=== PATIENT | female | born 1945 | race Caucasian/White ===

== ENCOUNTER 2017-02-27 08:08 | Inpatient (IN) | payer MEDICARE ==
--- NOTE | 2017-02-22 04:05 | HP ---
PREOPERATIVE HISTORY AND PHYSICAL: DATE OF ADMISSION: 02/27/17 PROVIDER: Dr. Shavon Choe. CHIEF COMPLAINT: Right hip pain. HISTORY OF PRESENT ILLNESS: Ms. Daigle is a 71-year-old female who has been followed by Dr. Choe for ongoing pain in her right hip. She states that the pain has been affecting her daily living and is having difficulty walking for any substantial distance. She has failed conservative treatment of pain medications, physical therapy, and activity modification. She would like to proceed with a right total hip arthroplasty. PAST MEDICAL HISTORY: COPD, obstructive sleep apnea, rheumatoid arthritis, spinal stenosis, history of CVA, GERD, hypertension, history of DVT, and hypothyroidism. PAST SURGICAL HISTORY: Hysterectomy, 1974; bilateral oophorectomy, 1990; incisional hernia repair in 1999; small bowel obstruction, 1992; back surgery, 1988; cervical spine fusion, 1988; bunionectomy and hammertoe correction, 2009; right knee surgery in the mid ; right shoulder rotator cuff repair in 2012 ; implanted event monitor in 2012. She reports no complications of anesthesia with those procedures. CURRENT MEDICATIONS: 1. Furosemide 20 mg p.o. every other day as needed. 2. Oxygen 2 L during the day. 3. Zyrtec 10 mg p.o. q. day. 4. Percocet 5/325 mg once daily. 5. Pramipexole 0.125 mg p.o. q.h.s. 6. Estradiol 0.05 mg per 24-hour patch weekly. 7. Aspirin 81 mg p.o. q. day. 8. Voltaren gel 1% applied to the hip twice daily as needed. 9. ProAir HFA 108 mcg/act 1 to 2 inhalations every 4 hours as needed. 10. Lisinopril 5 mg p.o. q. day. 11. Fluticasone 50 mcg/act 2 intranasal puffs once daily. 12. Levothyroxine 100 mcg daily. 13. Omeprazole 20 mg p.o. b.i.d. 14. Gabapentin 600 mg p.o. b.i.d. 15. Colace 100 mg p.o. b.i.d. 16. Calcium 600+D 600/200 mg/units 1 p.o. b.i.d. 17. Tramadol 50 mg 1 to 2 tabs every 6 hours as needed. 18. Celebrex 200 mg by mouth b.i.d. 19. Methotrexate 2.5 mg 6 tabs by mouth every week. ALLERGIES: AUGMENTIN, AMINOPHYLLINE, EPINEPHRINE, ERYTHROMYCIN, MYCOLOG-II, ___ __ JUDITH, LIPITOR, PRAVASTATIN, TAPE, and LATEX. FAMILY HISTORY: Positive for heart disease, kidney disease, and COPD in her father. Stroke in her mother. Cancer in her sibling. SOCIAL HISTORY: The patient is . She lives alone. She is retired. She quit smoking in 2004. She smoked 1 pack per day for 30 years prior to that. She denies alcohol use. She denies illicit drug use. She does not exercise regularly. REVIEW OF SYSTEMS: Constitutional: Negative for recent hospitalizations, fevers, chills, night sweats, or weight loss. Head: Negative for headaches, lightheadedness, or balance problems. Cardiovascular: Negative for chest or arm pain with exertion, history of heart attack, heart murmur, heart palpitations. Positive for high blood pressure. Positive for DVT, but negative for embolism. Respiratory: Positive for chronic cough and shortness of breath with exertion. Positive for COPD. Gastrointestinal: Positive for heartburn. Negative for nausea, vomiting, diarrhea. Positive for constipation. Positive for GERD. Genitourinary: Negative for nighttime urination, frequency of urination, urinary tract infections, or kidney problems. Musculoskeletal: Positive for chronic back and neck pain. Negative for recent fracture. Skin: Negative for rashes, lesions, lumps, or sores. Neurologic: Negative for seizure, stroke, epilepsy, depression, or anxiety. Endocrine: Positive for hypothyroidism. Negative for diabetes. Hematology: Negative for easy bleeding , bruising, or anemia. PHYSICAL EXAMINATION GENERAL: She is a well-developed, well-nourished, pleasant female, in no acute distress at rest. She is alert and oriented x3 with appropriate mood and affect. VITAL SIGNS: The patient is 5 feet tall, 170 pounds, blood pressure 173/80, pulse 73, temperature 96.8. HEENT: Normocephalic, atraumatic. Her hearing and vision are grossly intact. NECK: Her trachea is midline. LUNGS: Decreased breath sounds in all lung vilchis bilaterally. Positive expiratory wheezes. No rales or rhonchi. CARDIOVASCULAR: Regular rate and rhythm. No murmurs, rubs, or gallops. Normal S1, S2. ABDOMEN: Soft, nondistended, nontender with normal bowel sounds. EXTREMITIES: Exam of the right lower extremity, her skin is intact without abrasions or open wounds. She does have some areas of erythema that appeared to be petechiae, but no open lesions. There is no edema, ecchymosis, or gross deformity. She is tender to palpation in the right hip region over the greater trochanter as well as deep in the groin. She only has hip flexion to about 90 degrees. Any rotation causes severe pain. She is distally neurovascularly intact. IMPRESSION: Right hip osteoarthritis. PLAN: The patient is to undergo right total hip arthroplasty by Dr. Choe on . The risks, benefits, and postoperative course were discussed with the patient at length and she would like to proceed. She has obtained medical clearance from her primary care doctor, Dr. Reinoso, as well as Dr. Santamaria, her equipment inspector. She has a prescription from primary care for Lovenox to use for postoperative DVT prophylaxis given her history of prior DVT. She understands to discontinue the aspirin 1 week prior to surgery. She has stopped the methotrexate 2 weeks prior to surgery as well. We will follow up with the patient in the postoperative phase. All of her questions were answered to her full satisfaction. She is understanding to call if she develops any problems or concerns. UZAIR PARSONS [id number]/[facility] #: [id number] DONALD
[~2017-02-27 08:08] MED LIST: Buffered Lidocaine 0.9% SYRIN* 5 ML/SYR SYRINGE INTRADERM ONE; Dexamethasone IV* 4 MG/ML 1 ML (4 MG) IV SLOW PU ONE; Levalbuterol 0.63MG/3ML NEB INH ONE
[2017-02-27] MEDS ORDERED: Clindamycin 900 MG IVPREMIX(* 900 MG/50 ML SDV IV ONE (08:30)
[2017-02-27] MEDS ORDERED: Buffered Lidocaine 0.9% SYRIN* 5 ML/SYR SYRINGE ONE (08:30)
[2017-02-27] MEDS ORDERED: Dexamethasone IV* 4 MG/ML 1 ML (4 MG) ONE (08:30)
[2017-02-27] MEDS ORDERED: Levalbuterol 1.25MG/0.5ML NEB ONE (08:30)
[2017-02-27] MEDS ORDERED: KETAMINE HCL* 50 MG/ML 10 ML VIAL ONE (09:46)
[2017-02-27] MEDS ORDERED: Midazolam* 1 MG/ML 5 ML VIAL (5 MG) ONE ×2 (09:46→11:40)
[2017-02-27] MEDS ORDERED: Morphine PF AMP (0.5MG/ML)* 5 MG/10 ML AMP ONE (09:46)
[2017-02-27] MEDS ORDERED: Propofol* 10 MG/ML 20 ML BTL IV PUSH ONE (09:47)
[2017-02-27] MEDS ORDERED: Ondansetron INJ* 2 MG/ML VIAL ONE (09:47)
[2017-02-27] MEDS ORDERED: Bupivacaine 0.5% SDV PF* 30 ML VIAL ONE (10:35)
[2017-02-27] MEDS ORDERED: Lidocaine 2% PF * 5 ML VIAL ONE (10:52)
[2017-02-27] MEDS ORDERED: Scopolomine PATCH Remove* 1 NOTE MISC PATCH OFF PRN (11:17)
[2017-02-27] MEDS ORDERED: DiMENhydriNATE IV* 50 MG/ML VIAL IV PUSH PRN (11:17)
[2017-02-27] MEDS ORDERED: Naloxone* 0.4 MG/ML 1 ML VIAL IV PRN (11:17)
[2017-02-27] MEDS ORDERED: Ondansetron INJ* 2 MG/ML VIAL IV PRN ×2 (11:17→13:27)
[2017-02-27] MEDS ORDERED: oxyCODONE/Acetamin 5/325 MG* TAB PO PRN ×2 (11:17→13:27)
[2017-02-27] MEDS ORDERED: Nalbuphine* 20 MG/ML 1 ML VIAL IV PRN ×2 (11:17)
[2017-02-27] MEDS ORDERED: Scopolamine 1.5 mg* PATCH TRANSDERM PRN (11:17)
[2017-02-27] MEDS ORDERED: fentaNYL* 50 MCG/ML 2 ML VIAL (100 MCG VIAL) IV PRN (11:17)
[2017-02-27] MEDS ORDERED: oxyCODONE TAB* 5 MG TAB PO PRN (13:27)
[2017-02-27] MEDS ORDERED: Ondansetron TAB* 4 MG PO PRN (13:27)
[2017-02-27] MEDS ORDERED: diPHENhydraMINE IV* 50 MG/ML 1 ml VIAL (BENADRYL) IV PRN (13:27)
[2017-02-27] MEDS ORDERED: Magnesium Hydroxide LIQ* 30 ML UDC PO PRN (13:27)
[2017-02-27] MEDS ORDERED: Polyethylene Glycol 3350* 17 GM PACKET PO PRN (13:27)
[2017-02-27] MEDS ORDERED: Morphine INJ* 2 MG/ML 1 ML SYRINGE IV PRN (13:27)
--- NOTE | 2017-02-27 13:30 | RAD ---
Indication: RIGHT total hip replacement. Comparison: No relevant prior exams available on the [facility] for comparison. Technique: LEFT lateral decubitus crosstable AP pelvis and RIGHT hip 1108 hours Report: RIGHT prosthetic acetabular component in place. Femoral test fit component/reamer in place. No fracture evident. Lateral soft tissue edema and subcutaneous emphysema. IMPRESSION: Intraoperative control film.
[2017-02-27] MEDS ORDERED: Furosemide TAB* 20 MG PO PRN (13:32)
[2017-02-27] MEDS ORDERED: Albuterol HFA INHALER* 8 gm MDI INH PRN (13:32)
[2017-02-27] MEDS ORDERED: ceFAZolin VIAL(*) 1 GM in NS 0.9% 50 ML* 50 ML IVPB SCH (14:00)
--- NOTE | 2017-02-27 14:01 | RAD ---
HISTORY: Status post right hip arthroplasty COMPARISONS: February 15, 2017 VIEWS: 3, Frontal view of the pelvis with frontal and frog-leg views of the right hip FINDINGS: BONE DENSITY: Normal. BONES: The patient is status post right hip arthroplasty. There is no hardware failure or osteolysis. JOINTS: The patient is status post right hip arthroplasty ALIGNMENT: There is no dislocation. SOFT TISSUES: Unremarkable. OTHER FINDINGS: None. IMPRESSION: STATUS POST RIGHT HIP ARTHROPLASTY
[2017-02-27] MEDS: oxyCODONE/Acetamin 5/325 MG* TAB PO PRN ×2 (16:48→20:51)
[2017-02-27] MEDS: Gabapentin CAP(*) 300 MG PO SCH ×2 (16:48→20:49)
[2017-02-27] MEDS ORDERED: Warfarin TAB(*) 6 MG PO ONE (17:00)
[2017-02-27] MEDS: Clindamycin 600 MG IVPREMIX(* 600 MG/50 ML SDV IV SCH (18:46)
[2017-02-27] MEDS ORDERED: Pramipexole TAB* 0.125 MG PO SCH (20:00)
[2017-02-27] MEDS: Mometasone/Formoter 200/5 MDI INH SCH (20:38)
[2017-02-27] MEDS: Docusate CAP* 100 MG PO SCH (20:48)
[2017-02-27] MEDS: Hydroxychloroquine TAB* 200 MG PO SCH (20:49)
[2017-02-27] MEDS: Omeprazole CAP* 20 MG PO SCH (20:50)
[2017-02-28] MEDS: Clindamycin 600 MG IVPREMIX(* 600 MG/50 ML SDV IV SCH ×2 (02:30→11:00)
--- NOTE | 2017-02-28 04:26 | OP ---
DATE OF OPERATION: 02/27/17 - ROOM #348 DATE OF : 43 ATTENDING SURGEON: Shavon Choe MD LOSS CLAIM CLERK: UZAIR Hinojosa. Ms. Alexandra did help throughout the procedure with preparation of the leg, wound retraction, manipulation of the hip, and wound closure. ANESTHESIOLOGIST: Dr. Viramontes ANESTHESIA: Spinal. PRE-OP DIAGNOSIS: Severe end-stage degenerative osteoarthritis of the right hip joint. POST-OP DIAGNOSES: Severe end-stage degenerative osteoarthritis of the right hip joint, osteopenia, complete abductor medius and minimus tear. OPERATIVE PROCEDURE: Right total hip arthroplasty with acetabular bone autografting from the femoral head. Primary abductor tendon repair. COMPLICATION: None. EBL: 300 cc. SPECIMEN: Femoral head and acetabular reaming sent to Pathology. BRIEF HISTORY/INDICATION: Ms. Daigle is a 71-year-old female with years of increasingly severe right hip pain. She failed conservative treatment with antiinflammatories, pain medication, intraarticular injections, and physical therapy. She had difficulty walking with ambulatory assistive device. Radiograph shows [id number] arthritis. The patient elected to undergo a right total hip arthroplasty due to continued pain and decreased quality of life. Informed consent was obtained from the patient. She understood the risks of surgery included but were not limited to bleeding, infection, damage to nearby structures, continued pain, need for further surgery, intraoperative fracture, nerve palsy, hardware failure or loosening, dislocation, leg length discrepancy, stroke, heart attack, blood clot, and . She wished to proceed. HARDWARE USED: Uncemented manish total hip hardware was used. For the acetabulum, a 50 mm cluster hole tritanium cup. 20 mm screw and trident x3 poly liner 36. For the stem an accolade tmzf size 2 with a 127 degree femoral neck. 36 +0 biolox delta femoral head was used. INTRAOPERATIVE FINDINGS: Intraoperatively, the patient was noted to have severe osteopenia throughout the procedure. She had a complete abductor tendon tear of the greater trochanter with proximal and anterior retraction. This involved the entire gluteus medius and minimus. She had total loss of cartilage along the femoral head and acetabulum. She had significant subchondral cyst formation in the weightbearing dome of the acetabulum, which was bone grafted with femoral head autograft. DESCRIPTION OF PROCEDURE: Ms. Daigle was identified in the preanesthesia unit. Her right lower extremity was marked as the correct operative side. Informed consent was signed and placed in the chart. The patient was taken to the operating room and placed under spinal anesthesia. Jacobs catheter was placed. She was placed in the left lateral decubitus position on the pegboard. All bony prominences were well padded. Right lower extremity was prepped and draped in the usual sterile fashion. Preop time-out was made to correctly identify the patient's side and site. Appropriate perioperative antibiotics were given within 1 hour of incision. A 15- cm posterior hip incision was made with a 10-blade. Electrocautery was used to dissect down to at least 7-cm of subcutaneous fat. The lateral fascial layer was incised in line with the skin incision. Charnley retractor was placed and the posterior aspect of the hip joint was visualized. The abductor tendons along the greater trochanter was completely retracted and torn. These were retracted anteriorly and superiorly. They were mobile only a minimal amount when grasped with a polly clamp. Electrocautery was used to create a single capsular and tendon flap along the posterolateral femur. This was tagged with four #5 Ethibonds. Posterior aspect of the hip joint was visualized. The hip was carefully dislocated. Lesser trochanter to center of the femoral head measured 50 mm. Oscillating saw was used to make the appropriate femoral neck cut. The femur was carefully retracted anteriorly. After appropriate placement of retractors, the acetabulum was re-visualized. Long-handle knife was used to remove any remaining labrum from the acetabular rim. The acetabulum was sequentially reamed up to a size 49. A size 49 had a subchondral bleeding bone bed. She was noted to have extreme osteopenia. There was significant cyst formation along the weightbearing dome of the acetabulum. Bone graft was collected from the femoral head and packed into this area. A 49 trial had good fit. Final implant chosen was a Tritanium hemispherical cluster hole shell, size 50. This was impacted into the acetabulum without difficulty. There was appropriate anteversion and abduction angle. There was good stability. One 20- mm screw was placed and secured in the superoposterior quadrant for extra stability. Attention was turned next to preparation of the proximal femur. Canal finder was used to enter the proximal femur. The femur was sequentially broached up to a size 2. A size 2 had good fit. A 127-degree neck trial was chosen as well as a 36 +0 femoral head. Lesser troch to center of the femoral head measured 52 mm. The hip was reduced and taken through a range of motion. The hip was stable in all positions. There was appropriate leg length. Soft tissue tension seemed appropriate, although as mentioned above there was significant abductor tendon tear. The hip was carefully dislocated. All trials were removed. Final implant chosen was an Accolade TMZF, size 2 with a 127-degree neck. This was impacted into the femoral canal and had good stability with appropriate anteversion. A 36 +0 Biolox delta ceramic V40 femoral head was chosen. This was impacted onto the femoral neck. The hip was taken through a range of motion and noted to be stable in all positions. The previously tagged capsule and tendons were reapproximated to the posterolateral femur through 2 trochanteric drill holes. #5 Ethibonds were used to pull the retracted abductor tendon proximally towards the greater trochanter. Repair was performed primarily, although this was difficult due to the chronicity of the tear. The hip was copiously irrigated with sterile saline. Lateral fascial layer was closed using interrupted #1 Vicryls. The rest of the incision was closed in a layered fashion using 0 and 2-0 Vicryls. The skin was closed using running 3-0 Monocryl and Dermabond. Sterile Adaptic, 4x4s, and paper tape were used to cover the incision. The patient's anesthesia was reversed without difficulty. She was taken to the PACU in stable condition. Intended weightbearing will be weightbearing as tolerated. Intended DVT prophylaxis will be Coumadin with a Lovenox bridge. [id number]/[facility] #: [id number] DONALD
[2017-02-28] MEDS: oxyCODONE/Acetamin 5/325 MG* TAB PO PRN ×3 (05:22→17:37)
[2017-02-28 07:18] LABS: Hematocrit 26 % (35-47); Hemoglobin 8.3 g/dl (12.0-16.0); Mean Corpuscular HGB Conc 32 g/dl (31-36); Mean Corpuscular Hemoglobin 33 pg (27-31); Mean Corpuscular Volume 101 fL (80-97); Mean Platelet Volume 8 um3 (7.4-10.4); Red Blood Count 2.53 10^6/ul (4.0-5.4); Red Cell Distribution Width 15 % (10.5-15); White Blood Count 5.9 10^3/ul (3.5-10.8)
[2017-02-28 07:28] LABS: BUN/Creatinine Ratio 21.5 (8-20); Calcium 8.3 mg/dL (8.6-10.3); EGFR Non-African American 71.5 (>60); Potassium 4.2 mmol/L (3.5-5.0)
[2017-02-28] MEDS: Levothyroxine TAB* 100 MCG TAB PO SCH (08:12)
[2017-02-28] MEDS: Mometasone/Formoter 200/5 MDI INH SCH ×2 (08:18→20:06)
--- NOTE | 2017-02-28 08:30 | PN ---
Subjective Date of Service: 02/28/17 Interval History: Ms. Daigle states that she is feeling ok this afternoon. However, she slept very poorly overnight and has had a terrible headache earlier today. She denies chest pain, SOB, nausea, or abdominal pain. Objective Active Medications: Acetaminophen (Tylenol Tab*) 650 mg PO Q4H PRN Albuterol (Ventolin Hfa Inhaler*) 1 - 2 puff INH Q4H PRN Diphenhydramine HCl (Benadryl Iv*) 12.5 mg IV Q6H PRN Docusate Sodium (Colace Cap*) 100 mg PO BID MATIAS Enoxaparin Sodium (Lovenox(*)) 30 mg SUBCUT Q24H MATIAS Estradiol (Climara Patch 0.05 Mg/Day*) 1 patch .SEE ORDER WeSa@0900 MATIAS Gabapentin (Neurontin Cap(*)) 600 mg PO QID MATIAS Hydroxychloroquine Sulfate (Plaquenil Tab*) 400 mg PO BID MATIAS Lactated Ringer's (Lactated Ringers 1000 Ml Bag*) 1,000 mls @ 100 mls/hr IV PER RATE MATIAS Clindamycin HCl/Dextrose (Cleocin 600 Mg Ivpremix(*) Sdv) 600 mg in 50 mls @ 100 mls/hr IV Q8H MATIAS Lactulose (Lactulose*) 30 ml PO Q6H PRN Levothyroxine Sodium (Synthroid Tab*) 100 mcg PO 0800 MATIAS Magnesium Hydroxide (Milk Of Magnesia Liq*) 30 ml PO Q6H PRN Methotrexate (Methotrexate Tab*) 20 mg PO Sa@0900 MATIAS Mometasone Furoate/Formoterol Fumar (Dulera 200/5 Mdi*) 2 puff INH BID MATIAS Morphine Sulfate (Morphine Inj (Syringe)*) 2 mg IV Q2H PRN Omeprazole (Prilosec Cap*) 20 mg PO BID MATIAS Ondansetron HCl (Zofran Inj*) 4 mg IV Q6H PRN Ondansetron HCl (Zofran Tab*) 4 mg PO Q6H PRN Oxycodone HCl (Roxycodone Tab*) 10 mg PO Q4H PRN Oxycodone/Acetaminophen (Percocet 5/325 Tab*) 1 tab PO Q3H PRN Oxycodone/Acetaminophen (Percocet 5/325 Tab*) 2 tab PO Q3H PRN Pharmacy Profile Note (Scopolomine Patch Remove*) 1 note PATCH OFF .AFTER 72 HOURS PRN Polyethylene Glycol/Electrolytes (Miralax*) 17 gm PO DAILY PRN Pramipexole Dihydrochloride (Mirapex Tab*) 0.125 mg PO 1800 MATIAS Scopolamine (Transderm-Scop 1.5 Mg Patch*) 1 patch TRANSDERM Q72H PRN Vital Signs 02/27/17 02/27/17 02/27/17 08:34 13:31 13:35 Temperature 97.2 F 97.3 F Pulse Rate 72 70 68 Respiratory 16 18 18 Rate Blood Pressure 146/61 120/63 118/59 (mmHg) O2 Sat by Pulse 98 98 98 Oximetry 02/27/17 02/27/17 02/27/17 13:40 13:45 14:00 Temperature Pulse Rate 73 70 70 Respiratory 18 18 18 Rate Blood Pressure 117/58 115/55 124/58 (mmHg) O2 Sat by Pulse 98 98 99 Oximetry 02/27/17 02/27/17 02/27/17 14:15 14:30 14:45 Temperature Pulse Rate 72 74 64 Respiratory 16 16 16 Rate Blood Pressure 113/65 122/59 111/61 (mmHg) O2 Sat by Pulse 97 97 97 Oximetry 02/27/17 02/27/17 02/27/17 15:00 15:15 15:30 Temperature 96.8 F Pulse Rate 73 68 67 Respiratory 16 18 16 Rate Blood Pressure 117/57 120/68 117/59 (mmHg) O2 Sat by Pulse 99 98 98 Oximetry 02/27/17 02/27/17 02/27/17 15:50 16:00 16:48 Temperature 96.1 F Pulse Rate 74 74 Respiratory 17 17 16 Rate Blood Pressure 103/36 103/36 (mmHg) O2 Sat by Pulse 96 96 Oximetry 02/27/17 02/27/17 02/27/17 17:04 17:58 18:11 Temperature 96.3 F 97.7 F Pulse Rate 74 87 Respiratory 16 16 Rate Blood Pressure 118/56 114/60 (mmHg) O2 Sat by Pulse 95 95 96 Oximetry 02/27/17 02/27/17 02/27/17 18:17 18:47 19:53 Temperature 97.4 F Pulse Rate 74 Respiratory 16 18 16 Rate Blood Pressure 94/67 (mmHg) O2 Sat by Pulse 98 Oximetry 02/27/17 02/27/17 02/27/17 20:00 20:41 20:49 Temperature Pulse Rate Respiratory 17 17 Rate Blood Pressure (mmHg) O2 Sat by Pulse 96 Oximetry 02/27/17 02/27/17 02/27/17 20:51 21:46 22:49 Temperature 97.6 F Pulse Rate 80 Respiratory 17 16 16 Rate Blood Pressure 109/56 (mmHg) O2 Sat by Pulse 95 Oximetry 02/27/17 02/28/17 02/28/17 22:51 00:50 02:34 Temperature Pulse Rate Respiratory 16 17 17 Rate Blood Pressure (mmHg) O2 Sat by Pulse Oximetry 02/28/17 02/28/17 02/28/17 02:50 03:34 03:50 Temperature 98.1 F Pulse Rate 84 Respiratory 16 16 16 Rate Blood Pressure 103/50 (mmHg) O2 Sat by Pulse 98 Oximetry 02/28/17 02/28/17 02/28/17 05:22 08:13 08:22 Temperature Pulse Rate Respiratory 16 18 Rate Blood Pressure (mmHg) O2 Sat by Pulse 87 Oximetry Oxygen Devices in Use Now: None Appearance: Female lying in bed in NAD Eyes: No Scleral Icterus Ears/Nose/Mouth/Throat: Mucous Membranes Moist Neck: Trachea Midline Respiratory: Symmetrical Chest Expansion and Respiratory Effort, Clear to Auscultation Cardiovascular: NL Sounds; No Murmurs; No JVD, No Edema Abdominal: NL Sounds; No Tenderness; No Distention Lymphatic: No Cervical Adenopathy Extremities: No Edema Skin: No Rash or Ulcers Neurological: Alert and Oriented x 3, NL Muscle Strength and Tone Nutrition: Taking PO's Result Diagrams: 02/28/17 05:34 02/28/17 05:34 Assess/Plan/Problems-Billing Assessment: Ms. Daigle is a 71 yo female with a PMH of COPD, YOLA on home CPAP, and RA on methotrexate who was admitted on 02/27/17 for an elective right hip replacement. - Patient Problems (1) Status post right hip replacement Comment: - Management per ortho. - Pain meds prn with bowel regimen. - PT/OT. - Monitor H/H. (2) YOLA (obstructive sleep apnea) Comment: - Continue home cpap. (3) COPD (chronic obstructive pulmonary disease) Comment: - Asymptomatic. - Continue home 2L NC. (4) Rheumatoid arthritis Comment: - Continue methotrexate and plaquenil. (5) Hypertension Comment: - SBP 100's. - Hold lisinopril and hctz for now. (6) DVT prophylaxis Comment: - Warfarin with lovenox per ortho. (7) Full code status
[2017-02-28] MEDS ORDERED: Lisinopril TAB* 5 MG PO SCH (09:00)
--- NOTE | 2017-02-28 09:32 | PN ---
Progress Note - Progress Note Date of Service: 02/28/17 SOAP: Subjective: POD #1 Right SONYA, doing ok. States that she had significant pain last night, seems to be better today. Denies CP/SOB, calf pain. Reports numbness to lateral left knee which has resolved at this point. Objective: Vitals: Temp Pulse Resp BP Pulse Ox 98.0 F 83 18 95/47 87 02/28/17 07:25 02/28/17 07:25 02/28/17 08:13 02/28/17 07:25 02/28/17 08:22 Gen: A&Ox3, NAD at rest sitting in chair Right hip: Dressing C/D/I, thigh soft with moderate ttp. +f/e at ankle and MTPs , N/V intact Labs: Laboratory Results - last 24 hr 02/28/17 02/28/17 02/28/17 05:34 05:34 05:34 WBC 5.9 RBC 2.53 L Hgb 8.3 L Hct 26 L MCV 101 H MCH 33 H MCHC 32 RDW 15 Plt Count 177 MPV 8 Neut % (Auto) 55.5 Lymph % (Auto) 27.3 [place] % (Auto) 15.7 H Eos % (Auto) 0.9 Baso % (Auto) 0.6 Absolute Neuts (auto) 3.3 Absolute Lymphs (auto) 1.6 Absolute Monos (auto) 0.9 H Absolute Eos (auto) 0.1 Absolute Basos (auto) 0 Absolute Nucleated RBC 0.02 Nucleated RBC % 0.3 INR (Anticoag Therapy) 0.99 Sodium 137 Potassium 4.2 Chloride 104 Carbon Dioxide 28 Anion Gap 5 BUN 17 Creatinine 0.79 Est GFR ( Amer) 92.0 Est GFR (Non-Af Amer) 71.5 BUN/Creatinine Ratio 21.5 H Glucose 99 Calcium 8.3 L Assessment: POD #1 Right SONYA Plan: INR 0.99, Coumadin 8mg tonight with lovenox bridge Cont PT/OT, PMRU consult as pt is fairly deconditioned with co-morbidities Cont current pain medications
[2017-02-28] MEDS: Omeprazole CAP* 20 MG PO SCH ×2 (09:56→19:46)
[2017-02-28] MEDS: Gabapentin CAP(*) 300 MG PO SCH ×4 (09:56→20:11)
[2017-02-28] MEDS: Docusate CAP* 100 MG PO SCH ×2 (09:58→19:46)
[2017-02-28] MEDS: Hydroxychloroquine TAB* 200 MG PO SCH ×2 (10:01→21:38)
[2017-02-28] MEDS: Enoxaparin(*) 30 MG/0.3 ML SYR SUBCUT SCH (14:31)
[2017-02-28] MEDS: traMADol TAB* 50 MG PO PRN ×2 (14:50→21:38)
--- NOTE | 2017-02-28 15:30 | CONS ---
HOSPITAL MEDICINE CONSULTATION REPORT: DATE OF CONSULT: 02/27/17 ATTENDING PHYSICIAN: Dr. Shavon Choe. CONSULTING PHYSICIAN: Dr. Forrest Spring (dictation provided by Kylah Dobbs NP). REASON FOR CONSULT: Medical comanagement in a patient admitted for right hip arthroplasty. HISTORY OF PRESENT ILLNESS: Ms. Daigle is a 71-year-old female with a past medical history of COPD on 2 L nasal cannula at home as well as obstructive sleep apnea on CPAP, rheumatoid arthritis, history of CVA, hypertension, and history of DVT not on chronic anticoagulation, who presented to the hospital on 02/27/17 for a planned right total hip arthroplasty. Please see the dictated H and P from Dr. Choe for complete details. In brief, the patient had failed management with conservative measures and therefore opted for surgical intervention. Ms. Daigle states that prior coming into surgery, she has had acute pain. She does continue on her 2 L nasal cannula as needed during the day. She takes furosemide every other day. She does have a history of a DVT associated with an injury to her leg. She has a history of CVA with symptoms of difficulty speaking and confusion. She reports her only deficit that remains from that is difficulty with confusing numbers at times. She states that prior coming to surgery, she was having no acute complaints. She has had no chest pain. No cough. No fever. No shortness of breath. No nausea. No abdominal pain. No diarrhea. PAST MEDICAL HISTORY: 1. COPD on 2 L nasal cannula. 2. Obstructive sleep apnea on home CPAP. 3. Rheumatoid arthritis on chronic methotrexate therapy. 4. Spinal stenosis. 5. History of CVA. 6. GERD. 7. Hypertension. 8. History of DVT associated with leg a injury. 9. Hypothyroidism. PAST SURGICAL HISTORY: 1. Hysterectomy with bilateral oophorectomy. 2. Incisional hernia repair. 3. Small bowel obstruction. 4. Back surgery. 5. Cervical spine fusion. 6. Bunionectomy and hammertoe correction. 7. Right knee surgery. 8. Right shoulder rotator cuff repair. 9. Implanted event monitor in 2012. MEDICATIONS OUTPATIENT: 1. Furosemide 20 mg p.o. every other day. 2. Zyrtec 10 mg p.o. daily. 3. Percocet 5/325 mg p.o. as needed. 4. Pramipexole 0.125 mg p.o. q.h.s. 5. Estradiol 0.05 mg q. 24 hours weekly. 6. Aspirin 81 mg p.o. daily. 7. Voltaren gel 1% as needed. 8. ProAir as needed. 9. Lisinopril 5 mg daily. 10. Fluticasone 50 mcg two puffs inhaled daily. 11. Levothyroxine 100 mcg daily. 12. Omeprazole 20 mg p.o. b.i.d. 13. Gabapentin 600 mg p.o. b.i.d. 14. Colace 100 mg p.o. b.i.d. 15. Calcium with vitamin D p.o. b.i.d. 16. Tramadol 50 mg 1 to 2 tabs q. 6 hours as needed. 17. Celebrex 200 mg twice daily. 18. Methotrexate 2.5 mg 6 tabs by mouth every week. ALLERGIES: 1. AUGMENTIN. 2. AMINOPHYLLINE. 3. EPINEPHRINE. 4. ERYTHROMYCIN. 5. LIPITOR. 6. PRAVASTATIN. 7. TAPE. 8. LATEX. 9. CLAVULANIC ACID. 10. MYCOLOG CREAM. FAMILY HISTORY: Reviewed and noncontributory. SOCIAL HISTORY: No report of alcohol, tobacco, or drug use. Her is her healthcare proxy. REVIEW OF SYSTEMS: A 14-point review of systems was completed with Ms. Daigle and all those not mentioned above were negative. PHYSICAL EXAM: Vital Signs: Temperature 97.7, pulse rate 87, respiratory rate 16, O2 saturation 95% on 2 L nasal cannula, blood pressure 114/60. General: Ms. Daigle is sitting up on the bed. She is in no acute distress. Now, she is alert. She is oriented x3. She moves all extremities equally. There is no facial asymmetry or focal weakness. Extra-ocular movements are intact. Heart: S1 and S2. No murmur, rub, or gallop and regular. Lungs: Clear to auscultation bilaterally with no accessory muscle use and good aeration. Abdomen: Soft and nontender with bowel sounds positive x4. Extremities: No cyanosis or edema. Skin: Intact. DIAGNOSTIC STUDIES/LAB DATA: Preoperatively, WBC 8.5, hemoglobin 12.6, hematocrit 39, and platelet count 185. Sodium 140, potassium 4.0, BUN 29, creatinine 1.01, and glucose 80. ASSESSMENT: Ms. Daigle is a 71-year-old female with past medical history of chronic obstructive pulmonary disease on 2 L nasal cannula, obstructive sleep apnea on CPAP and DVT after a leg injury not on chronic anticoagulation, history of cerebrovascular accident, and history of rheumatoid arthritis on chronic methotrexate therapy who presents to the hospital for a right total hip arthroplasty. Our plans and recommendations are as follows: 1. Right total hip arthroplasty: Management will continue to be per orthopedic services. The patient will have pain medications p.r.n. with bowel regimen. She will have Physical and Occupational Therapy consulting and treating and finally we will monitor H and H closely. 2. Obstructive sleep apnea. The patient is to continue her home CPAP. 3. Chronic obstructive pulmonary disease. No evidence of exacerbation. The patient is to continue her home 2 L nasal cannula and she will be strongly encouraged to perform cough and deep breathing exercises with the incentive spirometer. 4. Rheumatoid arthritis. The patient will continue her home methotrexate. 5. Hypertension. The patient will be holding lisinopril and furosemide in the acute postoperative period. 6. Gastroesophageal reflux disease. Continue omeprazole. 7. DVT prophylaxis with Lovenox and warfarin per ortho. 8. Code status is full code. TIME SPENT: Approximately 60 minutes were spent on the consultation of this patient, more than half time spent with the patient at the bedside reviewing the events leading up to this hospitalization, performing the physical examination, and reviewing my plan of care. KYLAH DOBBS NP [id number]/[facility] #: [id number] DONALD
[2017-02-28] MEDS: Pramipexole TAB* 0.125 MG PO SCH (17:36)
[2017-02-28] MEDS: Acetaminophen TAB* 325 MG PO PRN (19:46)
[2017-02-28] MEDS: MELATONIN 5 MG PO SCH (22:03)
[2017-03-01] MEDS ORDERED: Furosemide IV* 10 MG/ML 2 ML VIAL (20 MG) IV ONE (00:48)
[2017-03-01] MEDS: traMADol TAB* 50 MG PO PRN ×4 (04:23→22:31)
[2017-03-01 06:45] LABS: Hematocrit 25 % (35-47); Hemoglobin 8.3 g/dl (12.0-16.0); Mean Corpuscular HGB Conc 33 g/dl (31-36); Mean Corpuscular Hemoglobin 33 pg (27-31); Mean Corpuscular Volume 100 fL (80-97); Mean Platelet Volume 8 um3 (7.4-10.4); Red Blood Count 2.49 10^6/ul (4.0-5.4); Red Cell Distribution Width 15 % (10.5-15); White Blood Count 7.9 10^3/ul (3.5-10.8)
--- NOTE | 2017-03-01 07:59 | RAD ---
INDICATION: Short of breath COMPARISON: February 15, 2017 TECHNIQUE: An AP portable view obtained at 0000 hours is submitted. FINDINGS: Bones/Soft Tissues: There are no acute bony findings. Cardiomediastinal: The cardiomediastinal silhouette is normal. The central pulmonary vessels are mildly prominent and there is presumed mild interstitial edema Lungs: Underlying mild chronic interstitial changes.. Pleura: There are no pleural effusions. Other: None IMPRESSION: SUSPECT MILD INTERSTITIAL EDEMA SUPERIMPOSED UPON CHRONIC INTERSTITIAL CHANGE. SUGGEST FOLLOW-UP.
[2017-03-01] MEDS: Levothyroxine TAB* 100 MCG TAB PO SCH (08:04)
[2017-03-01] MEDS: Mometasone/Formoter 200/5 MDI INH SCH ×2 (08:05→19:24)
[2017-03-01] MEDS: Gabapentin CAP(*) 300 MG PO SCH ×4 (09:04→21:45)
[2017-03-01] MEDS: Hydroxychloroquine TAB* 200 MG PO SCH ×2 (09:04→21:46)
[2017-03-01] MEDS: Omeprazole CAP* 20 MG PO SCH ×2 (09:07→21:45)
[2017-03-01] MEDS: Docusate CAP* 100 MG PO SCH ×2 (09:07→21:46)
[2017-03-01] MEDS: Acetaminophen TAB* 325 MG PO PRN (09:08)
--- NOTE | 2017-03-01 09:22 | PN ---
Progress Note - Progress Note Date of Service: 03/01/17 SOAP: Subjective: 71 y/o female s/p R SONYA 02/[address] Choe. patient reports feeling better today after d/c of percocet- less nausea. patient adequately controlled with Ultram, Tylenol at rest. patient does not want to try another narcotic at this time. mild fever 101 overnight, CXR negative. Objective: General- Well appearing, NAD MSK- Vital Signs Temp 99.0 F 03/01/17 04:07 Pulse 84 03/01/17 04:07 Resp 17 03/01/17 09:04 BP 129/48 03/01/17 04:07 Pulse Ox 93 03/01/17 04:07 Intake & Output 02/28/17 03/01/17 03/01/17 18:59 06:59 18:59 Intake Total 725 745 Output Total 1600 1750 Balance -875 -1005 Intake: IV Fluids 500 ABX - CLINDAMYCIN 50 LR 450 Oral 225 745 Output: Urine 0 Jacobs 1600 1750 Other: # Bowel Movements 0 Laboratory Results - last 24 hr 03/01/17 03/01/17 05:57 05:57 WBC 7.9 RBC 2.49 L Hgb 8.3 L Hct 25 L MCV 100 H MCH 33 H MCHC 33 RDW 15 Plt Count 167 MPV 8 Neut % (Auto) 65.8 Lymph % (Auto) 17.2 L [place] % (Auto) 16.0 H Eos % (Auto) 0.5 Baso % (Auto) 0.5 Absolute Neuts (auto) 5.2 Absolute Lymphs (auto) 1.4 Absolute Monos (auto) 1.3 H Absolute Eos (auto) 0 Absolute Basos (auto) 0 Absolute Nucleated RBC 0 Nucleated RBC % 0 INR (Anticoag Therapy) 1.30 H Assessment: 71 y/o female s/p R SONYA 02/[address] Choe. Plan: - DVT prophylaxis- lovenox, coumadin 8mg tonight - PMRU consult placed - Tylenol changed to every 6 hours scheduled, can be increased as necessary - Continue PT OT - UA ordered Active Medications Generic Name Dose Route Start Last Admin Trade Name Freq PRN Reason Stop Dose Admin Acetaminophen 650 mg 03/01/17 10:00 Tylenol Tab* PO Q6H MATIAS Albuterol 1 - 2 puff 02/27/17 13:32 02/28/17 19:46 Ventolin Hfa Inhaler* INH 1 puff Q4H PRN Administration WHEEZING Diphenhydramine HCl 12.5 mg 02/27/17 13:27 Benadryl Iv* IV Q6H PRN PRURITIS Docusate Sodium 100 mg 02/27/17 21:00 03/01/17 09:07 Colace Cap* PO 100 mg BID MATIAS Administration Enoxaparin Sodium 30 mg 02/28/17 14:00 02/28/17 14:31 Lovenox(*) SUBCUT 30 mg Q24H MATIAS Administration Estradiol 1 patch 03/02/17 09:00 [place]ara Patch 0.05 Mg/Day* .SEE ORDER WeSa@0900 [facility] Gabapentin 600 mg 02/27/17 17:00 03/01/17 09:04 Neurontin Cap(*) PO 600 mg QID MATIAS Administration Hydroxychloroquine Sulfate 400 mg 02/27/17 21:00 03/01/17 09:04 Plaquenil Tab* PO 400 mg BID MATIAS Administration Lactulose 30 ml 02/27/17 13:27 Lactulose* PO Q6H PRN constipation Levothyroxine Sodium 100 mcg 02/28/17 08:00 03/01/17 08:04 Synthroid Tab* PO 100 mcg 0800 MATIAS Administration Magnesium Hydroxide 30 ml 02/27/17 13:27 02/28/17 21:38 Milk Of Magnesia Liq* PO 30 ml Q6H PRN Administration constipation Melatonin 2 tab 02/28/17 21:00 02/28/17 22:03 Melatonin (Nf) PO Not Given BEDTIME MATIAS Methotrexate 20 mg 03/02/17 09:00 Methotrexate Tab* PO Sa@0900 [facility] Mometasone Furoate/Formoterol Fumar 2 puff 02/27/17 21:00 03/01/17 08:05 Dulera 200/5 Mdi* INH 2 puff BID MATIAS Administration Morphine Sulfate 2 mg 02/27/17 13:27 02/28/17 02:34 Morphine Inj (Syringe)* IV 2 mg Q2H PRN Administration PAIN Omeprazole 20 mg 02/27/17 21:00 03/01/17 09:07 Prilosec Cap* PO 20 mg BID MATIAS Administration Ondansetron HCl 4 mg 02/27/17 13:27 07/13/17 13:28 Zofran Inj* IV 4 mg Q6H PRN Administration nausea Ondansetron HCl 4 mg 02/27/17 13:27 02/28/17 19:46 Zofran Tab* PO 4 mg Q6H PRN Administration NAUSEA Oxycodone HCl 10 mg 02/27/17 13:27 Roxycodone Tab* PO Q4H PRN SEVERE PAIN Oxycodone/Acetaminophen 1 tab 02/27/17 13:27 Percocet 5/325 Tab* PO Q3H PRN PAIN - MODERATE Oxycodone/Acetaminophen 2 tab 02/27/17 13:27 02/28/17 17:37 Percocet 5/325 Tab* PO 2 tab Q3H PRN Administration PAIN - MODERATE Pharmacy Profile Note 1 note 02/27/17 11:17 Scopolomine Patch Remove* PATCH OFF 03/02/17 11:19 .AFTER 72 HOURS PRN nausea Polyethylene Glycol/Electrolytes 17 gm 02/27/17 13:27 Miralax* PO DAILY PRN Constipation Pramipexole Dihydrochloride 0.125 mg 02/28/17 18:00 02/28/17 17:36 Mirapex Tab* PO 0.125 mg 1800 MATIAS Administration Scopolamine 1 patch 02/27/17 11:17 Transderm-Scop 1.5 Mg Patch* TRANSDERM Q72H PRN nausea Tramadol HCl 100 mg 02/28/17 12:14 03/01/17 04:23 Ultram* PO 100 mg Q6H PRN Administration PAIN Warfarin Sodium 8 mg 03/01/17 17:00 Coumadin Tab(*) PO 03/01/17 17:01 ONCE@1700 ONE Protocol
[2017-03-01] MEDS: Acetaminophen TAB* 325 MG PO SCH ×3 (09:41→21:46)
--- NOTE | 2017-03-01 11:44 | PN ---
Subjective Date of Service: 03/01/17 Interval History: This is a 71 yo female with COPD, RA, YOLA on 2L of supp O2 at baseline is POD # 2 s/p R SONYA. Hospitalist group is consulting medical co-management. Patient was struggling with severe nausea yesterday associated with pain medication. She has been trying to manage her pain with Tramadol and Tylenol only. Her nausea has resolved today. She developed SOB overnight, CXR demonstrated some mild PVC and she was given 20mg IV Lasix. Patient reports good diuresis of this and her dyspnea has returned to baseline. No additional cough or CP. No abd pain, n/v. Objective Active Medications: Acetaminophen (Tylenol Tab*) 650 mg PO Q6H [facility] Last Admin: 03/01/17 09:41 Dose: Not Given Albuterol (Ventolin Hfa Inhaler*) 1 - 2 puff INH Q4H PRN PRN Reason: WHEEZING Last Admin: 02/28/17 19:46 Dose: 1 puff Diphenhydramine HCl (Benadryl Iv*) 12.5 mg IV Q6H PRN PRN Reason: PRURITIS Docusate Sodium (Colace Cap*) 100 mg PO BID [facility] Last Admin: 03/01/17 09:07 Dose: 100 mg Enoxaparin Sodium (Lovenox(*)) 30 mg SUBCUT Q24H [facility] Last Admin: 02/28/17 14:31 Dose: 30 mg Estradiol (Climara Patch 0.05 Mg/Day*) 1 patch .SEE ORDER WeSa@0900 [facility] Gabapentin (Neurontin Cap(*)) 600 mg PO QID [facility] Last Admin: 03/01/17 09:04 Dose: 600 mg Hydroxychloroquine Sulfate (Plaquenil Tab*) 400 mg PO BID [facility] Last Admin: 03/01/17 09:04 Dose: 400 mg Lactulose (Lactulose*) 30 ml PO Q6H PRN PRN Reason: constipation Levothyroxine Sodium (Synthroid Tab*) 100 mcg PO 0800 [facility] Last Admin: 03/01/17 08:04 Dose: 100 mcg Magnesium Hydroxide (Milk Of Magnesia Liq*) 30 ml PO Q6H PRN PRN Reason: constipation Last Admin: 02/28/17 21:38 Dose: 30 ml Melatonin (Melatonin (Nf)) 2 tab PO BEDTIME [facility] Last Admin: 02/28/17 22:03 Dose: Not Given Methotrexate (Methotrexate Tab*) 20 mg PO Sa@0900 [facility] Mometasone Furoate/Formoterol Fumar (Dulera 200/5 Mdi*) 2 puff INH BID [facility] Last Admin: 03/01/17 08:05 Dose: 2 puff Morphine Sulfate (Morphine Inj (Syringe)*) 2 mg IV Q2H PRN PRN Reason: PAIN Last Admin: 02/28/17 02:34 Dose: 2 mg Omeprazole (Prilosec Cap*) 20 mg PO BID [facility] Last Admin: 03/01/17 09:07 Dose: 20 mg Ondansetron HCl (Zofran Inj*) 4 mg IV Q6H PRN PRN Reason: nausea Last Admin: 02/28/17 13:28 Dose: 4 mg Ondansetron HCl (Zofran Tab*) 4 mg PO Q6H PRN PRN Reason: NAUSEA Last Admin: 02/28/17 19:46 Dose: 4 mg Oxycodone HCl (Roxycodone Tab*) 10 mg PO Q4H PRN PRN Reason: SEVERE PAIN Oxycodone/Acetaminophen (Percocet 5/325 Tab*) 1 tab PO Q3H PRN PRN Reason: PAIN - MODERATE Oxycodone/Acetaminophen (Percocet 5/325 Tab*) 2 tab PO Q3H PRN PRN Reason: PAIN - MODERATE Last Admin: 02/28/17 17:37 Dose: 2 tab Pharmacy Profile Note (Scopolomine Patch Remove*) 1 note PATCH OFF .AFTER 72 HOURS PRN PRN Reason: nausea Stop: 03/02/17 11:19 Pharmacy Profile Note (Coumadin Daily Reminder*) 0 note FOLLOW UP 1700 [facility] Polyethylene Glycol/Electrolytes (Miralax*) 17 gm PO DAILY PRN PRN Reason: Constipation Pramipexole Dihydrochloride (Mirapex Tab*) 0.125 mg PO 1800 [facility] Last Admin: 02/28/17 17:36 Dose: 0.125 mg Scopolamine (Transderm-Scop 1.5 Mg Patch*) 1 patch TRANSDERM Q72H PRN PRN Reason: nausea Tramadol HCl (Ultram*) 100 mg PO Q6H PRN PRN Reason: PAIN Last Admin: 03/01/17 10:25 Dose: 100 mg Warfarin Sodium (Coumadin Tab(*)) 8 mg PO ONCE@1700 ONE PRN Reason: Protocol Stop: 03/01/17 17:01 Vital Signs: Temp Pulse Resp BP Pulse Ox 99.2 F 90 16 98/38 100 03/01/17 07:34 03/01/17 07:34 03/01/17 10:25 03/01/17 07:34 03/01/17 08:00 Oxygen Devices in Use Now: Nasal Cannula - 2L Appearance: Well appearing elderly female in NAD Respiratory: Symmetrical Chest Expansion and Respiratory Effort, Clear to Auscultation Cardiovascular: NL Sounds; No Murmurs; No JVD, RRR Extremities: No Edema Neurological: Alert and Oriented x 3 Result Diagrams: 03/01/17 05:57 02/28/17 05:34 Diagnostic Imaging: CXR 02/28 - mild PVC Assess/Plan/Problems-Billing Assessment: Ms. Daigle is a 71 yo female with a PMH of COPD, YOLA on home CPAP, and RA on methotrexate who was admitted on 02/27/17 for an elective right hip replacement. - Patient Problems (1) Status post right hip replacement Comment: - POD #2 - Management per ortho. (2) SOB (shortness of breath) Comment: Mild PVC on CXR last night Improved with 20mg IV Lasix No additional treatment necessary (3) COPD (chronic obstructive pulmonary disease) Comment: - Asymptomatic, no acute exacerbation - Continue home 2L NC. (4) Hypertension Comment: - Still mild hypotension, cont to hold lisinopril and hctz but can likely resume tomorrow (5) YOLA (obstructive sleep apnea) Comment: - Continue home cpap. (6) Rheumatoid arthritis Comment: - Continue methotrexate and plaquenil. (7) DVT prophylaxis Comment: - Warfarin with lovenox per ortho. (8) Full code status Status and Disposition: Inpatient. Dispo per ortho, but plan to dc today. No acute medical concerns or reason to delay discharge from a medical perspective
--- NOTE | 2017-03-01 12:37 | DS ---
Discharge Summary Date of Admission: 02/27/2017 Date of Discharge: 03/01/2017 Provider: Dr Babak Choe Principle Diagnosis: Right total hip replacement due to severe right hip osteoarthritis Secondary Diagnoses: See H&P Principle procedure: Right total hip arthroplasty Consultations: Physical therapy, occupational therapy, medicine HPI: Refer to H&P Hospital Course: The patient was admitted on 02/27/2017 and underwent a right total hip arthroplasty by Dr. Choe. The arthroplasty required acetabular bone autografting from the femoral head.. She tolerated the procedure well. The patient had spinal anesthesia and was quite comfortable in the immediate postoperative period. On POD#1 the patients H&H was XXX. Dressing was CDI, she was neurovascularly intact with good sensation distal to the right hip. She had difficulty with post-operative pain management, becoming very nauseated with narcotic medication and was placed on tylenol every 6 hours and Ultram 100mg every 6 hours PRN. She could demonstrate dorsi and plantar flexion with good strength. Participation in physical and occupational therapy was begun. . On POD#2 the urinary catheter was discontinued and the patient was able to void spontaneously. The dressing was changed and the wound was found to be benign with minimal drainage and erythema. Vital signs were stable and the patient was afebrile. POD#2 the patient was cleared by physical therapy for safe discharge to [facility]. She will continue with the exercises learned with physical therapy. At discharge the H&H was 8.3/25, vital signs were stable and the INR value was 1.3. The patient was discharged with a prescription for Coumadin 2 mg. The INR will be monitored on Mondays and and the Coumadin dose adjusted accordingly. The patient will resume the home medications as indicated in the discharge instructions. Melody and/or sutures will be removed in 10-[address] Lake office visit Medications at discharge: Acetaminophen (Tylenol Tab*) 650 mg PO Q6H MATIAS Albuterol (Ventolin Hfa Inhaler*) 1 - 2 puff INH Q4H PRN Docusate Sodium (Colace Cap*) 100 mg PO BID [facility] Gabapentin (Neurontin Cap(*)) 600 mg PO QID [facility]IAS Hydroxychloroquine Sulfate (Plaquenil Tab*) 400 mg PO BID [facility]IAS Levothyroxine Sodium (Synthroid Tab*) 100 mcg PO 0800 [facility] Melatonin (Melatonin (Nf)) 2 tab PO BEDTIME [facility]IAS Methotrexate (Methotrexate Tab*) 20 mg PO Sa@0900 [facility] Mometasone Furoate/Formoterol Fumar (Dulera 200/5 Mdi*) 2 puff INH BID MATIAS Omeprazole (Prilosec Cap*) 20 mg PO BID MATIAS Tramadol HCl (Ultram*) 50-100 mg PO Q6H PRN Warfarin Sodium (Coumadin Tab(*)) As directed daily at 5PM 03/01- 6mg 03/02- 4mg 03/03- 2mg INR 03/04 Condition: Stable Disposition: Home to discharge to [facility], INR draws on Saturday and Follow up: Patient will follow up with Dr. Choe in 10-14 days at [facility] Orthopedics Vital Signs Temp 99.2 F 03/01/17 07:34 Pulse 90 03/01/17 07:34 Resp 16 03/01/17 10:25 BP 98/38 03/01/17 07:34 Pulse Ox 100 03/01/17 08:00 Intake & Output 02/28/17 03/01/17 03/01/17 18:59 06:59 18:59 Intake Total 725 745 Output Total 1600 1750 Balance -875 -1005 Intake: IV Fluids 500 ABX - CLINDAMYCIN 50 LR 450 Oral 225 745 Output: Urine 0 Jacobs 1600 1750 Other: # Bowel Movements 0 Laboratory Results - last 24 hr 03/01/17 03/01/17 05:57 05:57 WBC 7.9 RBC 2.49 L Hgb 8.3 L Hct 25 L MCV 100 H MCH 33 H MCHC 33 RDW 15 Plt Count 167 MPV 8 Neut % (Auto) 65.8 Lymph % (Auto) 17.2 L [place] % (Auto) 16.0 H Eos % (Auto) 0.5 Baso % (Auto) 0.5 Absolute Neuts (auto) 5.2 Absolute Lymphs (auto) 1.4 Absolute Monos (auto) 1.3 H Absolute Eos (auto) 0 Absolute Basos (auto) 0 Absolute Nucleated RBC 0 Nucleated RBC % 0 INR (Anticoag Therapy) 1.30 H
[2017-03-01] MEDS: Enoxaparin(*) 30 MG/0.3 ML SYR SUBCUT SCH (13:39)
[2017-03-01] MEDS: NS 0.9% 250 ML* 250 ML IVPB ONE ×2 (14:30→15:34)
[2017-03-01] MEDS ORDERED: Warfarin TAB(*) 4 MG PO ONE (17:00)
[2017-03-01] MEDS: Pramipexole TAB* 0.125 MG PO SCH (17:56)
[2017-03-01] MEDS: MELATONIN 5 MG PO SCH (22:16)
[2017-03-01] MEDS ORDERED: CMCS: Melatonin (NF) 3 MG TAB PO SCH (22:30)
[2017-03-01 22:44] LABS: Urine Bilirubin Negative (Negative); Urine Glucose Negative (Negative); Urine Nitrite Negative (Negative)
[2017-03-02] MEDS: traMADol TAB* 50 MG PO PRN ×2 (03:34→09:35)
[2017-03-02] MEDS: Acetaminophen TAB* 325 MG PO SCH ×2 (03:34→09:35)
[2017-03-02 07:42] LABS: Hematocrit 24 % (35-47); Hemoglobin 7.9 g/dl (12.0-16.0); Mean Corpuscular HGB Conc 33 g/dl (31-36); Mean Corpuscular Hemoglobin 33 pg (27-31); Mean Corpuscular Volume 101 fL (80-97); Mean Platelet Volume 8 um3 (7.4-10.4); Red Cell Distribution Width 15 % (10.5-15); White Blood Count 7.4 10^3/ul (3.5-10.8)
[2017-03-02] MEDS: Levothyroxine TAB* 100 MCG TAB PO SCH (07:54)
[2017-03-02] MEDS: Omeprazole CAP* 20 MG PO SCH (08:58)
[2017-03-02] MEDS: Docusate CAP* 100 MG PO SCH (08:58)
[2017-03-02] MEDS: Hydroxychloroquine TAB* 200 MG PO SCH (08:58)
[2017-03-02] MEDS: Gabapentin CAP(*) 300 MG PO SCH (08:59)
[2017-03-02] MEDS ORDERED: Methotrexate TAB* 2.5 MG PO SCH (09:00)
[2017-03-02] MEDS ORDERED: Estradiol PATCH 0.05MG/DAY* 1 PATCH SCH (09:00)
[2017-03-02] MEDS: Mometasone/Formoter 200/5 MDI INH SCH (09:02)
[2017-03-02 09:46] VITALS: BP 109/49
--- NOTE | 2017-03-02 09:47 | PN ---
Progress Note - Progress Note Date of Service: 03/02/17 SOAP: Subjective: Pt is doing well. DC today to [facility]. Pain controlled no CP, F/C or calf pain. Objective: WDWN, A&O x3 RLE- inc c/d/i, dressing changed, +DF/PF ankle, NVI Vital Signs Temp Pulse Resp BP Pulse Ox 98.8 F 92 16 124/45 98 03/02/17 02:53 03/02/17 02:53 03/02/17 09:35 03/02/17 02:53 03/02/17 02:53 Laboratory Results - last 24 hr 03/01/17 03/02/17 03/02/17 20:45 07:19 07:19 WBC 7.4 RBC 2.40 L Hgb 7.9 L Hct 24 L MCV 101 H MCH 33 H MCHC 33 RDW 15 Plt Count 172 MPV 8 Neut % (Auto) 71.0 Lymph % (Auto) 16.4 L [place] % (Auto) 11.1 H Eos % (Auto) 1.2 Baso % (Auto) 0.3 Absolute Neuts (auto) 5.3 Absolute Lymphs (auto) 1.2 Absolute Monos (auto) 0.8 Absolute Eos (auto) 0.1 Absolute Basos (auto) 0 Absolute Nucleated RBC 0 Nucleated RBC % 0 INR (Anticoag Therapy) 1.93 H Urine Color Yellow Urine Appearance Clear Urine pH 6.0 Ur Specific [place] 1.014 Urine Protein Negative Urine Ketones Negative Urine Blood Negative Urine Nitrate Negative Urine Bilirubin Negative Urine Urobilinogen Negative Ur Leukocyte Esterase Negative Urine Glucose Negative Assessment: POD 3 R SONYA with autografting of fem head Plan: DC to [facility] today WBAT RLE-PT/OT dressing changed F/U 10-[address] Choe
== END 2017-03-02 10:05 | DRG 470 ==
LOC: AA 08:08 → SSU 13:28
PROVIDERS: ADMIT Orthopaedic Surgery Adult Reconstructive Orthopaedic Surgery; ATTEND Orthopaedic Surgery Adult Reconstructive Orthopaedic Surgery
PROC: 0QU407Z Supplement Right Acetabulum with Autologous Tissue Substitute, Open Approach (ICD-10-PCS; 2017-02-27)
PROC: 0LQJ0ZZ Repair Right Hip Tendon, Open Approach (ICD-10-PCS; 2017-02-27)
PROC: 0SR904A Replacement of Right Hip Joint with Ceramic on Polyethylene Synthetic Substitute, Uncemented, Open Approach (ICD-10-PCS; principal; 2017-02-27 10:00)
DX: M16.11 Unilateral primary osteoarthritis, right hip (principal); I95.9 Hypotension, unspecified; J44.9 Chronic obstructive pulmonary disease, unspecified; M06.9 Rheumatoid arthritis, unspecified; Z99.81 Dependence on supplemental oxygen; K21.9 Gastro-esophageal reflux disease without esophagitis; G47.33 Obstructive sleep apnea (adult) (pediatric); M48.00 Spinal stenosis, site unspecified; I10 Essential (primary) hypertension; E03.9 Hypothyroidism, unspecified; G89.29 Other chronic pain; M54.9 Dorsalgia, unspecified; M54.2 Cervicalgia; R51 Headache; R50.9 Fever, unspecified; R11.0 Nausea; I49.3 Ventricular premature depolarization; T40.2X5A Adverse effect of other opioids, initial encounter; T39.1X5A Adverse effect of 4-Aminophenol derivatives, initial encounter; E66.9 Obesity, unspecified; G25.81 Restless legs syndrome; M85.88 Other specified disorders of bone density and structure, other site; S76.211A Strain of adductor muscle, fascia and tendon of right thigh, initial encounter; M85.651 Other cyst of bone, right thigh; Z86.73 Personal history of transient ischemic attack (TIA), and cerebral infarction without residual deficits; Z86.718 Personal history of other venous thrombosis and embolism; Z91.040 Latex allergy status; Z88.1 Allergy status to other antibiotic agents; Z88.8 Allergy status to other drugs, medicaments and biological substances; Z91.048 Other nonmedicinal substance allergy status; Z90.710 Acquired absence of both cervix and uterus; Z90.722 Acquired absence of ovaries, bilateral; Z98.1 Arthrodesis status; Z80.9 Family history of malignant neoplasm, unspecified; Z82.49 Family history of ischemic heart disease and other diseases of the circulatory system; Z82.3 Family history of stroke; Z82.5 Family history of asthma and other chronic lower respiratory diseases; Z84.2 Family history of other diseases of the genitourinary system; Z87.891 Personal history of nicotine dependence; Z68.32 Body mass index [BMI] 32.0-32.9, adult
CPT/HCPCS: 36415; 62323; 71010; 72170; 80048; 81003; 85025; 85610; 94640; 94760; A9270-GY; C1713; C1776; J1100; J1650; J1940; J2250; J2270; J2405; J2704; J8610

== ENCOUNTER 2017-03-08 11:54 | Emergency (ER) | payer MEDICARE ==
--- NOTE | 2017-03-08 12:32 | ED ---
Lower Extremity - HPI Summary HPI Summary: 71 female presents stating she was sent by ortho to have a ultrasound and bloodwork to rule out blood clot. Was confused if she was supposed to take the orders and do this in ER or outpatient. States she had a right hip replacement 1 week ago 02/26 and is having pain in her right knee and leg increasing over the past couple of days. Patient is currently on Lovenox to prevent blood clots. Is taking percocet for pain management which gives her relief when taken regularly. No other complaints at this time. Denies any obvious signs of trauma , numbness tingling and swelling. Last percocet was around 7 am this morning. Describes pain to be an ache. - History of Current Complaint Chief Complaint: EDExtremityLower Stated Complaint: RT LEG PAIN Time Seen by Provider: 03/08/17 12:04 Hx Obtained From: Patient Mechanism Of Injury: Unknown - recent surgery same leg Onset of Pain: Days Onset/Duration: Still Present Severity Initially: Moderate Severity Currently: Severe Pain Intensity: 10 Pain Scale Used: 0-10 Numeric Timing: Constant Location: Is Discrete @ - right LE knee and lower Character Of Pain: Aching, Throbbing, Stiffness Associated Signs And Symptoms: Positive: Negative Aggravating Factor(s): Standing, Movement, Weight Bearing Alleviating Factor(s): Rest, Elevation Able to Bear Weight: Yes - Allergies/Home Medications Allergies/Adverse Reactions: Allergies Allergy/AdvReac Type Severity Reaction Status Date / Time Amoxicillin [From Augmentin] Allergy Severe Difficulty Verified 02/15/17 14:38 Breathing Clavulanic Acid Allergy Severe Difficulty Verified 02/15/17 14:38 [From Augmentin] Breathing Erythromycin Allergy Intermediate Rash Verified 02/15/17 14:38 Latex Allergy Intermediate Rash Verified 02/15/17 14:38 Aminophylline Allergy Mild Rash Verified 02/26/17 12:08 Atorvastatin [From Lipitor] Allergy Stomach Verified 02/15/17 14:38 Cramps Pravastatin Allergy Stomach Verified 02/15/17 14:38 Cramps ADHESIVE TAPE Allergy Intermediate Blisters Uncoded 02/15/17 14:38 EPINEPHERINE Allergy Intermediate Rash Uncoded 02/15/17 14:38 MYCOLOG CREAM Allergy Intermediate Swelling Uncoded 02/15/17 14:38 ANTINFLAMMATORY Allergy Mild GI Upset Uncoded 02/15/17 14:38 PMH/Surg Hx/FS Hx/Imm Hx Endocrine/Hematology History: Reports: Hx Thyroid Disease - HYPO Denies: Hx Diabetes Cardiovascular History: Reports: Hx Hypertension, Hx Valvular Heart Disease - MVP, Other Cardiovascular Problems/Disorders - Hx of DVT following a muscle tear with hematoma 1993 Denies: Hx Pacemaker/ICD Respiratory History: Reports: Hx Asthma - CONTROLLED WITH INHALER, Hx Chronic Obstructive Pulmonary Disease (COPD), Hx Sleep Apnea - SLEEP STUDY 03/03/15 GI History: Reports: Hx Gastroesophageal Reflux Disease Denies: Hx Ulcer History: Reports: Hx Kidney Infection - HX OF Denies: Hx Dialysis Musculoskeletal History: Reports: Hx Arthritis - OSTEOARTHRITIS AND RA, Hx Rheumatoid Arthritis, Hx Bursitis - HISTORY IN SHOULDER, Hx Osteoporosis, Hx Tendonitis - IN ELBOW, Other Musculoskeletal History - degenrative disc disease Denies: Hx Back Problems Sensory History: Reports: Hx Cataracts - HAD SURGERY ON BOTH EYES Denies: Hx Contacts or Glasses, Hx Hearing Aid Opthamlomology History: Reports: Hx Cataracts - HAD SURGERY ON BOTH EYES Denies: Hx Contacts or Glasses Neurological History: Reports: Hx Headaches - lately, Hx Migraine, Other Neuro Impairments/Disorders - RHEUMATOID ARTHRITIS Denies: Hx Dementia, Hx Seizures Psychiatric History: Denies: Hx Panic Disorder - Cancer History Hx Chemotherapy: No Hx Radiation Therapy: No - Surgical History Surgery Procedure, Year, and Place: HYSTERECTOMY 1974. ABDOMINAL BOWEL OBSTRUCTION 1982. NEUROMA BILAT FEET. LUMBAR FUSION 1989. CERVICAL FUSION 1990. BILAT CTR- 3-4 YEARS AGO [facility]. HERNIA REPAIR [facility]. BILAT CATARACT [facility]. RT KNEE ACL REPAIR [facility]. R ROTATOR CUFF REPAIR 01/29 [facility]. IMPLANTED EVENT MONITOR 04/2013 Hx Anesthesia Reactions: No - Immunization History Immunizations Up to Date: Yes Infectious Disease History: No Infectious Disease History: Denies: Hx Clostridium Difficile, Hx Hepatitis, Hx Human Immunodeficiency Virus (HIV), Hx of Known/Suspected MRSA, Hx Shingles, Hx Tuberculosis, Traveled Outside the [place] in Last 30 Days - Family History Known Family History: Positive: Unknown - Social History Alcohol Use: Rare Substance Use Type: Reports: None Substance Use Comment - Amount & Last Used: Tramadol Smoking Status (MU): Former Smoker Type: Cigarettes Amount Used/How Often: 30 yrs Have You Smoked in the Last Year: No Review of Systems Constitutional: Negative Cardiovascular: Negative Respiratory: Negative Positive: Arthralgia, Myalgia - right lower extremity Skin: Negative Neurological: Negative All Other Systems Reviewed And Are Negative: Yes Physical Exam Triage Information Reviewed: Yes Vital Signs On Initial Exam: Initial Vitals Temp Pulse Resp BP Pulse Ox 97.3 F 77 20 127/63 96 03/08/17 11:57 03/08/17 11:57 03/08/17 11:57 03/08/17 11:57 03/08/17 11:57 Vital Signs Reviewed: Yes Appearance: Positive: Well-Appearing, Well-Nourished, Pain Distress - mild, especially with movement of right LE Skin: Positive: Warm, Skin Color Reflects Adequate Perfusion, Dry. Negative: Cold, Numb, Cyanosis @, Diaphoretic, Pale Head/Face: Positive: Normal Head/Face Inspection Eyes: Positive: Conjunctiva Clear ENT: Positive: Hearing grossly normal Neck: Positive: Supple, Nontender Respiratory/Lung Sounds: Positive: Clear to Auscultation, Breath Sounds Present. Negative: Rales, Rhonchi, Wheezes Cardiovascular: Positive: Normal, RRR, Pulses are Symmetrical in both Upper and Lower Extremities - 2+ pedal b/l. Negative: Murmur, Rub, Leg Edema Left, Leg Edema Right Bowel Sounds: Positive: Present Musculoskeletal: Positive: Normal, Strength/ROM Intact, Pain @ - with movement of right LE however is able. Negative: Joann Sign Left, Joann Sign Right, Edema Left, Edema Right Neurological: Positive: Normal, Sensory/Motor Intact - sensation grossly intact , Alert, Oriented to Person Place, Time, CN Intact II-III, NV Bundle Intact Distally, Abnormal Gait - due to pain and recent hip replacement Psychiatric: Positive: Affect/Mood Appropriate Diagnostics - Vital Signs Vital Signs Temp Pulse Resp BP Pulse Ox 03/08/17 12:10 97.3 F 77 20 127/63 96 03/08/17 11:57 97.3 F 77 20 127/63 96 - Laboratory Result Diagrams: 03/08/17 14:03 03/08/17 14:03 Lab Statement: Any lab studies that have been ordered have been reviewed, and results considered in the medical decision making process. - Ultrasound No standard instances Ultrasound Interpretation: No Acute Changes - no sign of DVT. negative examination Ultrasound Interpretation Completed By: Radiologist Lower Extremity Course/Dx - Course Course Of Treatment: given pain management while in ED as she was in severe pain and was due for her medications. ultrasound and blood work obtained. will be sent to ortho. no sign of DVT. normal labs. will be sent home to continue pain management and follow up with ortho. aware of worsening signs and symptoms to watch out for. RICE and remain ambulatory as much as possible - Diagnoses Differential Diagnosis/HQI/PQRI: Positive: DVT, Other - post surgical complicaton Provider Diagnoses: Leg pain, right, Status post right hip replacement Discharge - Discharge Plan Condition: Stable Disposition: HOME Patient Education Materials: Pain Management After Surgery (GEN) Referrals: Wanda Reinoso MD [Primary Care Provider] - Additional Instructions: Please follow up as directed with primary care doctor and orthopedics. Continue taking medications as directed for pain control. Recommend heat/ice as desired. Rest and elevation. Be sure to stay ambulatory as told before. If new symptoms develop or anything worsens please seek medical attention promptly.
--- NOTE | 2017-03-08 13:33 | RAD ---
INDICATION: Pain and swelling. Postoperative. COMPARISON: September 03, 2012 TECHNIQUE: Duplex interrogation of the Lowerextremity was performed. FINDINGS: Deep veins: The common femoral, great saphenous, profunda femoris, proximal, mid, and distal deep femoral, popliteal, posterior tibial, and peroneal veins are patent. There is normal compressibility, augmentation, and phasic flow. Superficial veins: There are no findings of superficial thrombophlebitis. Popliteal fossa:There is no evidence of a popliteal cyst. Soft tissues: There is dependent edema. IMPRESSION: NO EVIDENCE OF DEEP VENOUS THROMBOSIS
[2017-03-08] MEDS ORDERED: oxyCODONE/Acetamin 5/325 MG* TAB PO ONE (13:47)
[2017-03-08 14:18] LABS: Hematocrit 29 % (35-47); Hemoglobin 9.5 g/dl (12.0-16.0); Mean Corpuscular HGB Conc 33 g/dl (31-36); Mean Corpuscular Hemoglobin 34 pg (27-31); Mean Corpuscular Volume 102 fL (80-97); Mean Platelet Volume 8 um3 (7.4-10.4); Red Blood Count 2.84 10^6/ul (4.0-5.4); Red Cell Distribution Width 15 % (10.5-15); White Blood Count 8.4 10^3/ul (3.5-10.8)
[2017-03-08 14:29] LABS: Albumin 3.6 g/dL (3.2-5.2); BUN/Creatinine Ratio 23.1 (8-20); Calcium 9.4 mg/dL (8.6-10.3); EGFR African American 93.4 (>60); EGFR Non-African American 72.6 (>60); Globulin 3.5 g/dL (2-4); Potassium 4.1 mmol/L (3.5-5.0); Total Bilirubin 0.5 mg/dL (0.2-1.0); Total Protein 7.1 g/dL (6.4-8.9)
[2017-03-08 14:57] VITALS: BP 127/48
== END 2017-03-08 14:56 | disposition home or self-care (01) ==
LOC: ED 11:54
DX: M79.604 Pain in right leg (principal)
CPT/HCPCS: 36415; 80053; 85025; 85610; 85730; 99282; A9270-GY

== ENCOUNTER 2017-05-16 09:26 | Inpatient (IN) | payer MEDICARE ==
[2017-05-16] MEDS ORDERED: Albuterol/Ipratropium NEB.SOL* Albuterol 2.5 MG/Ipratropium 0.5 MG 3 ML INH ONE (09:41)
[2017-05-16] MEDS: NS 0.9% 1000 ML* 1,000 ML IV SCH ×2 (09:54→17:34)
--- NOTE | 2017-05-16 09:57 | RAD ---
INDICATION: COPD. Short of breath. COMPARISON: April 25, 2017 TECHNIQUE: An AP portable view obtained at 0955 hours is submitted. FINDINGS: Bones/Soft Tissues: There are no acute bony findings. Cardiomediastinal: The cardiomediastinal silhouette is normal. Lungs: The interstitium is mildly prominent. There is likely a component of mild interstitial congestion superimposed upon chronic lung findings. There is new mild linear change right upper lobe most consistent with atelectasis or conceivably a early infiltrate. The remaining lung vilchis are clear Pleura: There are no pleural effusions. Other: None IMPRESSION: SUSPECT MINOR INTERSTITIAL CONGESTION. MINIMAL AIRSPACE DISEASE RIGHT UPPER LOBE MAY REFLECT ATELECTASIS OR DEVELOPING INFILTRATE. Suggest follow-up.
[2017-05-16 10:49] LABS: Hematocrit 34 % (35-47); Hemoglobin 11.2 g/dl (12.0-16.0); Mean Corpuscular HGB Conc 33 g/dl (31-36); Mean Corpuscular Hemoglobin 33 pg (27-31); Mean Corpuscular Volume 102 fL (80-97); Mean Platelet Volume 8 um3 (7.4-10.4); Red Blood Count 3.35 10^6/ul (4.0-5.4); Red Cell Distribution Width 15 % (10.5-15); White Blood Count 10.5 10^3/ul (3.5-10.8)
[2017-05-16] MEDS ORDERED: oxyCODONE/Acetamin 5/325 MG* TAB PO ONE (11:20)
[2017-05-16 11:22] LABS: Urine Bilirubin Negative (Negative); Urine Glucose Negative (Negative); Urine Nitrite Negative (Negative)
[2017-05-16 11:23] LABS: ALT 13 U/L (7-52); AST 22 U/L (13-39); Albumin 3.9 g/dL (3.2-5.2); Alkaline Phosphatase 84 U/L (34-104); Anion Gap 8 mmol/L (2-11); BUN/Creatinine Ratio 20.5 (8-20); Blood Urea Nitrogen 26 mg/dL (6-24); C Reactive Protein 105.27 mg/L (< 5.00); CO2 Carbon Dioxide 24 mmol/L (22-32); Calcium 9.3 mg/dL (8.6-10.3); Chloride 103 mmol/L (101-111); EGFR African American 53.2 (>60); EGFR Non-African American 41.4 (>60); Globulin 3.5 g/dL (2-4); Glucose 102 mg/dL (70-100); Lipase < 10 U/L (11.0-82.0); Magnesium 2.1 mg/dL (1.9-2.7); Sodium 135 mmol/L (133-145); Total Protein 7.4 g/dL (6.4-8.9)
[2017-05-16 11:34] LABS: TSH (Thyroid Stimulating Horm) 14.35 mcIU/mL (0.34-5.60)
[2017-05-16] MEDS ORDERED: Iodixanol* (CONTRAST) 320 MG/ML 100 ML SDV IV ONE (12:35)
--- NOTE | 2017-05-16 13:25 | RAD ---
INDICATION: Chest pain. Short of breath. Evaluate for pulmonary embolus. COMPARISON: Chest x-ray May 08, 2017; CT chest November 15, 2016 TECHNIQUE: Axial source images were obtained from the thoracic inlet to the hemidiaphragms following administration of [address] angiographic technique was utilized. Coronal and sagittal reconstructed images were acquired. CHEST FINDINGS: Neck/thyroid: The visualized neck to include the thyroid appear normal. Chest wall: There are no acute abnormalities of the bony thorax or chest wall. There is no supraclavicular, infraclavicular, or axillary lymphadenopathy. Lungs : There are extensive emphysematous changes with patchy airspace disease with groundglass change.. There are both acute and chronic findings. Interstitial edema is suspected. There is a small, linear, right upper lobe opacity as also identified on the chest x-ray There are no endobronchial lesions. Cardiomediastinal structures: There is no CT evidence of acute pulmonary embolic disease. The heart is normal in size. There is no pericardial effusion. There is no evidence of aortic aneurysm or dissection. There is no mediastinal or hilar adenopathy. There are atherosclerotic changes. The esophagus appears normal. Pleura : There are no pleural-based masses or effusions. Other: None. IMPRESSION: CHRONIC LUNG FINDINGS WITH ADVANCED EMPHYSEMATOUS CHANGE. SUSPECT SUPERIMPOSED INTERSTITIAL EDEMA. GIVEN THESE DIFFUSE ABNORMALITIES AND GIVEN THE PRESENCE OF THE GROUNDGLASS CHANGES. DEVELOPING INFILTRATES ARE NOT EXCLUDED. THERE IS NO CT EVIDENCE OF ACUTE PULMONARY EMBOLIC DISEASE. SUGGEST A FOLLOW-UP CHEST X-RAY.
[2017-05-16] MEDS ORDERED: Levofloxacin 750 MG IVPREMIX(* 750 MG/150 ML BAG IVPB ONE (13:35)
[2017-05-16] MEDS ORDERED: methylPREDNISolone 125 MG* 2 ML VIAL IV ONE (13:37)
--- NOTE | 2017-05-16 13:38 | ED ---
Lukas Romero Angela, scribed for Maldonado Batista MD on 05/16/17 at 0951 . Shortness of Breath - HPI Summary HPI Summary: This pt is a 71 y/o female presenting to [facility] c/o shortness of breath since yesterday. Pt additionally c/o right lower back pain since her total right hip replacement in February 2017. Her pain radiates to her right abd. Pt denies calf pain, calf swelling, chest pain, cough. She had a nebulizer at home [employer]LYST with minimal relief. Pt endorses a headache located in the back. Pt has been on antibiotics for a sinus infection. Pt takes Percocet at night for her left shoulder pain and back pain. Pt is supposed to have an MRI for her left shoulder. Pt takes tramadol during the day with mild relief. At home, pt is on 2 L of NC of O2. PMHx: COPD, emphysema. - History of Current Complaint Chief Complaint: EDShortnessOfBreath Time Seen by Provider: 05/16/17 09:48 Hx Obtained From: Patient Onset/Duration: Lasting Days - 1 Timing: Constant Aggrevating Factors: Movement, Other - exertion - Allergy/Home Medications Allergies/Adverse Reactions: Allergies Allergy/AdvReac Type Severity Reaction Status Date / Time Amoxicillin [From Augmentin] Allergy Severe Difficulty Verified 02/15/17 14:38 Breathing Clavulanic Acid Allergy Severe Difficulty Verified 02/15/17 14:38 [From Augmentin] Breathing Erythromycin Allergy Intermediate Rash Verified 02/15/17 14:38 Latex Allergy Intermediate Rash Verified 02/15/17 14:38 Aminophylline Allergy Mild Rash Verified 02/26/17 12:08 Atorvastatin [From Lipitor] Allergy Stomach Verified 02/15/17 14:38 Cramps Pravastatin Allergy Stomach Verified 02/15/17 14:38 Cramps ADHESIVE TAPE Allergy Intermediate Blisters Uncoded 02/15/17 14:38 EPINEPHERINE Allergy Intermediate Rash Uncoded 02/15/17 14:38 MYCOLOG CREAM Allergy Intermediate Swelling Uncoded 02/15/17 14:38 ANTINFLAMMATORY Allergy Mild GI Upset Uncoded 02/15/17 14:38 PMH/Surg Hx/FS Hx/Imm Hx Endocrine/Hematology History: Reports: Hx Thyroid Disease - HYPO Denies: Hx Diabetes Cardiovascular History: Reports: Hx Hypertension, Hx Valvular Heart Disease - MVP, Other Cardiovascular Problems/Disorders - Hx of DVT following a muscle tear with hematoma 1993 Denies: Hx Pacemaker/ICD Respiratory History: Reports: Hx Asthma - CONTROLLED WITH INHALER, Hx Chronic Obstructive Pulmonary Disease (COPD), Hx Sleep Apnea - SLEEP STUDY 03/03/15 GI History: Reports: Hx Gastroesophageal Reflux Disease Denies: Hx Ulcer History: Reports: Hx Kidney Infection - HX OF Denies: Hx Dialysis Musculoskeletal History: Reports: Hx Arthritis - OSTEOARTHRITIS AND RA, Hx Rheumatoid Arthritis, Hx Bursitis - HISTORY IN SHOULDER, Hx Osteoporosis, Hx Tendonitis - IN ELBOW, Other Musculoskeletal History - degenrative disc disease Denies: Hx Back Problems Sensory History: Reports: Hx Cataracts - HAD SURGERY ON BOTH EYES Denies: Hx Contacts or Glasses, Hx Hearing Aid Opthamlomology History: Reports: Hx Cataracts - HAD SURGERY ON BOTH EYES Denies: Hx Contacts or Glasses Neurological History: Reports: Hx Headaches - lately, Hx Migraine, Other Neuro Impairments/Disorders - RHEUMATOID ARTHRITIS Denies: Hx Dementia, Hx Seizures Psychiatric History: Denies: Hx Panic Disorder - Cancer History Hx Chemotherapy: No Hx Radiation Therapy: No - Surgical History Surgery Procedure, Year, and Place: HYSTERECTOMY 1974. ABDOMINAL BOWEL OBSTRUCTION 1982. NEUROMA BILAT FEET. LUMBAR FUSION 1989. CERVICAL FUSION 1990. BILAT CTR- 3-4 YEARS AGO [facility]. HERNIA REPAIR [facility]. BILAT CATARACT [facility]. RT KNEE ACL REPAIR [facility]. R ROTATOR CUFF REPAIR 01/29 [facility]. IMPLANTED EVENT MONITOR 04/2013 Hx Anesthesia Reactions: No Infectious Disease History: No Infectious Disease History: Denies: Hx Clostridium Difficile, Hx Hepatitis, Hx Human Immunodeficiency Virus (HIV), Hx of Known/Suspected MRSA, Hx Shingles, Hx Tuberculosis, Traveled Outside the [place] in Last 30 Days - Family History Known Family History: Positive: Cardiac Disease - father, Renal Disease - father , Respiratory Disease - Father: COPD. , Other - Mother: stroke - Social History Alcohol Use: Rare Substance Use Type: Reports: None Substance Use Comment - Amount & Last Used: Tramadol Smoking Status (MU): Former Smoker Type: Cigarettes Amount Used/How Often: 30 yrs Have You Smoked in the Last Year: No Review of Systems Negative: Fever, Chills Eyes: Negative Negative: Chest Pain Positive: Shortness Of Breath Positive: Abdominal Pain Genitourinary: Negative Positive: Other - back pain. Negative: Edema Skin: Negative Negative: Weakness, Numbness All Other Systems Reviewed And Are Negative: Yes Physical Exam - Summary Physical Exam Summary: General: well-appearing, mild to moderate respiratory distress Skin: warm, color reflects adequate perfusion, dry Head: normal Eyes: EOMI, MARIZA ENT: normal Neck: supple, nontender Respiratory: There are crackles at the bases. Breath sounds present Cardiovascular: RRR Abdomen: soft, nontender Bowel: present Musculoskeletal: strength/ROM intact. There is tenderness in the right low back. There is no LE edema. Neurological: normal, sensory/motor intact, A&O x3 Psychological: affect/mood appropriate Triage Information Reviewed: Yes Vital Signs On Initial Exam: Initial Vitals Temp Pulse Resp BP Pulse Ox 97.0 F 100 24 150/68 97 05/16/17 09:31 05/16/17 09:31 05/16/17 09:31 05/16/17 09:31 05/16/17 09:31 Vital Signs Reviewed: Yes Diagnostics - Vital Signs Vital Signs Temp Pulse Resp BP Pulse Ox 05/16/17 09:31 97.0 F 100 24 150/68 97 - Laboratory Lab Results: Lab Results 05/16/17 05/16/17 05/16/17 Range/Units 09:50 09:50 09:50 WBC (3.5-10.8) 10^3/ul RBC (4.0-5.4) 10^6/ul Hgb (12.0-16.0) g/dl Hct (35-47) % MCV (80-97) fL MCH (27-31) pg MCHC (31-36) g/dl RDW (10.5-15) % Plt Count (150-450) 10^3/ul MPV (7.4-10.4) um3 Neut % (Auto) (38-83) % Lymph % (Auto) (25-47) % [place] % (Auto) (1-9) % Eos % (Auto) (0-6) % Baso % (Auto) (0-2) % Absolute Neuts (auto) (1.5-7.7) 10^3/ul Absolute Lymphs (auto) (1.0-4.8) 10^3/ul Absolute Monos (auto) (0-0.8) 10^3/ul Absolute Eos (auto) (0-0.6) 10^3/ul Absolute Basos (auto) (0-0.2) 10^3/ul Absolute Nucleated RBC 10^3/ul Nucleated RBC % INR (Anticoag Therapy) 0.90 (0.89-1.11) APTT 25.2 L (26.0-36.3) seconds D-Dimer, Quantitative > 1050 H (Less Than 230) ng/mL Sodium 135 (133-145) mmol/L Potassium 4.0 (3.5-5.0) mmol/L Chloride 103 (101-111) mmol/L Carbon Dioxide 24 (22-32) mmol/L Anion Gap 8 (2-11) mmol/L BUN 26 H (6-24) mg/dL Creatinine 1.27 H (0.51-0.95) mg/dL Est GFR ( Amer) 53.2 (>60) Est GFR (Non-Af Amer) 41.4 (>60) BUN/Creatinine Ratio 20.5 H (8-20) Glucose 102 H (70-100) mg/dL Lactic Acid (0.5-2.0) mmol/L Calcium 9.3 (8.6-10.3) mg/dL Magnesium 2.1 (1.9-2.7) mg/dL Total Bilirubin 0.40 (0.2-1.0) mg/dL AST 22 (13-39) U/L ALT 13 (7-52) U/L Alkaline Phosphatase 84 (34-104) U/L Troponin I 0.00 (<0.04) ng/mL C-Reactive Protein 105.27 H (< 5.00) mg/L B-Natriuretic Peptide 36 ( - 100) pg/mL Total Protein 7.4 (6.4-8.9) g/dL Albumin 3.9 (3.2-5.2) g/dL Globulin 3.5 (2-4) g/dL Albumin/Globulin Ratio 1.1 (1-3) Lipase < 10 L (11.0-82.0) U/L TSH 14.35 H (0.34-5.60) mcIU/mL Urine Color Urine Appearance Urine pH (5-9) Ur Specific Robinson (1.010-1.030) Urine Protein (Negative) Urine Ketones (Negative) Urine Blood (Negative) Urine Nitrate (Negative) Urine Bilirubin (Negative) Urine Urobilinogen (Negative) Ur Leukocyte Esterase (Negative) Urine Glucose (Negative) 05/16/17 05/16/17 05/16/17 Range/Units 09:50 09:50 11:05 WBC 10.5 (3.5-10.8) 10^3/ul RBC 3.35 L (4.0-5.4) 10^6/ul Hgb 11.2 L (12.0-16.0) g/dl Hct 34 L (35-47) % MCV 102 H (80-97) fL MCH 33 H (27-31) pg MCHC 33 (31-36) g/dl RDW 15 (10.5-15) % Plt Count 206 (150-450) 10^3/ul MPV 8 (7.4-10.4) um3 Neut % (Auto) 74.0 (38-83) % Lymph % (Auto) 11.6 L (25-47) % [place] % (Auto) 8.5 (1-9) % Eos % (Auto) 5.3 (0-6) % Baso % (Auto) 0.6 (0-2) % Absolute Neuts (auto) 7.8 H (1.5-7.7) 10^3/ul Absolute Lymphs (auto) 1.2 (1.0-4.8) 10^3/ul Absolute Monos (auto) 0.9 H (0-0.8) 10^3/ul Absolute Eos (auto) 0.6 (0-0.6) 10^3/ul Absolute Basos (auto) 0.1 (0-0.2) 10^3/ul Absolute Nucleated RBC 0.01 10^3/ul Nucleated RBC % 0.1 INR (Anticoag Therapy) (0.89-1.11) APTT (26.0-36.3) seconds D-Dimer, Quantitative (Less Than 230) ng/mL Sodium (133-145) mmol/L Potassium (3.5-5.0) mmol/L Chloride (101-111) mmol/L Carbon Dioxide (22-32) mmol/L Anion Gap (2-11) mmol/L BUN (6-24) mg/dL Creatinine (0.51-0.95) mg/dL Est GFR ( Amer) (>60) Est GFR (Non-Af Amer) (>60) BUN/Creatinine Ratio (8-20) Glucose (70-100) mg/dL Lactic Acid 1.7 (0.5-2.0) mmol/L Calcium (8.6-10.3) mg/dL Magnesium (1.9-2.7) mg/dL Total Bilirubin (0.2-1.0) mg/dL AST (13-39) U/L ALT (7-52) U/L Alkaline Phosphatase (34-104) U/L Troponin I (<0.04) ng/mL C-Reactive Protein (< 5.00) mg/L B-Natriuretic Peptide ( - 100) pg/mL Total Protein (6.4-8.9) g/dL Albumin (3.2-5.2) g/dL Globulin (2-4) g/dL Albumin/Globulin Ratio (1-3) Lipase (11.0-82.0) U/L TSH (0.34-5.60) mcIU/mL Urine Color Yellow Urine Appearance Cloudy Urine pH 6.0 (5-9) Ur Specific Robinson 1.008 L (1.010-1.030) Urine Protein Negative (Negative) Urine Ketones Negative (Negative) Urine Blood Negative (Negative) Urine Nitrate Negative (Negative) Urine Bilirubin Negative (Negative) Urine Urobilinogen Negative (Negative) Ur Leukocyte Esterase Negative (Negative) Urine Glucose Negative (Negative) Result Diagrams: 05/16/17 09:50 05/16/17 09:50 Lab Statement: Any lab studies that have been ordered have been reviewed, and results considered in the medical decision making process. - Radiology Chest XR Xray Interpretation: Positive (See Comments) - IMPRESSION: Suspect minor interstitial congestion. Minimal airspace disease right upper lobe may reflect atelectasis or developing infiltrate. Suggest follow-up. ED physician has reviewed this radiology report and agrees. Radiology Interpretation Completed By: Radiologist - CT CTA Chest CT Interpretation: Positive (See Comments) - IMPRESSION: CHRONIC LUNG FINDINGS WITH ADVANCED EMPHYSEMATOUS CHANGE. SUSPECT SUPERIMPOSED INTERSTITIAL EDEMA. GIVEN THESE DIFFUSE ABNORMALITIES AND GIVEN THE PRESENCE OF THE GROUNDGLASS CHANGES. DEVELOPING INFILTRATES ARE NOT EXCLUDED. THERE IS NO CT EVIDENCE OF ACUTE PULMONARY EMBOLIC DISEASE. SUGGEST A FOLLOW-UP CHEST X-RAY. ED physician has reviewed this radiology report and agrees. CT Interpretation Completed By: Radiologist - EKG 0983 Cardiac Rate: NL - 89 bpm EKG Rhythm: Sinus Rhythm ST Segment: Normal Ectopy: None Course/Dx - Course Course Of Treatment: Medications reviewed. BP noted and advised to follow up with PCP. ADMIT HOSPITALIST. NO CRITICAL CARE TIME. - Diagnoses Provider Diagnoses: COPD (chronic obstructive pulmonary disease), Pneumonia, Dyspnea Discharge - Discharge Plan Condition: Stable Disposition: ADMITTED TO [facility] Referrals: Wanda Reinoso MD [Primary Care Provider] - The documentation as recorded by the Lukas morgan Angela accurately reflects the service I personally performed and the decisions made by , Maldonado Batista MD.
[2017-05-16] MEDS ORDERED: Albuterol/Ipratropium NEB.SOL* Albuterol 2.5 MG/Ipratropium 0.5 MG 3 ML INH PRN (14:33)
[2017-05-16] MEDS ORDERED: Cyclobenzaprine TAB* 10 MG PO PRN (14:37)
[2017-05-16] MEDS: Tiotropium CAP.INH* CAP.INH/18 MCG (USE ORDER SET !) INH SCH (14:40)
[2017-05-16] MEDS ORDERED: Enoxaparin(*) 40 MG/0.4 ML SYR SUBCUT SCH ×2 (15:00→15:12)
[2017-05-16] MEDS ORDERED: Spiriva Inhaler DEVICE* 1 EACH DEVICE SCH (15:00)
[2017-05-16] MEDS ORDERED: Azithromycin IV(*) 250 MG in NS 0.9% 250 ML* 250 ML IVPB SCH (16:00)
[2017-05-16] MEDS: oxyCODONE/Acetamin 5/325 MG* TAB PO PRN (16:21)
--- NOTE | 2017-05-16 16:36 | HP ---
CC: Dr. Wanda Reinoso* ADMISSION HISTORY AND PHYSICAL: DATE OF ADMISSION: 05/16/17 PRIMARY CARE PROVIDER: Dr. Wanda Reinoso. ADMITTING PROVIDER: UZAIR Poe. SUPERVISING PHYSICIAN: Dr. Blayne Marsh* (dictated by UZAIR Poe). CHIEF COMPLAINT: Shortness of breath. HISTORY OF PRESENT ILLNESS: This is a 71-year-old female with a history of COPD and associated hypoxic respiratory failure requiring 2 L of O2 at baseline as well as obstructive sleep apnea, compliant with CPAP, rheumatoid arthritis, prior CVA without significant residual deficit, GERD, hypertension, prior provoked DVT, and hypothyroidism, who presented to the emergency department with complaints of shortness of breath. The patient has noted increased oxygen needs over the last 3 days or so. She states though that she has been having some upper respiratory symptoms for at least the last month since she has been on 2 different antibiotics as well as a steroid taper, the most recent antibiotic was doxycycline and her last dose is scheduled for tomorrow. She does recall some mild improvement when she was on the prednisone, but otherwise does not recall significant improvement while on antibiotics. She has been using her nebulizer machine at home, for which she has albuterol prescribed, but noted little improvement in her shortness of breath with that. She has had an occasional cough, but nothing of significance and reports that she has frequent chills. Of note, the patient was hospitalized in February of this year for a total joint replacement. She stopped her methotrexate surrounding the surgery and has not resumed it because of her recent respiratory infections. PAST MEDICAL HISTORY: 1. COPD with chronic respiratory failure requiring 2 L continuously. 2. Obstructive sleep apnea, compliant with CPAP. 3. Rheumatoid arthritis. 4. History of CVA without significant residual deficit. 5. GERD. 6. Hypertension. 7. History of DVT, which was provoked. 8. Hypothyroidism. PAST SURGICAL HISTORY: 1. Hysterectomy. 2. Bilateral oophorectomy. 3. Incisional hernia repair. 4. Small bowel obstruction. 5. Back surgery. 6. Cervical spine fusion. 7. Bunionectomy and hammertoe correction. 8. Right knee surgery. 9. Right rotator cuff repair. 10. Implanted event monitor. 11. Right total hip arthroplasty. HOME MEDICATIONS: 1. Nebulized albuterol inhaled 4 times daily as needed for shortness of breath. 2. Aspirin 81 mg p.o. daily. 3. Zyrtec 10 mg p.o. daily. 4. Flexeril 5 mg p.o. q.8 hours as needed for pain or spasm. 5. Docusate 100 mg p.o. twice daily. 6. Voltaren gel applied topically daily as needed. 7. Estradiol patch 0.05 mg applied topically twice weekly. 8. Fluticasone nasal spray, 2 sprays in both nostrils daily. 9. Advair 500/50 one puff inhaled twice daily. 10. Gabapentin 600 mg p.o. 4 times daily. 11. Plaquenil 400 mg p.o. twice daily. 12. Iron with vitamin C 1 tablet p.o. twice daily. 13. Levothyroxine 100 mcg p.o. daily. 14. Lisinopril 5 mg p.o. daily. 15. Methotrexate 15 mg p.o. weekly. This has been held for at least a couple of months. 16. Omeprazole 20 mg p.o. twice daily. 17. Mirapex 0.125 mg p.o. at bedtime. 18. Celebrex 200 mg p.o. twice daily. 19. Oxycodone/acetaminophen 5/325 one tablet p.o. twice daily as needed. 20. Tramadol 50 to 100 mg p.o. q.6 hours as needed for pain. SOCIAL HISTORY: The patient lives at home with her sister. She quit smoking in 2004. She has a long smoking history prior to that, unsure of the exact pack year history. She does not consume alcohol on a regular basis. REVIEW OF SYSTEMS: As noted above in HPI. PHYSICAL EXAMINATION GENERAL: This is a pleasant elderly female, in no acute distress, accompanied by her 2 daughters. VITAL SIGNS: Initial vitals, temperature 97 degrees Fahrenheit, pulse 100 beats per minute, respiratory rate 24 per minute, oxygen saturation 97% on 2 L, blood pressure 150/68 mmHg. HEENT: Head is normocephalic, atraumatic. Mucous membranes are pink and moist. RESPIRATORY: The patient has a few crackles appreciated in posterior lobes. No significant rhonchi or wheezing. CARDIOVASCULAR: Heart has a regular rate and rhythm without murmurs, rubs, or gallops. ABDOMEN: Abdomen is soft and nontender to palpation. EXTREMITIES: No edema appreciated. LABORATORY EVALUATION: CBC shows white blood cell count of 10,500, hemoglobin of 11.2 g/dL, a platelet count of 206,000. D-dimer is greater than 1050. Comprehensive metabolic panel shows a sodium of 135 mmol/L, potassium 4.0, serum bicarb of 24, BUN of 26, creatinine 1.27. Random glucose of 102, lactic acid 1.7. Current transaminases and total bilirubin within normal limits. Troponin is negative. CRP elevated at 105. BNP is 36. TSH of 14.35. Urinalysis is unremarkable. IMAGING: Chest x-ray shows minor interstitial congestion, perhaps minimal airspace disease in the right upper lobe which may reflect atelectasis or developing infiltrate. CTA of the chest shows no PE. There are diffuse emphysematous changes and some ground glass opacities, which may represent involving infiltrate versus mild pulmonary edema. ASSESSMENT AND PLAN: This is a 71-year-old female with a history of chronic respiratory failure secondary to chronic obstructive pulmonary disease as well as obstructive sleep apnea, rheumatoid arthritis, prior cerebrovascular accident , gastroesophageal reflux disease, hypertension, prior provoked deep venous thrombosis, and hypothyroidism, who presents with complaints of shortness of breath and increased oxygen needs. The patient is being admitted for chronic obstructive pulmonary disease exacerbation and pneumonia. 1. Chronic obstructive pulmonary disease exacerbation with pneumonia - the patient does not have a significant wheeze or rhonchorous lung sounds on exam, but she did recently receive DuoNeb, which she did receive some relief from. Chest x-ray suggests a possible infiltrate. Her CRP is significantly elevated and her history would be consistent with an infectious etiology. Although her imaging could be consistent with pulmonary edema picture, her BNP is normal and clinically she appears, if anything, a bit dry. We will plan to initiate corticosteroids and antibiotics for community-acquired pathogens. She will continue her usual inhaled medications and add DuoNeb. 2. Acute kidney injury - the patient has slightly elevated BUN and creatinine from her baseline. This is due to some mild hypovolemia. 3. Hypothyroidism with significantly elevated TSH. Her TSH is 14 at the time of admission. She has been recently ill, but her last TSH measured in February was 6.69. She denies any recent changes to her dose and states that she has been compliant with taking her levothyroxine. We will increase her levothyroxine and this should be followed up in 4 to 6 weeks. 4. Rheumatoid arthritis - the patient has stopped her methotrexate a couple of months ago. 5. Obstructive sleep apnea - we plan to continue her CPAP during her hospital stay. 6. History of cerebrovascular accident without significant residual deficit. 7. Gastroesophageal reflux disease. 8. Hypertension - the patient is normotensive in the emergency department and will be continued on her home antihypertensive medications. 9. Code status - the patient is full code. 10. Healthcare proxy are her daughters with the primary being Cary Harper and secondary being Anai Pichardo. 11. DVT prophylaxis - the patient will be started on subcu Lovenox. DISPOSITION: The patient is being admitted to inpatient status for COPD exacerbation and pneumonia with expected length of stay to be greater than 2 midnights. UZAIR POE [id number]/CPS #: [id number] DONALD
[2017-05-16] MEDS: cefTRIAXone VIAL(*) 1,000 MG in NS 0.9% 50 ML* 50 ML IVPB SCH (17:35)
[2017-05-16] MEDS: Gabapentin CAP(*) 300 MG PO SCH ×2 (17:43→20:55)
[2017-05-16] MEDS: traMADol TAB* 50 MG PO PRN (17:43)
[2017-05-16] MEDS: Cetirizine* 10 MG TAB PO SCH (17:45)
[2017-05-16] MEDS: methylPREDNISolone SOD 40 MG* 1 ML VIAL IV SCH (17:46)
[2017-05-16] MEDS: DOXYcycline IV* 100 MG in NS 0.9% 250 ML* 250 ML IVPB SCH (20:25)
[2017-05-16] MEDS: PTO: Fluticasone-Salmeterol 500-50* DISKUS INH SCH (20:44)
[2017-05-16] MEDS: Docusate CAP* 100 MG PO SCH (20:55)
[2017-05-16] MEDS: Hydroxychloroquine TAB* 200 MG PO SCH (20:55)
[2017-05-16] MEDS: Omeprazole CAP* 20 MG PO SCH (20:55)
[2017-05-16] MEDS ORDERED: Pramipexole TAB* 0.125 MG PO SCH (21:00)
[2017-05-16] MEDS ORDERED: Mometasone/Formoter 200/5 MDI INH SCH (21:00)
[2017-05-17] MEDS: oxyCODONE/Acetamin 5/325 MG* TAB PO PRN (00:32)
[2017-05-17] MEDS ORDERED: CMCS:Melatonin (NF) 3 MG TAB PO PRN (01:23)
[2017-05-17] MEDS: methylPREDNISolone SOD 40 MG* 1 ML VIAL IV SCH ×2 (02:18→14:23)
[2017-05-17] MEDS: traMADol TAB* 50 MG PO PRN ×2 (02:19→08:30)
[2017-05-17] MEDS: NS 0.9% 1000 ML* 1,000 ML IV SCH (04:06)
[2017-05-17] MEDS: Levothyroxine TAB* 125 MCG TAB PO SCH (05:16)
[2017-05-17 06:09] LABS: Hematocrit 30 % (35-47); Hemoglobin 9.8 g/dl (12.0-16.0); Mean Corpuscular HGB Conc 33 g/dl (31-36); Mean Corpuscular Hemoglobin 33 pg (27-31); Mean Corpuscular Volume 101 fL (80-97); Mean Platelet Volume 8 um3 (7.4-10.4); Red Blood Count 2.94 10^6/ul (4.0-5.4); Red Cell Distribution Width 15 % (10.5-15)
[2017-05-17 06:32] LABS: Calcium 8.4 mg/dL (8.6-10.3); EGFR African American 84.5 (>60); EGFR Non-African American 65.7 (>60); Potassium 4.2 mmol/L (3.5-5.0)
[2017-05-17] MEDS: Tiotropium CAP.INH* CAP.INH/18 MCG (USE ORDER SET !) INH SCH (08:13)
[2017-05-17] MEDS: PTO: Fluticasone-Salmeterol 500-50* DISKUS INH SCH ×2 (08:13→20:14)
[2017-05-17] MEDS: DOXYcycline IV* 100 MG in NS 0.9% 250 ML* 250 ML IVPB SCH ×2 (08:25→20:14)
[2017-05-17] MEDS: Omeprazole CAP* 20 MG PO SCH ×2 (08:28→20:15)
[2017-05-17] MEDS: Aspirin EC Low Dose* 81 MG TAB.EC PO SCH (08:28)
[2017-05-17] MEDS: Gabapentin CAP(*) 300 MG PO SCH ×4 (08:29→20:11)
[2017-05-17] MEDS: Hydroxychloroquine TAB* 200 MG PO SCH ×2 (08:29→20:13)
[2017-05-17] MEDS: Lisinopril TAB* 5 MG PO SCH (08:29)
[2017-05-17] MEDS: Docusate CAP* 100 MG PO SCH ×2 (08:30→20:13)
[2017-05-17] MEDS: Acetaminophen TAB* 325 MG PO PRN ×3 (08:31→23:12)
[2017-05-17] MEDS ORDERED: Influenza VAC *QUAD* 2017-18* 0.5 ML SYRINGE IM ONE (09:00)
--- NOTE | 2017-05-17 14:07 | PN ---
Subjective Date of Service: 05/17/17 Interval History: Patient seen and examined at bedside. Denies fever, chills, chest discomfort, N/ V/D. Pt states that her shortness of breath is improving, but she continues to have shortness of breath. Pt uses O2 @ 2L at home and is requiring 3L via NC at this time. Pt states that her left shoulder is painful and she has been following with Dr. Nicole with orthopedics for it, she will need to have an MRI as an outpatient. Family History: Unchanged from Admission Social History: Unchanged from Admission Past Medical History: Unchanged from Admission Objective Active Medications: Acetaminophen (Tylenol Tab*) 650 mg PO Q4H PRN Reason: FEVER/PAIN Albuterol/Ipratropium (Duoneb (Albuterol 2.5 Mg/Ipratropium 0.5 Mg)) 1 neb INH [id number] AWAKE PRN Reason: sob/wheexing Aspirin (Aspirin Ec Low Dose*) 81 mg PO DAILY [facility] Cetirizine HCl (Zyrtec*) 10 mg PO QPM [facility] Cyclobenzaprine HCl (Flexeril Tab*) 5 mg PO Q8HR PRN Reason: SPASMS - MUSCLE Device (Tiotropium Inhaler Device*) 1 each .SEE ORDER .USE w/ SPIRIVA CAPS [facility] Docusate Sodium (Colace Cap*) 100 mg PO BID [facility] Enoxaparin Sodium (Lovenox(*)) 30 mg SUBCUT Q24H [facility] Gabapentin (Neurontin Cap(*)) 600 mg PO QID [facility] Hydroxychloroquine Sulfate (Plaquenil Tab*) 400 mg PO BID [facility] Sodium Chloride (Ns 0.9% 1000 Ml*) 1,000 mls @ 150 mls/hr IV PER RATE [facility] Ceftriaxone Sodium 1,000 mg/ (Sodium Chloride) 50 mls @ 200 mls/hr IVPB Q24H [facility] Doxycycline Hyclate 100 mg/ (Sodium Chloride) 250 mls @ 250 mls/hr IVPB Q12H [facility] Levothyroxine Sodium (Synthroid Tab*) 125 mcg PO 0600 [facility] Lisinopril (Prinivil Tab*) 5 mg PO QAM [facility] Melatonin (Melatonin (Nf)) 3 mg PO BEDTIME PRN Reason: SLEEP Methylprednisolone Sodium Succinate (Solu-Medrol 40 Mg) 60 mg IV Q12H [facility] Omeprazole (Prilosec Cap*) 20 mg PO BID [facility] Oxycodone/Acetaminophen (Percocet 5/325 Tab*) 1 tab PO TID PRN Reason: PAIN Pramipexole Dihydrochloride (Mirapex Tab*) 0.125 mg PO BEDTIME [facility] Fluticasone/Salmeterol (Advair Diskus 500-50*) 1 puff INH BID [facility] Tiotropium [place] (Spiriva Cap.Inh*) 1 cap INH DAILY [facility] Tramadol HCl (Ultram*) 50 mg PO Q6HR PRN Reason: PAIN - ARTHRITIS Vital Signs 05/16/17 05/16/17 05/16/17 14:36 15:55 16:05 Temperature 98.1 F 98.1 F Pulse Rate 87 87 Respiratory 20 18 18 Rate Blood Pressure 143/65 143/65 (mmHg) O2 Sat by Pulse 96 96 Oximetry 05/16/17 05/16/17 05/16/17 19:39 19:43 19:53 Temperature 97.9 F Pulse Rate 84 Respiratory 20 18 20 Rate Blood Pressure 125/66 (mmHg) O2 Sat by Pulse 98 Oximetry 05/16/17 05/16/17 05/16/17 20:55 22:55 23:43 Temperature 98.5 F Pulse Rate 81 Respiratory 18 19 20 Rate Blood Pressure 145/54 (mmHg) O2 Sat by Pulse 95 Oximetry 05/17/17 05/17/17 05/17/17 02:53 04:07 07:55 Temperature 97.9 F 97.7 F Pulse Rate 89 88 Respiratory 20 18 17 Rate Blood Pressure 132/62 159/74 (mmHg) O2 Sat by Pulse 96 94 Oximetry 05/17/17 05/17/17 10:29 11:10 Temperature 97.6 F Pulse Rate 86 Respiratory 18 16 Rate Blood Pressure 138/56 (mmHg) O2 Sat by Pulse 96 Oximetry Oxygen Devices in Use Now: None Appearance: NAD, sitting up in bed Ears/Nose/Mouth/Throat: Mucous Membranes Moist Respiratory: Symmetrical Chest Expansion and Respiratory Effort, Clear to Auscultation - , diminished Cardiovascular: NL Sounds; No Murmurs; No JVD, RRR Extremities: No Edema Skin: No Rash or Ulcers Neurological: Alert and Oriented x 3, NL Muscle Strength and Tone Lines/Tubes/Other Access: Clean, Dry and Intact Peripheral IV - site benign Nutrition: Taking PO's Result Diagrams: 05/17/17 05:16 05/17/17 05:16 Additional Lab and Data: Assess/Plan/Problems-Billing Assessment: Ms. Daigle is a 71 yo female with PMH significant of chronic respiratory failure secondary to COPD, YOLA, RA, CVA, GERD, HTN, hx DVT, and hypothyroidism who presented to the emergency room with shortness of breath and increased oxygen needs. - Patient Problems (1) COPD exacerbation Code(s): J44.1 - CHRONIC OBSTRUCTIVE PULMONARY DISEASE W (ACUTE) EXACERBATION SNOMED Code(s): 906222605 Comment: - with chronic hypoxic respiratory failure - Increased o2 needs, improving, but not yet to baseline - Continue Inhalers - Continue ABX and steroids (2) PNA (pneumonia) Code(s): J18.9 - PNEUMONIA, UNSPECIFIED ORGANISM SNOMED Code(s): 167443032 Comment: - Chest xray suggests possible infiltrate - Afebrile and no leukocytosis - CRP elevated - Continue doxycycline and ceftriaxone (3) MYESHA (acute kidney injury) Code(s): N17.9 - ACUTE KIDNEY FAILURE, UNSPECIFIED SNOMED Code(s): 62182469 Comment: - Suspect secondary to mild hypovalemia - Resolved with IVFs (4) Hypothyroidism Code(s): E03.9 - HYPOTHYROIDISM, UNSPECIFIED SNOMED Code(s): 71519631 Comment: - TSH 14 - Continue levothyroxine (increased dose) - Recheck TSH in 4-6 weeks (5) History of CVA (cerebrovascular accident) Code(s): Z86.73 - PRSNL HX OF TIA (TIA), AND CEREB INFRC W/O RESID DEFICITS SNOMED Code(s): 224688475 Comment: - Continue ASA (6) GERD (gastroesophageal reflux disease) Code(s): K21.9 - GASTRO-ESOPHAGEAL REFLUX DISEASE WITHOUT ESOPHAGITIS SNOMED Code(s): 573628483 Comment: - Continue omeprazole (7) Hypertension Code(s): I10 - ESSENTIAL (PRIMARY) HYPERTENSION SNOMED Code(s): 68506217 Comment: - Mild hypertension, SBP 130-150's - Continue lisinopril (8) YOLA (obstructive sleep apnea) Code(s): G47.33 - OBSTRUCTIVE SLEEP APNEA (ADULT) (PEDIATRIC) SNOMED Code(s): 00863830 Comment: - Continue home cpap. (9) Rheumatoid arthritis Code(s): M06.9 - RHEUMATOID ARTHRITIS, UNSPECIFIED SNOMED Code(s): 65620843 Comment: - Continue plaquenil. (10) DVT prophylaxis Code(s): BBW6811 - SNOMED Code(s): 060343498 Comment: - Lovenox (11) Full code status Code(s): Z78.9 - OTHER SPECIFIED HEALTH STATUS SNOMED Code(s): 248513307 Status and Disposition: Inpatient. Discharge to home when medically stable.
[2017-05-17] MEDS: Enoxaparin(*) 30 MG/0.3 ML SYR SUBCUT SCH (14:23)
[2017-05-17] MEDS: cefTRIAXone VIAL(*) 1,000 MG in NS 0.9% 50 ML* 50 ML IVPB SCH (16:23)
[2017-05-17] MEDS: Cetirizine* 10 MG TAB PO SCH (17:27)
[2017-05-17] MEDS: Pramipexole TAB* 0.125 MG PO SCH (17:28)
[2017-05-17] MEDS ORDERED: oxyCODONE/Acetamin 5/325 MG* TAB PO PRN (19:23)
[2017-05-18] MEDS: methylPREDNISolone SOD 40 MG* 1 ML VIAL IV SCH (03:22)
[2017-05-18] MEDS: Levothyroxine TAB* 125 MCG TAB PO SCH (04:59)
[2017-05-18] MEDS: traMADol TAB* 50 MG PO PRN (04:59)
[2017-05-18] MEDS: PTO: Fluticasone-Salmeterol 500-50* DISKUS INH SCH (08:26)
[2017-05-18] MEDS: Tiotropium CAP.INH* CAP.INH/18 MCG (USE ORDER SET !) INH SCH (08:28)
[2017-05-18] MEDS: DOXYcycline IV* 100 MG in NS 0.9% 250 ML* 250 ML IVPB SCH (08:39)
[2017-05-18] MEDS: Gabapentin CAP(*) 300 MG PO SCH ×2 (08:42→13:23)
[2017-05-18] MEDS: Aspirin EC Low Dose* 81 MG TAB.EC PO SCH (08:43)
[2017-05-18] MEDS: Hydroxychloroquine TAB* 200 MG PO SCH (08:43)
[2017-05-18] MEDS: Docusate CAP* 100 MG PO SCH (08:43)
[2017-05-18] MEDS: Omeprazole CAP* 20 MG PO SCH (08:43)
[2017-05-18] MEDS: Lisinopril TAB* 5 MG PO SCH (08:43)
--- NOTE | 2017-05-18 09:13 | PN ---
Subjective Date of Service: 05/18/17 Interval History: Pt is feeling slightly better now than yesterday. She states however that this AM she got up using her home O2 pulse delivery system and felt more SOB than she was before. She is not coughing much. She denies any CP. She denies abdominal pain and diarrhea. Family History: Unchanged from Admission Social History: Unchanged from Admission Past Medical History: Unchanged from Admission Objective Active Medications: Acetaminophen (Tylenol Tab*) 650 mg PO Q4H PRN PRN Reason: FEVER/PAIN Last Admin: 05/17/17 23:12 Dose: 650 mg Albuterol/Ipratropium (Duoneb (Albuterol 2.5 Mg/Ipratropium 0.5 Mg)) 1 neb INH [id number] AWAKE PRN PRN Reason: sob/wheexing Aspirin (Aspirin Ec Low Dose*) 81 mg PO DAILY [facility] Last Admin: 05/18/17 08:43 Dose: 81 mg Cetirizine HCl (Zyrtec*) 10 mg PO QPM [facility] PRN Reason: Protocol Last Admin: 05/17/17 17:27 Dose: 10 mg Cyclobenzaprine HCl (Flexeril Tab*) 5 mg PO Q8HR PRN PRN Reason: SPASMS - MUSCLE Device (Tiotropium Inhaler Device*) 1 each .SEE ORDER .USE w/ SPIRIVA CAPS [facility] Docusate Sodium (Colace Cap*) 100 mg PO BID [facility] Last Admin: 05/18/17 08:43 Dose: 100 mg Enoxaparin Sodium (Lovenox(*)) 30 mg SUBCUT 1400 [facility] Last Admin: 05/17/17 14:23 Dose: 30 mg Gabapentin (Neurontin Cap(*)) 600 mg PO QID [facility] Last Admin: 05/18/17 08:42 Dose: 600 mg Hydroxychloroquine Sulfate (Plaquenil Tab*) 400 mg PO BID [facility] Last Admin: 05/18/17 08:43 Dose: 400 mg Ceftriaxone Sodium 1,000 mg/ (Sodium Chloride) 50 mls @ 200 mls/hr IVPB Q24H [facility] Last Admin: 05/17/17 16:23 Dose: 200 mls/hr Doxycycline Hyclate 100 mg/ (Sodium Chloride) 250 mls @ 250 mls/hr IVPB Q12H [facility] Last Admin: 05/18/17 08:39 Dose: 250 mls/hr Levothyroxine Sodium (Synthroid Tab*) 125 mcg PO 0600 [facility] Last Admin: 05/18/17 04:59 Dose: 125 mcg Lisinopril (Prinivil Tab*) 5 mg PO QAM [facility] Last Admin: 05/18/17 08:43 Dose: 5 mg Melatonin (Melatonin (Nf)) 3 mg PO BEDTIME PRN PRN Reason: SLEEP Last Admin: 05/17/17 01:28 Dose: 3 mg Methylprednisolone Sodium Succinate (Solu-Medrol 40 Mg) 60 mg IV Q12H [facility] Last Admin: 05/18/17 03:22 Dose: 60 mg Omeprazole (Prilosec Cap*) 20 mg PO BID [facility] Last Admin: 05/18/17 08:43 Dose: 20 mg Oxycodone/Acetaminophen (Percocet 5/325 Tab*) 2 tab PO BEDTIME PRN PRN Reason: PAIN - MODERATE Last Admin: 05/17/17 20:11 Dose: 2 tab Pramipexole Dihydrochloride (Mirapex Tab*) 0.125 mg PO 1600 [facility] Last Admin: 05/17/17 17:28 Dose: 0.125 mg Fluticasone/Salmeterol (Advair Diskus 500-50*) 1 puff INH BID [facility] Last Admin: 05/18/17 08:26 Dose: 1 puff Tiotropium [place] (Spiriva Cap.Inh*) 1 cap INH DAILY [facility] Last Admin: 05/18/17 08:28 Dose: Not Given Tramadol HCl (Ultram*) 50 mg PO Q6HR PRN PRN Reason: PAIN - ARTHRITIS Last Admin: 05/18/17 04:59 Dose: 50 mg Vital Signs 05/17/17 05/17/17 05/17/17 10:29 11:10 11:19 Temperature 97.6 F 97.6 F Pulse Rate 86 86 Respiratory 18 16 16 Rate Blood Pressure 138/56 138/56 (mmHg) O2 Sat by Pulse 96 96 Oximetry 05/17/17 05/17/17 05/17/17 14:19 15:37 16:19 Temperature 97.8 F Pulse Rate 87 Respiratory 16 20 18 Rate Blood Pressure 132/58 (mmHg) O2 Sat by Pulse 100 Oximetry 09/29/17 09/29/17 09/29/17 17:28 19:08 19:24 Temperature 97.8 F Pulse Rate 90 Respiratory 20 20 20 Rate Blood Pressure 145/72 (mmHg) O2 Sat by Pulse 94 Oximetry 05/17/17 05/17/17 05/17/17 19:28 20:11 22:11 Temperature Pulse Rate Respiratory 18 17 18 Rate Blood Pressure (mmHg) O2 Sat by Pulse Oximetry 05/17/17 05/18/17 05/18/17 23:15 03:19 04:59 Temperature 97.4 F 97.9 F Pulse Rate 93 78 Respiratory 22 20 20 Rate Blood Pressure 136/60 151/70 (mmHg) O2 Sat by Pulse 91 98 Oximetry 05/18/17 08:42 Temperature Pulse Rate Respiratory 19 Rate Blood Pressure (mmHg) O2 Sat by Pulse Oximetry Oxygen Devices in Use Now: Nasal Cannula - 3L Appearance: Elderly female sitting up in a chair eating breakfast, NAD Eyes: No Scleral Icterus Ears/Nose/Mouth/Throat: Mucous Membranes Moist Respiratory: Symmetrical Chest Expansion and Respiratory Effort, Clear to Auscultation Cardiovascular: NL Sounds; No Murmurs; No JVD, RRR, No Edema Abdominal: NL Sounds; No Tenderness; No Distention Extremities: No Clubbing, Cyanosis, - - + RA related joint deformites of the hands noted Skin: No Rash or Ulcers, No Nodules or Sclerosis Neurological: Alert and Oriented x 3 Result Diagrams: 05/17/17 05:16 05/17/17 05:16 Additional Lab and Data: Microbiology and Other Data: Microbiology 05/16/17 15:03 Aerobic Blood Culture - Preliminary Blood Venous No Growth Day 1 Anaerobic Blood Culture - Preliminary No Growth Day 1 05/16/17 14:55 Aerobic Blood Culture - Preliminary Blood Venous No Growth Day 1 Anaerobic Blood Culture - Preliminary No Growth Day 1 Assess/Plan/Problems-Billing Ms. Daigle is a 71 yo female with PMHx significant for chronic hypoxic respiratory failure secondary to COPD requiring 2L O2 continuously, YOLA, RA, CVA , GERD, HTN, hx DVT, and hypothyroidism who presented to the emergency room with shortness of breath and increased oxygen needs. - Patient Problems (1) COPD exacerbation Current Visit: Yes Status: Acute Code(s): J44.1 - CHRONIC OBSTRUCTIVE PULMONARY DISEASE W (ACUTE) EXACERBATION SNOMED Code(s): 636517612 Comment: The patient does not have any wheezing noted on exam. Her breath sounds are surprisingly full and clear to the bases. I question if her worsened SOB may just be related to progression of her underlying COPD. Additionally she has been off her methotrexate treatment for her RA. ? if she may have pulmonary manifestations of her RA that have flared off the methotrexate. She has an appointment with Jama Erazo NP next week. For now continue O2 at 3L and nebs. She has had now several full courses of Abx. Will stop the doxycycline and have her finish a course of cefpodoxime on discharge. Will start to taper the steroids as she has no wheezing. (2) MYESHA (acute kidney injury) Current Visit: Yes Status: Acute Code(s): N17.9 - ACUTE KIDNEY FAILURE, UNSPECIFIED SNOMED Code(s): 03179353 Comment: Resolved with IVF. Follow BMP intermittently as outpatient. (3) PNA (pneumonia) Current Visit: Yes Status: Acute Code(s): J18.9 - PNEUMONIA, UNSPECIFIED ORGANISM SNOMED Code(s): 947890630 Comment: Possible infiltrate on imaging however I do question if some of the change may be RA related lung disease changes. She will finish Abx as above. (4) Hypertension Current Visit: Yes Status: Chronic Code(s): I10 - ESSENTIAL (PRIMARY) HYPERTENSION SNOMED Code(s): 54155147 Comment: BP is mildly elevated. Will increase lisinopril to 10mg daily. (5) YOLA (obstructive sleep apnea) Current Visit: Yes Status: Chronic Code(s): G47.33 - OBSTRUCTIVE SLEEP APNEA (ADULT) (PEDIATRIC) SNOMED Code(s): 37301560 Comment: Continue home cpap. (6) Rheumatoid arthritis Current Visit: Yes Status: Chronic Code(s): M06.9 - RHEUMATOID ARTHRITIS, UNSPECIFIED SNOMED Code(s): 17559807 Comment: Continue plaquenil. Follow up with outpt rheumtologist next week. (7) Hypothyroidism Current Visit: Yes Status: Chronic Code(s): E03.9 - HYPOTHYROIDISM, UNSPECIFIED SNOMED Code(s): 08002018 Comment: Continue increased dose of synthroid and recheck TSH in 4-6 weeks . (8) GERD (gastroesophageal reflux disease) Current Visit: Yes Status: Chronic Code(s): K21.9 - GASTRO-ESOPHAGEAL REFLUX DISEASE WITHOUT ESOPHAGITIS SNOMED Code(s): 151255130 Comment: Continue omeprazole. (9) DVT prophylaxis Current Visit: Yes Status: Acute Code(s): EIN9856 - SNOMED Code(s): 695777752 Comment: Alvertox (10) Full code status Current Visit: Yes Status: Acute Code(s): Z78.9 - OTHER SPECIFIED HEALTH STATUS SNOMED Code(s): 756179979 Status and Disposition: .
[2017-05-18 10:34] VITALS: BP 151/64
[2017-05-18] MEDS: Enoxaparin(*) 30 MG/0.3 ML SYR SUBCUT SCH (13:24)
[2017-05-18] MEDS: cefTRIAXone VIAL(*) 1,000 MG in NS 0.9% 50 ML* 50 ML IVPB SCH (15:16)
[2017-05-18] MEDS: Pramipexole TAB* 0.125 MG PO SCH (17:08)
--- NOTE | 2017-05-19 01:50 | DS ---
CC: Dr. Reinoso; Melania Erazo NP * DISCHARGE SUMMARY: DATE OF ADMISSION: 05/16/17 DATE OF DISCHARGE: 05/18/17 PRIMARY CARE PROVIDER: Dr. Reinoso. VISUAL MERCHANDISING ASSISTANT: Melania Erazo NP PRINCIPAL DIAGNOSIS: Shortness of breath - possible chronic obstructive pulmonary disease exacerbation versus rheumatoid arthritis related lung disease. SECONDARY DIAGNOSES: 1. Hypertension. 2. Obstructive sleep apnea. 3. Rheumatoid arthritis. 4. Hypothyroidism. 5. Gastroesophageal reflux disease. 6. Acute kidney injury - resolved. DISCHARGE MEDICATIONS: 1. Celebrex 200 mg p.o. b.i.d. 2. Calcium plus D 1 tab p.o. b.i.d. 3. Colace 100 mg p.o. b.i.d. 4. Albuterol RespiClick 1 to 2 puffs inhaled q.4 hours p.r.n. shortness of breath. 5. Zyrtec 10 mg p.o. q.h.s. 6. Methotrexate 15 mg p.o. weekly - currently on hold. 7. Plaquenil 400 mg p.o. b.i.d. 8. Flexeril 5 mg p.o. q.8 hours p.r.n. spasm. 9. Omeprazole 20 mg p.o. b.i.d. 10. Gabapentin 600 mg p.o. 4 times a day. 11. Flonase 2 sprays both nostrils daily. 12. Diclofenac gel apply topically b.i.d. p.r.n. pain. 13. Estradiol patch 0.5 mg topically twice weekly. 14. Aspirin 81 mg p.o. daily. 15. Percocet 5/325 one tab p.o. 2 to 3 times daily p.r.n. pain. 16. Pramipexole 0.125 mg p.o. 2 to 3 hours before bedtime. 17. Tramadol 50 to 100 mg p.o. q.6 hours p.r.n. pain. 18. Advair 500/50 one puff inhaled twice daily. 19. Albuterol neb 1 neb inhaled 4 times daily p.r.n. shortness of breath. 20. Iron-vitamin C one tab p.o. b.i.d. 21. Prednisone 40 mg p.o. daily x4 days, 30 mg x4 days, then 20 mg x4 days, then 10 mg x4 days. 22. Lisinopril 10 mg p.o. daily (new dose). 23. Levothyroxine 125 mcg p.o. daily (new dose). 24. Vantin 200 mg p.o. twice daily x8 doses. HOSPITAL COURSE: Ms. Daigle is a 71-year-old female who presented to the emergency room on 05/16/17 with complaints of shortness of breath. The patient had recently been treated and was in fact in process of being treated for an upper respiratory tract infection by her primary care provider; however, noted increased oxygen demands over the last 3 days prior to admission and increasing shortness of breath. The patient was admitted for possible pneumonia with resultant COPD exacerbation. The patient, however, was not found to be febrile or to have a leukocytosis. The patient did, however, have concerning findings on CT imaging of the chest. The patient was continued on doxycycline and ceftriaxone for possible pneumonia. She was also started on IV steroids. The patient's breathing did improve over the course of her hospitalization; however , is still not as good as it was earlier this summer. Of note, the patient has been off her methotrexate since February of this year when she had orthopedic surgery performed on her hip. I questioned if the patient's progressive shortness of breath may be rheumatoid arthritis related lung disease such as an interstitial lung disease (pulmonary fibrosis) and the patient does have a followup appointment with Melania Erazo next week and I would recommend that the patient keep that appointment. She will need to discuss with Ms. Erazo if she should be restarted on her methotrexate. The patient will continue on Vantin for 4 more days as well as slow prednisone taper. Consultation with Dr. Santamaria could be considered as an outpatient. At this point, the patient while not back to her previous baseline, is feeling improved and would like to be discharged home today. FOLLOWUP CONCERNS: The patient is being discharged home today, 05/18/17. She is to follow up with Wanda Reinoso MD in the next 4 to 7 days and with Melania Erazo next week. ACTIVITY LEVEL: As tolerated. DIET: Regular. CONDITION ON DISCHARGE: Stable. TIME SPENT: 35 minutes were spent discharging this patient. [id number]/[facility] #: [id number] DONALD
[2017-05-19] MEDS ORDERED: Lisinopril TAB* 10 MG PO SCH (09:00)
== END 2017-05-18 16:05 | disposition home or self-care (01) | DRG 190 ==
LOC: ED 09:26 → MED 13:34
PROVIDERS: ADMIT Internal Medicine; ATTEND Hospitalist
PROC: 5A09357 Assistance with Respiratory Ventilation, Less than 24 Consecutive Hours, Continuous Positive Airway Pressure (ICD-10-PCS; principal; 2017-05-16)
PROC: 3E0234Z Introduction of Serum, Toxoid and Vaccine into Muscle, Percutaneous Approach (ICD-10-PCS; 2017-05-17)
DX: J44.1 Chronic obstructive pulmonary disease with (acute) exacerbation (principal); J18.9 Pneumonia, unspecified organism; N17.9 Acute kidney failure, unspecified; J96.11 Chronic respiratory failure with hypoxia; J84.10 Pulmonary fibrosis, unspecified; I34.1 Nonrheumatic mitral (valve) prolapse; Z99.81 Dependence on supplemental oxygen; J44.0 Chronic obstructive pulmonary disease with (acute) lower respiratory infection; M06.9 Rheumatoid arthritis, unspecified; E03.9 Hypothyroidism, unspecified; I10 Essential (primary) hypertension; K21.9 Gastro-esophageal reflux disease without esophagitis; M81.0 Age-related osteoporosis without current pathological fracture; M19.90 Unspecified osteoarthritis, unspecified site; G47.33 Obstructive sleep apnea (adult) (pediatric); Z96.641 Presence of right artificial hip joint; E86.1 Hypovolemia; G43.909 Migraine, unspecified, not intractable, without status migrainosus; Z98.42 Cataract extraction status, left eye; Z98.41 Cataract extraction status, right eye; Z90.710 Acquired absence of both cervix and uterus; Z98.1 Arthrodesis status; Z82.49 Family history of ischemic heart disease and other diseases of the circulatory system; Z88.1 Allergy status to other antibiotic agents; Z88.8 Allergy status to other drugs, medicaments and biological substances; Z91.040 Latex allergy status; Z86.718 Personal history of other venous thrombosis and embolism; Z82.3 Family history of stroke; Z82.5 Family history of asthma and other chronic lower respiratory diseases; Z84.1 Family history of disorders of kidney and ureter; Z87.891 Personal history of nicotine dependence; Z90.722 Acquired absence of ovaries, bilateral; Z86.73 Personal history of transient ischemic attack (TIA), and cerebral infarction without residual deficits; Z23 Encounter for immunization; Z79.82 Long term (current) use of aspirin
CPT/HCPCS: 36415; 71010; 71275; 80048; 80053; 81003; 83605; 83690; 83735; 83880; 84443; 84484; 85025; 85379; 85610; 85730; 86140; 87040; 90686; 93005; 94640; 94660; 94760; A9270-GY; J0456; J0696; J1650; J2920; J2930; Q9967

== ENCOUNTER 2017-05-19 15:31 | Inpatient (IN) | payer MEDICARE ==
--- NOTE | 2017-05-19 16:23 | RAD ---
HISTORY: Shortness of breath COMPARISONS: May 08, 2017 VIEWS: 1: frontal portable view of the chest at 4 5:00 PM FINDINGS: LINES AND TUBES: None. CARDIOMEDIASTINAL SILHOUETTE: The cardiomediastinal silhouette is normal for portable technique. PLEURA: The costophrenic angles are sharp. No pleural abnormalities are noted. LUNG PARENCHYMA: There is mild hyperinflation. There is diffuse coarse pattern of reticular opacification. ABDOMEN: The upper abdomen is clear. There is no subphrenic gas. BONES AND SOFT TISSUES: No bone or soft tissue abnormalities are noted. IMPRESSION: AGAIN NOTED IS DIFFUSE INTERSTITIAL OPACIFICATION. THE DIFFERENTIAL INCLUDES PULMONARY INTERSTITIAL EDEMA VERSUS CHRONIC INTERSTITIAL LUNG DISEASE
[2017-05-19 16:37] LABS: Hematocrit 33 % (35-47); Hemoglobin 10.9 g/dl (12.0-16.0); Mean Corpuscular HGB Conc 33 g/dl (31-36); Mean Corpuscular Hemoglobin 34 pg (27-31); Mean Corpuscular Volume 101 fL (80-97); Mean Platelet Volume 8 um3 (7.4-10.4); Red Blood Count 3.24 10^6/ul (4.0-5.4); Red Cell Distribution Width 15 % (10.5-15); White Blood Count 9.9 10^3/ul (3.5-10.8)
[2017-05-19 16:49] LABS: Albumin 3.6 g/dL (3.2-5.2); BUN/Creatinine Ratio 22.5 (8-20); C Reactive Protein 35.75 mg/L (< 5.00); Calcium 8.9 mg/dL (8.6-10.3); EGFR African American 90.7 (>60); EGFR Non-African American 70.5 (>60); Globulin 3.2 g/dL (2-4); Potassium 3.5 mmol/L (3.5-5.0); Total Bilirubin 0.3 mg/dL (0.2-1.0); Total Protein 6.8 g/dL (6.4-8.9)
[2017-05-19 16:50] LABS: Troponin I 0.01 ng/mL (<0.04)
[2017-05-19] MEDS ORDERED: Albuterol HFA INHALER* 8 gm MDI INH PRN (18:36)
[2017-05-19] MEDS ORDERED: Albuterol 2.5 MG/3 ML NEB.SOL* (0.083%) INH PRN (18:36)
[2017-05-19] MEDS ORDERED: Furosemide IV* 10 MG/ML 2 ML VIAL (20 MG) IV ONE (18:40)
[2017-05-19] MEDS: Mometasone/Formoter 200/5 MDI INH SCH (20:20)
[2017-05-19] MEDS: Gabapentin CAP(*) 300 MG PO SCH (22:13)
[2017-05-19] MEDS: CEFPODOXIME 200 MG PO SCH (22:13)
[2017-05-19] MEDS: Cyclobenzaprine TAB* 10 MG PO PRN (22:14)
[2017-05-19] MEDS: Hydroxychloroquine TAB* 200 MG PO SCH (22:15)
[2017-05-19] MEDS: Omeprazole CAP* 20 MG PO SCH (22:16)
[2017-05-19] MEDS: Heparin VIAL(*) 5000 UNITS/ML VIAL (FIVE THOUSAND) SUBCUT SCH (22:17)
[2017-05-19] MEDS: oxyCODONE/Acetamin 5/325 MG* TAB PO SCH (22:17)
[2017-05-19] MEDS: Docusate CAP* 100 MG PO SCH (22:18)
[2017-05-20] MEDS: traMADol TAB* 50 MG PO PRN ×2 (00:10→10:06)
[2017-05-20] MEDS: Acetaminophen TAB* 325 MG PO PRN (01:03)
--- NOTE | 2017-05-20 03:24 | HP ---
CC: Dr. Reinoso; Dr. Santamaria * HISTORY AND PHYSICAL: DATE OF ADMISSION: 05/19/17 PRIMARY CARE PROVIDER: Dr. Reinoso. CHIEF COMPLAINT: Shortness of breath. HISTORY OF PRESENT ILLNESS: Mrs. Daigle is a 71-year-old female who was just discharged from our facility yesterday with worsening hypoxemic respiratory failure on chronic respiratory failure and due to COPD exacerbation who came back to our ER today with worsening dyspnea. The patient stated that ever since her discharge, her oxygen was increased at 3 L continuously and she had been feeling worsening dyspnea on exertion. In fact, she stated that she could not really sleep well after her discharge due to that. On the morning on , she was getting dressed and she stated that she forgot to put her oxygen on back while she put her shirt on. She stated that she started feeling very tired and she wanted to fall asleep. She sat down on her chair, closed her eyes , and the patient stated she just fell asleep and she was found by her sister who lives next door. Her sister apparently saw the patient sitting on a chair cyanotic, hardly breathing and thought that her sister was . She called 911. She was on 8 L via nonbreather when she presented to the emergency department in respiratory distress. By ____, she was somewhat stabilized with the oxygen, right now she is on 6 L of oxygen via nasal cannula, comfortable with oxygen saturation of 98%. Her portable chest x-ray shows vascular congestion and her brain natriuretic peptide was elevated from before today at above 200. She is going to be placed on overnight observation. At this point, from my review of previous medical records and patient's CAT scan reporting severe interstitial bilateral changes, I suspect pulmonary fibrosis or rheumatoid lung. I have asked Dr. Santamaria to see the patient in the morning. PAST MEDICAL HISTORY: 1. COPD, on 2 L continuously on her recent admission on 05/16/17 from which she was discharged on 05/18/17 on oxygen at 3 L. The patient stated that she had been on antibiotics for the past 1 month as well as steroid tapers without any resolution of her dyspnea. 2. History of rheumatoid arthritis. 3. History of obstructive sleep apnea, on CPAP. 4. History of CVA without significant residual deficit. 5. History of gastroesophageal reflux disease. 6. Hypertension. 7. History of provoked DVT in the past. 8. Hypothyroidism. 9. Hysterectomy. 10. Bilateral oophorectomy. 11. Incisional hernia repair. 12. Small bowel obstruction. 13. Back surgery and cervical spine fusion. 14. History of bunionectomy and hammertoe correction. 15. History of surgery on her right knee and right rotator cuff repair. 16. History of status post implantable event monitor. 17. History of right hip arthroplasty. MEDICATIONS AT HOME: Unchanged from her discharge yesterday and those include: 1. Albuterol nebulizer on a p.r.n. basis as well as albuterol inhaler on p.r.n. basis. 2. Aspirin 81 mg daily. 3. Calcium carbonate 1 tablet b.i.d. 4. Cefpodoxime 200 mg twice a day. The patient is supposed to continue it for the next 3 days. 5. Flexeril 5 mg every 8 hours p.r.n. 6. Diclofenac gel on a p.r.n. basis. 7. Estradiol patch 0.05 mg a day. 8. Fluticasone nasal spray 2 sprays both nostrils daily. 9. Advair 500/50 one inhalation b.i.d. 10. Gabapentin 600 mg 4 times a day. 11. Plaquenil 400 mg b.i.d. 12. Iron with vitamin C 1 tab b.i.d. 13. Synthroid 125 mcg daily. 14. Lisinopril 10 mg daily. 15. Methotrexate 2.5 mg tablets, the patient used to take 15 mg weekly and for the time being it is held. 16. Omeprazole 20 mg b.i.d. 17. Pramipexole 0.125 mg on a p.r.n. basis. 18. Celebrex 200 mg p.o. b.i.d. 19. Oxycodone with acetaminophen 5/325 mg one tablet p.o. b.i.d. p.r.n. 20. Prednisone 40 mg daily for the next 3 days. 21. Ultram 50 mg on a p.r.n. basis. FAMILY HISTORY: Positive for mother with history of CVA and father with history of heart disease and COPD. SOCIAL HISTORY: The patient ambulates with a walker. She lives in an apartment adjacent to her sister's apartment, who stated that she is her "brains." She has excessive smoking history and quit in 2004. She denies any alcohol or drug use. Her healthcare proxy is Cary Harper, the patient's daughter. REVIEW OF SYSTEMS: Please see the history of present illness. The patient stated that she has not had any chest pain. She denies any cough or wheezing. Her appetite had been good. Despite that, she lost approximately 10 pounds in the past 1 to 2 months. She denies any leg edema. All the remaining 14 systems were reviewed with the patient and were otherwise negative. PHYSICAL EXAMINATION GENERAL APPEARANCE: This is a very pleasant 71-year-old female who is in no acute distress, alert, awake, and oriented x3. VITAL SIGNS: Blood pressure 140/66, heart rate of 86 and regular, respiratory rate 22, oxygen saturation 97% on 6 L of oxygen nasal cannula, temperature of 97.8. HEENT: Head atraumatic, normocephalic. Eyes, pupils are equal, round, and reactive to light and accommodation. Oropharynx is clear. Mucosa dry. NECK: Supple. No JVD, no bruits bilaterally. RESPIRATORY: Clear to auscultation bilaterally. CARDIOVASCULAR: Regular rate and rhythm. No murmurs. ABDOMEN: Soft, nontender. Bowel sounds are present in all 4 quadrants. EXTREMITIES: There is no edema, pulses are +2 bilaterally. No clubbing or cyanosis. NEURO EVALUATION: Speech is clear. Cranial nerves II through XII are grossly intact. Motor strength is 5/5 bilaterally. SKIN: On evaluation of the skin, no rashes noted. PSYCHIATRIC EVALUATION: Oriented x3 with no evidence of anxiety or depression. DIAGNOSTIC STUDIES/LABORATORY DATA: Include: White blood cell count of 9.9, hemoglobin of 10.9, hematocrit of 33, MCV of 101 , and platelets of 213. Sodium was 141, potassium 3.5, chloride 110, carbon dioxide 23, BUN 18, creatinine 0.8. Liver function tests were unremarkable. Troponin of 0.01. C- reactive protein was 35, down from 105 on 05/16/17. Portable chest x-ray was read by the radiologist as "again noted is diffuse interstitial opacification. The differential includes pulmonary interstitial edema versus chronic interstitial lung disease." Patient's EKG showed normal sinus rhythm with a heart rate of 85 beats per minute with no ST changes. ASSESSMENT AND PLAN: Mrs. Daigle is a 71-year-old female with history of oxygen- dependent chronic obstructive pulmonary disease as well as rheumatoid arthritis, who was just discharged from our facility with a diagnosis of: 1. Chronic obstructive pulmonary disease exacerbation yesterday. The patient forgot to place her oxygen back on after she was dressing herself up and was found hypoxemic and obtunded by her sister. At this point, she appears to have mild vascular congestion on her x-ray and brain natriuretic peptide was elevated. I will treat her with one dose of diuretics, but overall I do not believe that her presentation is due to pulmonary edema. I suspect that she could have developed negative pressure pulmonary edema after she developed respiratory distress or as a reaction to that. I reviewed her CT angiogram of the chest obtained on 05/16/17, which shows diffuse interstitial changes in bilateral lower lungs. That could be related to pulmonary fibrosis or rheumatoid lung disease. At this point, I will continue her on outpatient antibiotics and outpatient prednisone dose and ask Dr. Santamaria to see the patient in consultation. Dr. Santamaria had seen the patient in the past. 2. In regards to the patient's rheumatoid arthritis, the Plaquenil is going to be continued. We will continue holding methotrexate. 3. In regard to the patient's hypothyroidism, her TSH was 14 three days ago and her Synthroid dose was increased. We will continue to increase the dose of Synthroid. 4. For obstructive sleep apnea, the patient is going to be continued on CPAP as previously used. 5. Code status is full. 6. For DVT prophylaxis, the patient is going to be placed on subcutaneous heparin. TIME SPENT: Approximately 62 minutes was spent on admission of this patient, more than half that time was spent [id number] with the patient during the interview and physical exam. [id number]/[facility] #: [id number] DONALD
[2017-05-20] MEDS ORDERED: oxyCODONE/Acetamin 5/325 MG* TAB PO ONE (04:18)
[2017-05-20] MEDS: Heparin VIAL(*) 5000 UNITS/ML VIAL (FIVE THOUSAND) SUBCUT SCH ×3 (06:02→21:39)
[2017-05-20] MEDS: Levothyroxine TAB* 125 MCG TAB PO SCH (06:02)
[2017-05-20] MEDS: Mometasone/Formoter 200/5 MDI INH SCH ×2 (08:21→20:04)
[2017-05-20] MEDS: Fluticasone NASAL SPRAY 50MCG* 16 gm SPRAY BTL BOTH NARES SCH (09:52)
[2017-05-20] MEDS: CEFPODOXIME 200 MG PO SCH ×2 (09:53→20:23)
[2017-05-20] MEDS: predniSONE TAB* 20 MG PO SCH (09:57)
[2017-05-20] MEDS: Docusate CAP* 100 MG PO SCH ×2 (09:58→20:25)
[2017-05-20] MEDS: Lisinopril TAB* 10 MG PO SCH (09:58)
[2017-05-20] MEDS: Gabapentin CAP(*) 300 MG PO SCH ×4 (09:58→20:25)
[2017-05-20] MEDS: Omeprazole CAP* 20 MG PO SCH ×2 (09:58→20:24)
[2017-05-20] MEDS: Aspirin EC Low Dose* 81 MG TAB.EC PO SCH (09:58)
[2017-05-20] MEDS: Hydroxychloroquine TAB* 200 MG PO SCH ×2 (10:00→20:24)
--- NOTE | 2017-05-20 10:52 | ED ---
Lopez Romero SooYoung, scribed for Ankit Ramírez MD on 05/19/17 at 1602 . Shortness of Breath - HPI Summary HPI Summary: A 71 y/o F [place] presents to ED with c/o SOB onset last night, and worsening today. Pt was dispo from [facility] yesterday with possible COPD or exacerbation of her RA. Associated sx: fatigue. - History of Current Complaint Chief Complaint: EDShortnessOfBreath Time Seen by Provider: 05/19/17 15:42 Hx Obtained From: Patient Onset/Duration: Lasting Days - onset last night, Still Present Timing: Constant Aggrevating Factors: Movement - Allergy/Home Medications Allergies/Adverse Reactions: Allergies Allergy/AdvReac Type Severity Reaction Status Date / Time Amoxicillin [From Augmentin] Allergy Severe Difficulty Verified 05/17/17 16:16 Breathing Clavulanic Acid Allergy Severe Difficulty Verified 05/17/17 16:16 [From Augmentin] Breathing Erythromycin Allergy Intermediate Rash Verified 05/17/17 16:16 Latex Allergy Intermediate Rash Verified 05/17/17 16:16 Aminophylline Allergy Mild Rash Verified 05/17/17 16:16 Atorvastatin [From Lipitor] Allergy Stomach Verified 05/17/17 16:16 Cramps Epinephrine Allergy Rash Verified 05/19/17 19:14 Nystatin [From Mycolog-II] Allergy Unknown Verified 05/19/17 19:12 Reaction Details Pravastatin Allergy Stomach Verified 05/17/17 16:16 Cramps Triamcinolone Allergy Unknown Verified 05/19/17 19:11 [From Mycolog-II] Reaction Details ADHESIVE TAPE Allergy Intermediate Blisters Uncoded 05/17/17 16:16 ANTINFLAMMATORY Allergy Mild GI Upset Uncoded 05/17/17 16:16 PMH/Surg Hx/FS Hx/Imm Hx Previously Healthy: No Endocrine/Hematology History: Reports: Hx Thyroid Disease - HYPO Denies: Hx Diabetes Cardiovascular History: Reports: Hx Hypertension, Hx Valvular Heart Disease - MVP, Other Cardiovascular Problems/Disorders - Hx of DVT following a muscle tear with hematoma 1993 Denies: Hx Pacemaker/ICD Respiratory History: Reports: Hx Asthma - CONTROLLED WITH INHALER, Hx Chronic Obstructive Pulmonary Disease (COPD), Hx Sleep Apnea - SLEEP STUDY 03/03/15 GI History: Reports: Hx Gastroesophageal Reflux Disease Denies: Hx Ulcer History: Reports: Hx Kidney Infection - HX OF Denies: Hx Dialysis, Hx Renal Disease Musculoskeletal History: Reports: Hx Arthritis - OSTEOARTHRITIS AND RA, Hx Rheumatoid Arthritis, Hx Bursitis - HISTORY IN SHOULDER, Hx Osteoporosis, Hx Tendonitis - IN ELBOW, Other Musculoskeletal History - degenrative disc disease Denies: Hx Back Problems Sensory History: Reports: Hx Cataracts - HAD SURGERY ON BOTH EYES Denies: Hx Contacts or Glasses, Hx Hearing Aid Opthamlomology History: Reports: Hx Cataracts - HAD SURGERY ON BOTH EYES Denies: Hx Contacts or Glasses Neurological History: Reports: Hx Headaches - lately, Hx Migraine, Other Neuro Impairments/Disorders - RHEUMATOID ARTHRITIS Denies: Hx Dementia, Hx Seizures Psychiatric History: Denies: Hx Panic Disorder - Cancer History Hx Chemotherapy: No Hx Radiation Therapy: No - Surgical History Surgery Procedure, Year, and Place: HYSTERECTOMY 1974. ABDOMINAL BOWEL OBSTRUCTION 1982. NEUROMA BILAT FEET. LUMBAR FUSION 1989. CERVICAL FUSION 1990. BILAT CTR- 3-4 YEARS AGO [facility]. HERNIA REPAIR [facility]. BILAT CATARACT [facility]. RT KNEE ACL REPAIR [facility]. R ROTATOR CUFF REPAIR 01/29 [facility]. IMPLANTED EVENT MONITOR 04/2013 Hx Anesthesia Reactions: No Infectious Disease History: No Infectious Disease History: Denies: Hx Clostridium Difficile, Hx Hepatitis, Hx Human Immunodeficiency Virus (HIV), Hx of Known/Suspected MRSA, Hx Shingles, Hx Tuberculosis, Traveled Outside the [place] in Last 30 Days - Family History Known Family History: Positive: Unknown, Cardiac Disease - father, Renal Disease - father, Respiratory Disease - Father: COPD. , Other - Mother: stroke - Social History Occupation: Retired Lives: Alone Alcohol Use: Rare Hx Substance Use: No Substance Use Type: Reports: None Substance Use Comment - Amount & Last Used: Tramadol Hx Tobacco Use: Yes Smoking Status (MU): Former Smoker Type: Cigarettes Amount Used/How Often: 30 yrs Have You Smoked in the Last Year: No Review of Systems Positive: Fatigue. Negative: Fever Positive: Shortness Of Breath All Other Systems Reviewed And Are Negative: Yes Physical Exam Triage Information Reviewed: Yes Vital Signs On Initial Exam: Initial Vitals Temp Pulse Resp BP Pulse Ox 97.8 F 109 18 168/84 87 05/19/17 15:34 05/19/17 15:34 05/19/17 15:34 05/19/17 15:34 05/19/17 15:34 Vital Signs Reviewed: Yes Appearance: Positive: Well-Appearing, No Pain Distress Skin: Positive: Warm, Skin Color Reflects Adequate Perfusion, Dry Head/Face: Positive: Normal Head/Face Inspection Eyes: Positive: Normal ENT: Positive: Normal ENT inspection Neck: Positive: Supple, Nontender Respiratory/Lung Sounds: Positive: Breath Sounds Present, Other - pos: tachypnic , bilat crackle in upper 1/3 lungs Cardiovascular: Positive: Tachycardia Abdomen Description: Positive: Nontender, Soft Bowel Sounds: Positive: Present Musculoskeletal: Positive: Normal Neurological: Positive: Normal Psychiatric: Positive: Normal, Affect/Mood Appropriate - [place] Coma Scale Coma Scale Total: 15 Diagnostics - Vital Signs Vital Signs Temp Pulse Resp BP Pulse Ox 05/19/17 15:46 105 98 05/19/17 15:45 155/78 05/19/17 15:34 97.8 F 109 18 168/84 87 - Laboratory Lab Results: Lab Results 05/19/17 05/19/17 05/19/17 Range/Units 16:15 16:15 16:15 WBC 9.9 (3.5-10.8) 10^3/ul RBC 3.24 L (4.0-5.4) 10^6/ul Hgb 10.9 L (12.0-16.0) g/dl Hct 33 L (35-47) % MCV 101 H (80-97) fL MCH 34 H (27-31) pg MCHC 33 (31-36) g/dl RDW 15 (10.5-15) % Plt Count 213 (150-450) 10^3/ul MPV 8 (7.4-10.4) um3 Neut % (Auto) 93.1 H (38-83) % Lymph % (Auto) 4.4 L (25-47) % [place] % (Auto) 2.0 (1-9) % Eos % (Auto) 0.1 (0-6) % Baso % (Auto) 0.4 (0-2) % Absolute Neuts (auto) 9.2 H (1.5-7.7) 10^3/ul Absolute Lymphs (auto) 0.4 L (1.0-4.8) 10^3/ul Absolute Monos (auto) 0.2 (0-0.8) 10^3/ul Absolute Eos (auto) 0 (0-0.6) 10^3/ul Absolute Basos (auto) 0 (0-0.2) 10^3/ul Absolute Nucleated RBC 0 10^3/ul Nucleated RBC % 0 INR (Anticoag Therapy) (0.89-1.11) D-Dimer, Quantitative (Less Than 230) ng/mL Sodium 141 (133-145) mmol/L Potassium 3.5 (3.5-5.0) mmol/L Chloride 110 (101-111) mmol/L Carbon Dioxide 23 (22-32) mmol/L Anion Gap 8 (2-11) mmol/L BUN 18 (6-24) mg/dL Creatinine 0.80 (0.51-0.95) mg/dL Est GFR ( Amer) 90.7 (>60) Est GFR (Non-Af Amer) 70.5 (>60) BUN/Creatinine Ratio 22.5 H (8-20) Glucose 176 H (70-100) mg/dL Lactic Acid (0.5-2.0) mmol/L Calcium 8.9 (8.6-10.3) mg/dL Total Bilirubin 0.30 (0.2-1.0) mg/dL AST 21 (13-39) U/L ALT 9 (7-52) U/L Alkaline Phosphatase 67 (34-104) U/L Troponin I 0.01 (<0.04) ng/mL C-Reactive Protein 35.75 H (< 5.00) mg/L B-Natriuretic Peptide 267 H ( - 100) pg/mL Total Protein 6.8 (6.4-8.9) g/dL Albumin 3.6 (3.2-5.2) g/dL Globulin 3.2 (2-4) g/dL Albumin/Globulin Ratio 1.1 (1-3) 05/19/17 05/19/17 Range/Units 16:15 16:15 WBC (3.5-10.8) 10^3/ul RBC (4.0-5.4) 10^6/ul Hgb (12.0-16.0) g/dl Hct (35-47) % MCV (80-97) fL MCH (27-31) pg MCHC (31-36) g/dl RDW (10.5-15) % Plt Count (150-450) 10^3/ul MPV (7.4-10.4) um3 Neut % (Auto) (38-83) % Lymph % (Auto) (25-47) % [place] % (Auto) (1-9) % Eos % (Auto) (0-6) % Baso % (Auto) (0-2) % Absolute Neuts (auto) (1.5-7.7) 10^3/ul Absolute Lymphs (auto) (1.0-4.8) 10^3/ul Absolute Monos (auto) (0-0.8) 10^3/ul Absolute Eos (auto) (0-0.6) 10^3/ul Absolute Basos (auto) (0-0.2) 10^3/ul Absolute Nucleated RBC 10^3/ul Nucleated RBC % INR (Anticoag Therapy) 0.91 (0.89-1.11) D-Dimer, Quantitative 729 H (Less Than 230) ng/mL Sodium (133-145) mmol/L Potassium (3.5-5.0) mmol/L Chloride (101-111) mmol/L Carbon Dioxide (22-32) mmol/L Anion Gap (2-11) mmol/L BUN (6-24) mg/dL Creatinine (0.51-0.95) mg/dL Est GFR ( Amer) (>60) Est GFR (Non-Af Amer) (>60) BUN/Creatinine Ratio (8-20) Glucose (70-100) mg/dL Lactic Acid 1.8 (0.5-2.0) mmol/L Calcium (8.6-10.3) mg/dL Total Bilirubin (0.2-1.0) mg/dL AST (13-39) U/L ALT (7-52) U/L Alkaline Phosphatase (34-104) U/L Troponin I (<0.04) ng/mL C-Reactive Protein (< 5.00) mg/L B-Natriuretic Peptide ( - 100) pg/mL Total Protein (6.4-8.9) g/dL Albumin (3.2-5.2) g/dL Globulin (2-4) g/dL Albumin/Globulin Ratio (1-3) Result Diagrams: 05/19/17 16:15 05/19/17 16:15 Lab Statement: Any lab studies that have been ordered have been reviewed, and results considered in the medical decision making process. - Radiology CXR Xray Interpretation: Positive (See Comments) - IMPRESSION: AGAIN NOTED IS DIFFUSE INTERSTITIAL OPACIFICATION. THE DIFFERENTIAL INCLUDES PULMONARY INTERSTITIAL EDEMA VERSUS CHRONIC INTERSTITIAL LUNG DISEASE. ED physician has reviewed this radiology report and agrees. Radiology Interpretation Completed By: Radiologist - EKG 1650 EKG Rhythm: Sinus Rhythm - 85bpm ST Segment: Normal - no STEMI Course/Dx - Course Course Of Treatment: Ms. Daigle returned with increased SOB. Today she has crackles 1/3 up bilaterally and her BNP is up from two days ago. She will be readmitted for further treatment. - Diagnoses Provider Diagnoses: CHF (congestive heart failure) - Physician Notifications Discussed Care of Patient With: Lilliana Marley - hospitalist Time Discussed With Above Provider: 17:44 Instructed by Provider To: Admit As Inpatient Discharge - Discharge Plan Condition: Stable Disposition: ADMITTED TO [facility] The documentation as recorded by the Lopez morgan SooYoung accurately reflects the service I personally performed and the decisions made by me, Ankit Ramírez MD.
[2017-05-20] MEDS: oxyCODONE/Acetamin 5/325 MG* TAB PO SCH ×3 (11:20→12:08)
--- NOTE | 2017-05-20 15:25 | PN ---
Subjective Date of Service: 05/20/17 Interval History: Pt is anxious re: increased 02 needs, gets very SOB when ambulating even on increased 02 at 5L Objective Active Medications: Acetaminophen (Tylenol Tab*) 650 mg PO Q4H PRN PRN Reason: FEVER/PAIN Last Admin: 05/20/17 01:03 Dose: 650 mg Albuterol (Ventolin 2.5 Mg/3 Ml Neb.[place]*) 1.25 mg INH QID PRN PRN Reason: SHORTNESS OF BREATH Albuterol (Ventolin Hfa Inhaler*) 2 puff INH Q4HR PRN PRN Reason: SHORTNESS OF BREATH Last Admin: 05/20/17 09:51 Dose: 2 puff Aspirin (Aspirin Ec Low Dose*) 81 mg PO DAILY [facility] Last Admin: 05/20/17 09:58 Dose: 81 mg Cefpodoxime Proxetil (Vantin (Nf)) 200 mg PO Q12H [facility] Last Admin: 05/20/17 09:53 Dose: 200 mg Cyclobenzaprine HCl (Flexeril Tab*) 5 mg PO Q8HR PRN PRN Reason: SPASMS - MUSCLE Last Admin: 05/19/17 22:14 Dose: 5 mg Docusate Sodium (Colace Cap*) 100 mg PO BID [facility] Last Admin: 05/20/17 09:58 Dose: 100 mg Fluticasone Propionate (Flonase Nasal [place] 50mcg*) 2 spray BOTH NARES DAILY [facility] Last Admin: 05/20/17 09:52 Dose: 2 spray Gabapentin (Neurontin Cap(*)) 600 mg PO QID [facility] Last Admin: 05/20/17 12:45 Dose: 600 mg Heparin Sodium (Porcine) (Heparin Vial(*)) 5,000 units SUBCUT Q8HR [facility] Last Admin: 05/20/17 06:02 Dose: 5,000 units Hydroxychloroquine Sulfate (Plaquenil Tab*) 400 mg PO BID [facility] Last Admin: 05/20/17 10:00 Dose: 400 mg Levothyroxine Sodium (Synthroid Tab*) 125 mcg PO 0600 [facility] Last Admin: 05/20/17 06:02 Dose: 125 mcg Lisinopril (Prinivil Tab*) 10 mg PO QAM [facility] Last Admin: 05/20/17 09:58 Dose: 10 mg Mometasone Furoate/Formoterol Fumar (Dulera 200/5 Mdi*) 2 puff INH BID [facility] Last Admin: 05/20/17 08:21 Dose: Not Given Omeprazole (Prilosec Cap*) 20 mg PO BID [facility] Last Admin: 05/20/17 09:58 Dose: 20 mg Oxycodone/Acetaminophen (Percocet 5/325 Tab*) 1 tab PO TID [facility] Last Admin: 05/20/17 12:08 Dose: 1 tab Prednisone (Deltasone Tab*) 40 mg PO DAILY [facility] Last Admin: 05/20/17 09:57 Dose: 40 mg Tramadol HCl (Ultram*) 50 mg PO Q6HR PRN PRN Reason: PAIN - ARTHRITIS Last Admin: 05/20/17 10:06 Dose: 50 mg Vital Signs 05/19/17 05/19/17 05/19/17 19:00 19:10 19:45 Temperature 97.7 F Pulse Rate 79 77 Respiratory 16 20 22 Rate Blood Pressure 165/64 152/76 (mmHg) O2 Sat by Pulse 99 98 Oximetry 05/19/17 05/19/17 05/19/17 20:00 22:13 22:14 Temperature Pulse Rate Respiratory 20 20 16 Rate Blood Pressure (mmHg) O2 Sat by Pulse Oximetry 05/19/17 05/19/17 05/20/17 22:17 23:31 00:10 Temperature 98.0 F Pulse Rate 81 Respiratory 20 16 18 Rate Blood Pressure 149/61 (mmHg) O2 Sat by Pulse 96 Oximetry 05/20/17 05/20/17 05/20/17 00:13 00:14 00:17 Temperature Pulse Rate Respiratory 18 18 18 Rate Blood Pressure (mmHg) O2 Sat by Pulse Oximetry 05/20/17 05/20/17 05/20/17 02:10 03:29 04:29 Temperature Pulse Rate 73 Respiratory 18 16 20 Rate Blood Pressure 156/67 (mmHg) O2 Sat by Pulse 99 Oximetry 05/20/17 05/20/17 05/20/17 09:58 10:06 10:09 Temperature Pulse Rate Respiratory 18 18 Rate Blood Pressure (mmHg) O2 Sat by Pulse 93 Oximetry 05/20/17 05/20/17 05/20/17 12:06 12:08 12:45 Temperature Pulse Rate Respiratory 18 14 16 Rate Blood Pressure (mmHg) O2 Sat by Pulse Oximetry Oxygen Devices in Use Now: Nasal Cannula - at 5L Appearance: 71 yo f in nAD, aAOx3 Eyes: No Scleral Icterus, PERRLA Ears/Nose/Mouth/Throat: NL Teeth, Lips, Gums, Mucous Membranes Moist Neck: NL Appearance and Movements; NL JVP, Trachea Midline Respiratory: Symmetrical Chest Expansion and Respiratory Effort, - - crackles at b/l bases Cardiovascular: NL Sounds; No Murmurs; No JVD, RRR Abdominal: NL Sounds; No Tenderness; No Distention Lymphatic: No Cervical Adenopathy Extremities: No Edema, No Clubbing, Cyanosis Skin: No Rash or Ulcers, No Nodules or Sclerosis Neurological: Alert and Oriented x 3, NL Muscle Strength and Tone Result Diagrams: 05/19/17 16:15 05/19/17 16:15 Additional Lab and Data: Lab Results 05/19/17 05/19/17 05/19/17 Range/Units 16:15 16:15 16:15 WBC 9.9 (3.5-10.8) 10^3/ul RBC 3.24 L (4.0-5.4) 10^6/ul Hgb 10.9 L (12.0-16.0) g/dl Hct 33 L (35-47) % MCV 101 H (80-97) fL MCH 34 H (27-31) pg MCHC 33 (31-36) g/dl RDW 15 (10.5-15) % Plt Count 213 (150-450) 10^3/ul MPV 8 (7.4-10.4) um3 Neut % (Auto) 93.1 H (38-83) % Lymph % (Auto) 4.4 L (25-47) % [place] % (Auto) 2.0 (1-9) % Eos % (Auto) 0.1 (0-6) % Baso % (Auto) 0.4 (0-2) % Absolute Neuts (auto) 9.2 H (1.5-7.7) 10^3/ul Absolute Lymphs (auto) 0.4 L (1.0-4.8) 10^3/ul Absolute Monos (auto) 0.2 (0-0.8) 10^3/ul Absolute Eos (auto) 0 (0-0.6) 10^3/ul Absolute Basos (auto) 0 (0-0.2) 10^3/ul Absolute Nucleated RBC 0 10^3/ul Nucleated RBC % 0 INR (Anticoag Therapy) (0.89-1.11) D-Dimer, Quantitative (Less Than 230) ng/mL Sodium 141 (133-145) mmol/L Potassium 3.5 (3.5-5.0) mmol/L Chloride 110 (101-111) mmol/L Carbon Dioxide 23 (22-32) mmol/L Anion Gap 8 (2-11) mmol/L BUN 18 (6-24) mg/dL Creatinine 0.80 (0.51-0.95) mg/dL Est GFR ( Amer) 90.7 (>60) Est GFR (Non-Af Amer) 70.5 (>60) BUN/Creatinine Ratio 22.5 H (8-20) Glucose 176 H (70-100) mg/dL Lactic Acid (0.5-2.0) mmol/L Calcium 8.9 (8.6-10.3) mg/dL Total Bilirubin 0.30 (0.2-1.0) mg/dL AST 21 (13-39) U/L ALT 9 (7-52) U/L Alkaline Phosphatase 67 (34-104) U/L Troponin I 0.01 (<0.04) ng/mL C-Reactive Protein 35.75 H (< 5.00) mg/L B-Natriuretic Peptide 267 H ( - 100) pg/mL Total Protein 6.8 (6.4-8.9) g/dL Albumin 3.6 (3.2-5.2) g/dL Globulin 3.2 (2-4) g/dL Albumin/Globulin Ratio 1.1 (1-3) 05/19/17 05/19/17 Range/Units 16:15 16:15 WBC (3.5-10.8) 10^3/ul RBC (4.0-5.4) 10^6/ul Hgb (12.0-16.0) g/dl Hct (35-47) % MCV (80-97) fL MCH (27-31) pg MCHC (31-36) g/dl RDW (10.5-15) % Plt Count (150-450) 10^3/ul MPV (7.4-10.4) um3 Neut % (Auto) (38-83) % Lymph % (Auto) (25-47) % [place] % (Auto) (1-9) % Eos % (Auto) (0-6) % Baso % (Auto) (0-2) % Absolute Neuts (auto) (1.5-7.7) 10^3/ul Absolute Lymphs (auto) (1.0-4.8) 10^3/ul Absolute Monos (auto) (0-0.8) 10^3/ul Absolute Eos (auto) (0-0.6) 10^3/ul Absolute Basos (auto) (0-0.2) 10^3/ul Absolute Nucleated RBC 10^3/ul Nucleated RBC % INR (Anticoag Therapy) 0.91 (0.89-1.11) D-Dimer, Quantitative 729 H (Less Than 230) ng/mL Sodium (133-145) mmol/L Potassium (3.5-5.0) mmol/L Chloride (101-111) mmol/L Carbon Dioxide (22-32) mmol/L Anion Gap (2-11) mmol/L BUN (6-24) mg/dL Creatinine (0.51-0.95) mg/dL Est GFR ( Amer) (>60) Est GFR (Non-Af Amer) (>60) BUN/Creatinine Ratio (8-20) Glucose (70-100) mg/dL Lactic Acid 1.8 (0.5-2.0) mmol/L Calcium (8.6-10.3) mg/dL Total Bilirubin (0.2-1.0) mg/dL AST (13-39) U/L ALT (7-52) U/L Alkaline Phosphatase (34-104) U/L Troponin I (<0.04) ng/mL C-Reactive Protein (< 5.00) mg/L B-Natriuretic Peptide ( - 100) pg/mL Total Protein (6.4-8.9) g/dL Albumin (3.2-5.2) g/dL Globulin (2-4) g/dL Albumin/Globulin Ratio (1-3) Assess/Plan/Problems-Billing Assessment: Ms. Daigle is a 71 yo female with PMHx significant for chronic hypoxic respiratory failure secondary to COPD requiring 3L O2 continuously, YOLA , RA, CVA, GERD, HTN, hx DVT, and hypothyroidism who presented to the emergency room with shortness of breath and increased oxygen needs one day after discharge and tx for COPD and possible pneumonia. Pt forgot to use her 02 in AM and was found by her sister lethargic and cyanotic - Patient Problems (1) SOB (shortness of breath) Comment: And acute on chronic hypoxemic respiratory failure. appreciate DR. Santamaria's consult. Suspected RA lung involvement CTA on 05/16/17 shows significant interstitial lung disease d/w pt that we will cont prednisone and finish the outpatient course of Vantin, but it is expected that pt's dyspnea will not dramatically improve depite the treatment. She was treated with one dose of IV Lasix with no change in respiratory status at admission will ask Dr. Hughes to see pt in consult (2) COPD (chronic obstructive pulmonary disease) Comment: ? of acute exacerbation. Definetely more 02 requirement this admission-worsened likely by hypoxemia at home before admission. cont Prednisone/Vantin no significant bronchospasm on exam today (3) Hypertension Comment: BP is mildly elevated. possible mild fluid overload. Will tx with another does of IV Lasix 20 mg today (4) Hypothyroidism Comment: Continue increased dose of synthroid and recheck TSH in 4-6 weeks . (5) YOLA (obstructive sleep apnea) Comment: Continue home cpap. (6) Rheumatoid arthritis Comment: Continue plaquenil. Dr. Hughes consulted (7) DVT prophylaxis Comment: HSQ Status and Disposition: due to continuation of significant hypoxemia will place pt on inpatient status
[2017-05-20] MEDS ORDERED: Furosemide IV* 10 MG/ML 2 ML VIAL (20 MG) IV ONE (15:42)
--- NOTE | 2017-05-20 18:15 | CONSULT ---
Consult Consult: Ms. Daigle is a 71 year old woman admitted with complications of worsening interstitial lung disease. She has long standing RA (seronegative?) and has been on Plaquenil and Methotrexate. She may have RA related interstitial lung disease. I would avoid methotrexate as it may cause pulmonary toxicity. Consider switching Methotrexate to Imuran. Would check TMPT levels first. She will need a gradual steroid taper. Would not exceed dose beyond 400mg total daily Plaquenil (hydroxychlorquiine)
[2017-05-20] MEDS: Cyclobenzaprine TAB* 10 MG PO PRN (20:23)
[2017-05-20] MEDS: oxyCODONE/Acetamin 5/325 MG* TAB PO PRN (21:38)
--- NOTE | 2017-05-20 22:20 | CONS ---
CONSULTATION REPORT: DATE OF CONSULT: 05/20/17 CONSULTING PHYSICIAN: Dr. Marley. REASON FOR CONSULT: Evaluate for rheumatoid arthritis related to lung disease. HISTORY OF PRESENT ILLNESS: Ms. Daigle is a 71-year-old with a longstanding history of what appears to be a seronegative rheumatoid arthritis. She has some chronic erosive changes in the metacarpophalangeal joints as well as distal and proximal interphalangeal joints. It appears that the last time that she was in the Rheumatology Clinic with our nurse practitioner was in August. She has also had recent hip surgery and she had been on methotrexate for a long period of time, but has been off of this since her surgery given that there is some concern about possible complications of infections. She has also been on Plaquenil and she had been on intermittent doses of methotrexate. It appears that this has been since 2011. She has a history of cervical and lumbar osteoarthritis with spondylitis and a history of a rotator cuff surgery and it appears that on 12/04/13, she had been off methotrexate but then restarted it as well as low dose prednisone. There was transient improvement also with trying Xeljanz for about about a month, per my discussion with her nurse practioner. Prior to this, however, she had frequent infections after starting on Humira and had been switched to Orencia in March of 2015. She also had surgery for lumbar stenosis in February 2015 with marked improvement and neurogenic claudication, but she has chronic low back pain and leg pain as well. She also has chronic generalized body aches and joint pain at various parts of her body depending on the activity. She has also had elevated C-reactive protein levels. She had been on Orencia which was switched to Actemra. She also had a steroid injection on 07/01/16. She stopped Actemra in September and stopped all of her rheumatoid arthritis medications and restarted Celebrex on 10/19/16. On December 28, she presented with an evaluation of mouth sores with an aphthous ulcer , while Actemra was on hold. She also had significant hip pain and had the hip surgery as noted above. In a more recent history, she had a right hip arthroplasty in February of 2017. She also had chronically increased pain in her hands as well as at the [facility] joints. In terms of her recent history of leading to her hospitalization, she has a history of worsening hypoxemic respiratory failure, on chronic steroids. She also has a history of COPD and she has been on oxygen at home which has been between 3 and 4 mL. It was recently increased to 4 mL. She had been feeling worse with dyspnea on exertion. She cannot really sleep well after recent discharge and she had been feeling very fatigued and tired and wanting to fall asleep. She recently sat down on the chairs, closed her eyes and she fell asleep and then she was found hardly breathing, and 911 was called. She was stabilized with oxygen and placed on 6 L of oxygen and now is doing better, but a portable x-ray showed vascular congestions with BNP that was elevated from a 4 today at above 200. She was placed on overnight observation and she is feeling better. PAST MEDICAL HISTORY: 1. History of rheumatoid arthritis, longstanding. 2. History of COPD, on 2 to 3 L continuously, now on 5 L. 3. Also history of obstructive sleep apnea, on CPAP. 4. History of a stroke with cerebrovascular disease. 5. History of gastroesophageal reflux disease. 6. Hypertension. 7. History of provoked DVT in the past. 8. Hypothyroidism. 9. Hypertension. 10. Oophorectomy. 11. Incisional hernia repair. 12. Small bowel obstruction. 13. Back surgery and cervical spine fusion. 14. She also has a history of bunionectomy and hammertoe correction. PAST SURGICAL HISTORY: Includes a right knee and right rotator cuff repair. A hip surgery, status post implantable event monitor and history of a right hip arthroplasty. MEDICATIONS AT HOME: Include: 1. Albuterol nebulizers as needed. 2. Aspirin 81 mg daily. 3. Calcium carbonate 1 tab b.i.d. 4. Cefuroxime 200 mg b.i.d. 5. Flexeril 5 mg every 8 hours as needed. 6. Diclofenac gel as needed. 7. Estradiol patch 0.05 mg daily. 8. Fluticasone nasal spray 2 sprays both nostrils daily. 9. Advair. 10. Gabapentin 600 mg 4 times a day. 11. Plaquenil 400 mg b.i.d. 12. Iron with vitamin C b.i.d. 13. Synthroid 125 mcg daily. 14. Lisinopril 10 mg daily. 15. Methotrexate weekly, that is being held. 16. Omeprazole. 17. Pramipexole. 18. Celebrex. 19. Oxycodone as needed. 20. She has also been on prednisone 40 mg daily. FAMILY HISTORY: Notable for mother with a history of stroke and father with a history of heart disease and COPD. She has supportive daughters. SOCIAL HISTORY: She ambulates with a walker. She lives in an apartment adjacent to her sister's apartment, who helps provide supportive care. She has been overall declining slightly from a pulmonary perspective. She quit smoking in 2004. She denies any alcohol or drug use. REVIEW OF SYSTEMS: General: Notable for fatigue. Cardiac: Denies chest wall pain. Pulmonary: As noted above, but she currently denies any cough or wheezing. GI: She has had a good appetite. Denies nausea or vomiting. : She has had some sores in her mouth with one prior medication, but this has resolved. Skin: No rash. No history of psoriasis. No Raynaud's. Psychiatric : No depression. Endocrine: No glandular swelling. Hematologic: No bruising or bleeding. Other 14-point review of systems were reviewed and were otherwise negative. PHYSICAL EXAM: She had a temperature of 97.7, blood pressure 165/64 to 152/76, pulse rate of 81, and she was afebrile. In general, she is pleasant sitting up , in no acute distress with [id number] back discomfort. She was assisted back in her bed. She has a nasal cannula at 5 L. She is pleasant, in no distress. Eyes: No scleral icterus. Pupils equal, round, and reactive to light and accommodation. Extraocular movements were intact. No JVP elevation. Trachea was midline. Respiratory: Symmetric chest expansion and respiratory effort, but crackles at bases. Cardiovascular Exam: Revealed a normal S1 and S2. No murmurs, rubs, or gallops. No JVP elevation. Abdomen: Positive bowel sounds. No organomegaly. No distension. Lymph: No cervical adenopathy. Extremities: No cyanosis, clubbing or edema. Skin: No rash or ulcers. No nodules or sclerosis. Neurologic: Alert and oriented x3. Normal muscle tone and strength. Musculoskeletal: She had chronic osteoarthritic deformities in her hands with PIP joints and DIP involvement. DIAGNOSTIC STUDIES/LAB DATA: She had a chest x-ray showing interstitial changes. Hemoglobin 10.9, hematocrit 33. BUN 18, creatinine 0.8. ASSESSMENT: She is a 71-year-old woman with diffuse interstitial opacification with pulmonary interstitial edema versus chronic interstitial lung disease. At this point in time, she may have underlying interstitial lung disease from her rheumatoid arthritis to evaluate for any kind of overlap infectious organism. We will check a hypersensitivity panel as well as CMV titer given that she is immunosuppressed. Would also check an ANCA. I would also not exceed the dose of 400 mg daily of Plaquenil. Consider switching her methotrexate to Imuran which has been noted to be helpful for interstitial lung disease, but as methotrexate potentially is pulmonary toxic, would continue to follow daily. I spoke at length with the patient and her daughters regarding her condition. She has a long standing history of COPD, followed by pulmonology, but recent imaging studies have suggested a honeycombing appearance which can be seen with moderate to severe pulmonary fibrosis. I think that if her condition was entirely due to rheumatoid arthritis related lung disease, she would be strongly seropositive, and on discussion with her nurse practitioner who has been following her, she has been seronegative but with an inflammatory arthropathy. Therefore I am concerned about long standing Methotrexate use, possibly in association with physiologic stressors recently triggering significant lung disease. She is on prednisone and she should maintain this dose until she gets better stabilization of her lung function and oxygenation status. Consider checking vitamin D. In terms of steroid sparing therapy, Imuran may be a potential option for treatment if she has pulmonary fibrosis associated with a connective tissue disorder, but may not be helpful if it is idiopathic pulmonary fibrosis not in association with a connective tissue disorder, so we are also checking a CMV panel as she is immunocompromised and a connective tissue panel. Consider checking vitamin D as she will likely need long standing steroids. There was a questio of atypical pneumonia although her presentation is more consistent with a flare of interstitial lung disease. We will check a hypersensitivity pneumonitis panel. She will need close opthalmologic follow up to monitor her Plaquenil. Time spent with the patient was greater than 60 minutes with greater than 50 percent of the time counseling the patient and family and arranging care [id number]/[facility] #: [id number] DONALD
[2017-05-21] MEDS: oxyCODONE/Acetamin 5/325 MG* TAB PO PRN ×2 (02:10→16:26)
[2017-05-21] MEDS: Levothyroxine TAB* 125 MCG TAB PO SCH (06:15)
[2017-05-21] MEDS: Heparin VIAL(*) 5000 UNITS/ML VIAL (FIVE THOUSAND) SUBCUT SCH ×3 (06:15→22:02)
[2017-05-21 06:26] LABS: Hematocrit 31 % (35-47); Hemoglobin 10.3 g/dl (12.0-16.0); Mean Corpuscular HGB Conc 33 g/dl (31-36); Mean Corpuscular Hemoglobin 33 pg (27-31); Mean Corpuscular Volume 100 fL (80-97); Mean Platelet Volume 7 um3 (7.4-10.4); Red Blood Count 3.09 10^6/ul (4.0-5.4); Red Cell Distribution Width 15 % (10.5-15); White Blood Count 8.2 10^3/ul (3.5-10.8)
[2017-05-21] MEDS: traMADol TAB* 50 MG PO PRN ×3 (06:27→20:39)
[2017-05-21 06:38] LABS: BUN/Creatinine Ratio 24.7 (8-20); Calcium 8.9 mg/dL (8.6-10.3); EGFR African American 76.2 (>60); EGFR Non-African American 59.3 (>60); Potassium 3.7 mmol/L (3.5-5.0)
[2017-05-21] MEDS: CEFPODOXIME 200 MG PO SCH ×3 (06:39→22:01)
[2017-05-21] MEDS: Cyclobenzaprine TAB* 10 MG PO PRN ×2 (08:02→20:40)
[2017-05-21] MEDS: Hydroxychloroquine TAB* 200 MG PO SCH ×2 (08:03→20:39)
[2017-05-21] MEDS: Aspirin EC Low Dose* 81 MG TAB.EC PO SCH (08:04)
[2017-05-21] MEDS: Docusate CAP* 100 MG PO SCH ×2 (08:04→20:39)
[2017-05-21] MEDS: predniSONE TAB* 20 MG PO SCH (08:04)
[2017-05-21] MEDS: Omeprazole CAP* 20 MG PO SCH ×2 (08:04→20:39)
[2017-05-21] MEDS: Gabapentin CAP(*) 300 MG PO SCH ×4 (08:04→20:39)
[2017-05-21] MEDS: Lisinopril TAB* 10 MG PO SCH (08:05)
[2017-05-21] MEDS: Fluticasone NASAL SPRAY 50MCG* 16 gm SPRAY BTL BOTH NARES SCH (08:36)
[2017-05-21] MEDS: Mometasone/Formoter 200/5 MDI INH SCH ×2 (09:23→21:06)
--- NOTE | 2017-05-21 15:36 | PN ---
Subjective Date of Service: 05/21/17 Interval History: Patient seen and examined at bedside. Denies fever, chills, chest discomfort, N/ V/D. Pt states that she continues to have shortness of breath, she feels that this is worse than her baseline shortness of breath but understands that she may be near her new baseline. Alicia states that previous to the last admission she was using o2 @ 2L at rest and 3L with ambulation and she went home on 4L. She is currently requiring 5L via NC. She states that she felt confused after waking up from a nap earlier today that she didn't have her CPAP on. Family History: Unchanged from Admission Social History: Unchanged from Admission Past Medical History: Unchanged from Admission Objective Active Medications: Acetaminophen (Tylenol Tab*) 650 mg PO Q4H PRN Reason: FEVER/PAIN Albuterol (Ventolin 2.5 Mg/3 Ml Neb.Cary*) 1.25 mg INH QID PRN Reason: SHORTNESS OF BREATH Albuterol (Ventolin Hfa Inhaler*) 2 puff INH Q4HR PRN Reason: SHORTNESS OF BREATH Aspirin (Aspirin Ec Low Dose*) 81 mg PO DAILY [facility] Cefpodoxime Proxetil (Vantin (Nf)) 200 mg PO Q12H [facility] Cyclobenzaprine HCl (Flexeril Tab*) 5 mg PO Q8HR PRN Reason: SPASMS - MUSCLE Docusate Sodium (Colace Cap*) 100 mg PO BID [facility] Fluticasone Propionate (Flonase Nasal [place] 50mcg*) 2 spray BOTH NARES DAILY [facility] Gabapentin (Neurontin Cap(*)) 600 mg PO QID [facility] Heparin Sodium (Porcine) (Heparin Vial(*)) 5,000 units SUBCUT Q8HR [facility] Hydroxychloroquine Sulfate (Plaquenil Tab*) 400 mg PO BID [facility] Levothyroxine Sodium (Synthroid Tab*) 125 mcg PO 0600 [facility] Lisinopril (Prinivil Tab*) 10 mg PO QAM [facility] Mometasone Furoate/Formoterol Fumar (Dulera 200/5 Mdi*) 2 puff INH BID [facility] Omeprazole (Prilosec Cap*) 20 mg PO BID [facility] Oxycodone/Acetaminophen (Percocet 5/325 Tab*) 1 tab PO TID PRN Reason: PAIN Prednisone (Deltasone Tab*) 40 mg PO DAILY [facility] Tramadol HCl (Ultram*) 50 mg PO Q6HR PRN Reason: PAIN - ARTHRITIS Vital Signs 05/20/17 05/20/17 05/20/17 15:42 16:39 18:39 Temperature 98.3 F Pulse Rate 87 Respiratory 20 14 14 Rate Blood Pressure 133/66 (mmHg) O2 Sat by Pulse 95 Oximetry 05/20/17 05/20/17 05/20/17 20:00 20:23 20:25 Temperature 98.0 F Pulse Rate 81 Respiratory 18 20 20 Rate Blood Pressure 118/48 (mmHg) O2 Sat by Pulse 94 Oximetry 05/20/17 05/20/17 05/20/17 21:38 22:12 22:23 Temperature Pulse Rate 87 Respiratory 20 20 20 Rate Blood Pressure 120/52 (mmHg) O2 Sat by Pulse 100 Oximetry 05/20/17 05/20/17 05/21/17 23:38 23:44 02:10 Temperature Pulse Rate 77 Respiratory 20 16 20 Rate Blood Pressure 132/57 (mmHg) O2 Sat by Pulse 97 Oximetry 05/21/17 05/21/17 05/21/17 03:20 04:10 06:27 Temperature 98.1 F Pulse Rate 74 Respiratory 16 16 20 Rate Blood Pressure 154/71 (mmHg) O2 Sat by Pulse 100 Oximetry 05/21/17 05/21/17 05/21/17 08:27 08:40 10:02 Temperature Pulse Rate 82 Respiratory 16 15 Rate Blood Pressure (mmHg) O2 Sat by Pulse 96 Oximetry Oxygen Devices in Use Now: Nasal Cannula - at 5L Appearance: NAD, sitting up in a chair Ears/Nose/Mouth/Throat: Mucous Membranes Moist Respiratory: Symmetrical Chest Expansion and Respiratory Effort, Clear to Auscultation - , diminished Cardiovascular: NL Sounds; No Murmurs; No JVD, RRR Abdominal: NL Sounds; No Tenderness; No Distention Extremities: No Edema Skin: No Rash or Ulcers Neurological: Alert and Oriented x 3, NL Muscle Strength and Tone Lines/Tubes/Other Access: Clean, Dry and Intact Peripheral IV - site benign Nutrition: Taking PO's Result Diagrams: 05/21/17 06:16 05/21/17 06:15 Assess/Plan/Problems-Billing Assessment: Ms. Daigle is a 71 yo female with PMHx significant for chronic hypoxic respiratory failure secondary to COPD requiring 3L O2 continuously, YOLA, RA, CVA , GERD, HTN, hx DVT, and hypothyroidism who presented to the emergency room with shortness of breath and increased oxygen needs one day after discharge and tx for COPD and possible pneumonia. Pt forgot to use her 02 in AM and was found by her sister lethargic and cyanotic. - Patient Problems (1) SOB (shortness of breath) Code(s): R06.02 - SHORTNESS OF BREATH SNOMED Code(s): 615157187 Comment: - With acute on chronic hypoxemic respiratory failure. - Appreciate DR. Santamaria's consult. - Suspected RA lung involvement, CTA on 05/16/17 shows significant interstitial lung disease - d/w pt that we will continue prednisone and finish the outpatient course of Vantin, but it is expected that pt's dyspnea will not dramatically improve depite the treatment. - She was treated with one dose of IV Lasix with no change in respiratory status at admission - Dr. Hughes consult, appreciate input (2) COPD (chronic obstructive pulmonary disease) Code(s): J44.9 - CHRONIC OBSTRUCTIVE PULMONARY DISEASE, UNSPECIFIED SNOMED Code(s): 51385143 Comment: - ? of acute exacerbation - Requiring more 02 requirement this admission-worsened likely by hypoxemia at home before admission - No significant bronchospasm on exam today - Continue Prednisone/Vantin (3) Hypertension Code(s): I10 - ESSENTIAL (PRIMARY) HYPERTENSION SNOMED Code(s): 36608014 Comment: - BP is labile, SBP 110-150's - Suspect may be 2/2 mild fluid overload, received a dose of IV Lasix 20 mg yesterday - Continue Lisinopril (4) YOLA (obstructive sleep apnea) Code(s): G47.33 - OBSTRUCTIVE SLEEP APNEA (ADULT) (PEDIATRIC) SNOMED Code(s): 52344351 Comment: - Continue home CPAP. (5) Rheumatoid arthritis Code(s): M06.9 - RHEUMATOID ARTHRITIS, UNSPECIFIED SNOMED Code(s): 29174014 Comment: - Dr. Hughes consulted, input appreciated - Continue plaquenil - Hold methotrexate per Dr. Hughes (6) GERD (gastroesophageal reflux disease) Code(s): K21.9 - GASTRO-ESOPHAGEAL REFLUX DISEASE WITHOUT ESOPHAGITIS SNOMED Code(s): 134527936 Comment: - Continue omeprazole. (7) History of CVA (cerebrovascular accident) Code(s): Z86.73 - PRSNL HX OF TIA (TIA), AND CEREB INFRC W/O RESID DEFICITS SNOMED Code(s): 787053512 Comment: - Continue ASA (8) Hypothyroidism Code(s): E03.9 - HYPOTHYROIDISM, UNSPECIFIED SNOMED Code(s): 29080027 Comment: - TSH ~ 14 on 05/16 - Continue increased dose of synthroid and recheck TSH in 4-6 weeks . (9) DVT prophylaxis Code(s): XLQ7041 - SNOMED Code(s): 229740820 Comment: - HSQ (10) Full code status Code(s): Z78.9 - OTHER SPECIFIED HEALTH STATUS SNOMED Code(s): 355054297 Status and Disposition: Inpatient. Due to continuation of significant hypoxemia will continue to monitor. Plan to discharge to home when medically stable.
[2017-05-22] MEDS: Heparin VIAL(*) 5000 UNITS/ML VIAL (FIVE THOUSAND) SUBCUT SCH ×3 (06:01→21:57)
[2017-05-22] MEDS: Levothyroxine TAB* 125 MCG TAB PO SCH (06:36)
[2017-05-22] MEDS: Mometasone/Formoter 200/5 MDI INH SCH ×2 (08:50→19:26)
[2017-05-22] MEDS: CEFPODOXIME 200 MG PO SCH ×2 (10:26→21:57)
[2017-05-22] MEDS: Fluticasone NASAL SPRAY 50MCG* 16 gm SPRAY BTL BOTH NARES SCH (10:27)
[2017-05-22] MEDS: Gabapentin CAP(*) 300 MG PO SCH ×4 (10:27→20:39)
[2017-05-22] MEDS: Lisinopril TAB* 10 MG PO SCH (10:28)
[2017-05-22] MEDS: oxyCODONE/Acetamin 5/325 MG* TAB PO PRN ×3 (10:28→20:58)
[2017-05-22] MEDS: predniSONE TAB* 20 MG PO SCH (10:28)
[2017-05-22] MEDS: Aspirin EC Low Dose* 81 MG TAB.EC PO SCH (10:28)
[2017-05-22] MEDS: Docusate CAP* 100 MG PO SCH ×2 (10:28→20:40)
[2017-05-22] MEDS: Omeprazole CAP* 20 MG PO SCH ×2 (10:28→20:39)
[2017-05-22] MEDS: Hydroxychloroquine TAB* 200 MG PO SCH ×2 (10:36→20:40)
[2017-05-22] MEDS: Cyclobenzaprine TAB* 10 MG PO PRN (10:36)
--- NOTE | 2017-05-22 13:04 | PN ---
Subjective - Subjective History: Ms. Daigle remains chronically short of breath but she is able to ambulate more. Oxygen has been fluctuating but she has been able to decrease O2 to to 2 to 3L NC Denies significant joint inflammation but she does have chronic pain in her spine and is not very comfortable in her back when sleeping. Active Problems: Active Problems COPD (chronic obstructive pulmonary disease) (Acute) J44.9 - ? of acute exacerbation - Requiring more 02 requirement this admission- worsened likely by hypoxemia at home before admission - No significant bronchospasm on exam today - Continue Prednisone/Vantin SOB (shortness of breath) (Acute) R06.02 - With acute on chronic hypoxemic respiratory failure. - Appreciate DR. Santamaria 's consult. - Suspected RA lung involvement, CTA on 05/16/17 shows significant interstitial lung disease - d/w pt that we will continue prednisone and finish the outpatient course of Vantin, but it is expected that pt's dyspnea will not dramatically improve depite the treatment. - She was treated with one dose of IV Lasix with no change in respiratory status at admission - Dr. Hughes consult , appreciate input Current Medications: Current Medications Acetaminophen (Tylenol Tab*) 650 mg PO Q4H PRN PRN Reason: FEVER/PAIN Last Admin: 05/20/17 01:03 Dose: 650 mg Albuterol (Ventolin 2.5 Mg/3 Ml Neb.Cary*) 1.25 mg INH QID PRN PRN Reason: SHORTNESS OF BREATH Albuterol (Ventolin Hfa Inhaler*) 2 puff INH Q4HR PRN PRN Reason: SHORTNESS OF BREATH Last Admin: 05/20/17 09:51 Dose: 2 puff Aspirin (Aspirin Ec Low Dose*) 81 mg PO DAILY [facility] Last Admin: 05/22/17 10:28 Dose: 81 mg Cefpodoxime Proxetil (Vantin (Nf)) 200 mg PO Q12H [facility] Last Admin: 05/22/17 10:26 Dose: 200 mg Cyclobenzaprine HCl (Flexeril Tab*) 5 mg PO Q8HR PRN PRN Reason: SPASMS - MUSCLE Last Admin: 05/22/17 10:36 Dose: 5 mg Docusate Sodium (Colace Cap*) 100 mg PO BID [facility] Last Admin: 05/22/17 10:28 Dose: 100 mg Fluticasone Propionate (Flonase Nasal [place] 50mcg*) 2 spray BOTH NARES DAILY [facility] Last Admin: 05/22/17 10:27 Dose: 2 spray Gabapentin (Neurontin Cap(*)) 600 mg PO QID [facility] Last Admin: 05/22/17 10:27 Dose: 600 mg Heparin Sodium (Porcine) (Heparin Vial(*)) 5,000 units SUBCUT Q8HR [facility] Last Admin: 05/22/17 06:01 Dose: 5,000 units Hydroxychloroquine Sulfate (Plaquenil Tab*) 400 mg PO BID [facility] Last Admin: 05/22/17 10:36 Dose: 400 mg Levothyroxine Sodium (Synthroid Tab*) 125 mcg PO 0600 [facility] Last Admin: 05/22/17 06:36 Dose: 125 mcg Lisinopril (Prinivil Tab*) 10 mg PO QAM [facility] Last Admin: 05/22/17 10:28 Dose: 10 mg Mometasone Furoate/Formoterol Fumar (Dulera 200/5 Mdi*) 2 puff INH BID [facility] Last Admin: 05/22/17 08:50 Dose: Not Given Omeprazole (Prilosec Cap*) 20 mg PO BID [facility] Last Admin: 05/22/17 10:28 Dose: 20 mg Oxycodone/Acetaminophen (Percocet 5/325 Tab*) 1 tab PO TID PRN PRN Reason: PAIN Last Admin: 05/22/17 10:28 Dose: 1 tab Prednisone (Deltasone Tab*) 40 mg PO DAILY [facility] Last Admin: 05/22/17 10:28 Dose: 40 mg Tramadol HCl (Ultram*) 50 mg PO Q6HR PRN PRN Reason: PAIN - ARTHRITIS Last Admin: 05/21/17 20:39 Dose: 50 mg - Review of Systems Constitutional Symptoms: No: Weight Gain, Weight Loss, Weakness, Fatigue, Fever , Unexplained Falls Dermatology: Normal: Yes HEENT: Yes Normal Eyes: Positive: Normal Thyroid: Positive: Normal Pulmonary: Positive: Shortness of Breath, COPD, Home Oxygen Cardiology: Positive: Normal Gastroenterology: Positive: Normal Genital - Urinary: Positive: Normal Musculoskeletal: Positive: Joint Stiffness, Arthritis, Low Back Pain, Joint Deformities Neurology: Positive: Normal Allergic/Immunologic: Positive: Immunocompromise Home Medications: Home Medications Medication Instructions Recorded Confirmed Type Gabapentin CAP(*) [Neurontin 300 600 mg PO QID 03/09/13 05/20/17 History CAP(*)] Hydroxychloroquine TAB* [Plaquenil 400 mg PO BID 03/09/13 05/20/17 History TAB*] Omeprazole CAP* [Prilosec CAP* 20 20 mg PO BID 03/09/13 05/20/17 History MG] Aspirin EC Low Dose* [Ecotrin EC 81 mg PO DAILY 09/12/15 05/20/17 History Low Dose 81 MG*] Estradiol PATCH 0.05MG/DAY* 0.05 mg TOPICAL .TWICE WEEKLY 02/15/17 05/20/17 History [[place] PATCH 0.05 MG/DAY*] Fluticasone-Salmeterol 500-50* 1 puff INH BID 02/15/17 05/20/17 History [Advair Diskus 500-50*] Iron-Vitamin C [Iron 100/C 100-250 1 tab PO BID 02/15/17 05/20/17 History mg] Pramipexole Dihydrochloride 0.125 mg PO SEE INSTRUCTIONS 02/15/17 05/20/17 History [Pramipexole Dihydrochlori] Docusate CAP* [Colace Cap*] 100 mg PO BID cap 03/01/17 05/20/17 Rx Albuterol Sulfate 1.25 mg INH QID PRN 05/16/17 05/20/17 History Albuterol inh POWDER (NF) [Proair 1 - 2 puff INH Q4HR PRN 05/16/17 05/20/17 History Respiclick] Calcium Carbonate-Cholecalcife 1 tab PO BID 05/16/17 05/20/17 History [Calcium 600 + D 600-200 mg-Unit] Cetirizine* [ZyrTEC 10 MG TAB*] 10 mg PO QPM 05/16/17 05/20/17 History Cyclobenzaprine TAB* [Flexeril 10 5 mg PO Q8HR PRN 05/16/17 05/20/17 History MG TAB*] Diclofenac 1% GEL (NF) [Voltaren 1 applic TOPICAL BID PRN 05/16/17 05/20/17 History 1% GEL (NF)] Fluticasone NASAL SPRAY 50MCG* 2 spray BOTH NARES DAILY 05/16/17 05/20/17 History [Flonase NASAL SPRAY 50MCG*] celeCOXIB CAP* [Celebrex CAP*] 200 mg PO BID 05/16/17 05/20/17 History oxyCODONE/Acetamin 5/325 MG* 1 tab PO .BID-TID PRN 05/16/17 05/20/17 History [Percocet 5/325 TAB*] traMADol TAB* [Ultram*] 50 - 100 mg PO Q6HR PRN MDD 600 mg 05/16/17 05/20/17 History Cefpodoxime (NF) [Vantin 200 MG 200 mg PO Q12H #8 tab 05/18/17 05/20/17 Rx TAB (NF)] Levothyroxine TAB* [Synthroid 125 125 mcg PO 0600 #30 tab 05/18/17 05/20/17 Rx MCG TAB*] Lisinopril TAB* [Prinivil TAB 10 10 mg PO QAM tab 05/18/17 05/20/17 Rx MG*] Methotrexate TAB* 15 mg PO WEEKLY #0 05/18/17 05/20/17 Rx predniSONE TAB* [Deltasone TAB*] 40 mg PO DAILY #20 tab 05/18/17 05/20/17 Rx Allergies: Allergies Allergy/AdvReac Type Severity Reaction Status Date / Time Amoxicillin [From Augmentin] Allergy Severe Difficulty Verified 05/17/17 16:16 Breathing Clavulanic Acid Allergy Severe Difficulty Verified 05/17/17 16:16 [From Augmentin] Breathing Erythromycin Allergy Intermediate Rash Verified 05/17/17 16:16 Latex Allergy Intermediate Rash Verified 05/17/17 16:16 Aminophylline Allergy Mild Rash Verified 05/17/17 16:16 Atorvastatin [From Lipitor] Allergy Stomach Verified 05/17/17 16:16 Cramps Epinephrine Allergy Rash Verified 05/19/17 19:14 Nystatin [From Mycolog-II] Allergy Unknown Verified 05/19/17 19:12 Reaction Details Pravastatin Allergy Stomach Verified 05/17/17 16:16 Cramps Triamcinolone Allergy Unknown Verified 05/19/17 19:11 [From Mycolog-II] Reaction Details ADHESIVE TAPE Allergy Intermediate Blisters Uncoded 05/17/17 16:16 ANTINFLAMMATORY Allergy Mild GI Upset Uncoded 05/17/17 16:16 Objective - Vital Signs Vital Signs: Vital Signs 05/21/17 05/21/17 05/21/17 14:27 14:28 15:17 Temperature 98.1 F Pulse Rate 94 Respiratory 20 20 24 Rate Blood Pressure 142/109 (mmHg) O2 Sat by Pulse 93 Oximetry 05/21/17 05/21/17 05/21/17 16:26 16:27 16:28 Temperature Pulse Rate Respiratory 16 16 16 Rate Blood Pressure (mmHg) O2 Sat by Pulse Oximetry 05/21/17 05/21/17 05/21/17 18:26 19:50 20:00 Temperature 97.2 F Pulse Rate 73 Respiratory 16 20 18 Rate Blood Pressure 120/68 (mmHg) O2 Sat by Pulse 98 Oximetry 05/21/17 05/21/17 05/21/17 20:39 20:40 22:39 Temperature Pulse Rate Respiratory 17 17 17 Rate Blood Pressure (mmHg) O2 Sat by Pulse Oximetry 05/21/17 05/21/17 05/22/17 22:40 23:32 00:00 Temperature Pulse Rate 71 Respiratory 17 16 18 Rate Blood Pressure 125/56 (mmHg) O2 Sat by Pulse 97 Oximetry 05/22/17 05/22/17 05/22/17 02:00 03:39 07:52 Temperature 97.5 F Pulse Rate 72 69 Respiratory 18 16 18 Rate Blood Pressure 128/55 120/53 (mmHg) O2 Sat by Pulse 98 96 Oximetry 05/22/17 05/22/17 05/22/17 08:00 08:49 10:27 Temperature Pulse Rate Respiratory 16 16 Rate Blood Pressure (mmHg) O2 Sat by Pulse 98 Oximetry 05/22/17 05/22/17 10:28 10:36 Temperature Pulse Rate Respiratory 16 16 Rate Blood Pressure (mmHg) O2 Sat by Pulse Oximetry - Intake and Output Intake and Output: Intake & Output 05/20/17 05/21/17 05/22/17 05/23/17 06:59 06:59 06:59 06:59 Intake Total 512 1160 470 Output Total 2950 2300 Balance -2438 -1140 470 Weight 157 lb 11.2 oz 159 lb 8 oz Intake: IV Fluids 2 Oral 510 1160 470 Output: Urine 2950 2300 Other: # Bowel Movements 0 0 # Voids 4 ADLs: Meal Record Start: 05/19/17 19: 10 Freq: DAILY@0900,1400,1800 Status: Active Created 05/19/17 19:10 System (Rec: 05/19/17 19:10 System MED-C15) Document 05/20/17 18:00 [id number] (Rec: 05/20/17 18:27 [id number] MED-C09) Document 05/21/17 09:00 [id number] (Rec: 05/21/17 10:10 [id number] MED-C09) Document 05/21/17 14:00 [id number] (Rec: 05/21/17 14:36 [id number] MED-C11) Document 05/21/17 18:00 [id number] (Rec: 05/21/17 21:39 [id number] MED-C11) Document 05/22/17 09:00 [id number] (Rec: 05/22/17 12:35 [id number] MED-C09) Intake and Output Start: 05/19/17 15: 38 Freq: Status: Active Created 05/19/17 15:38 System (Rec: 05/19/17 15:38 System ED-C24) Intake and Output Start: 05/19/17 19: 10 Freq: DAILY@0600,1400,2200 Status: Active Created 05/19/17 19:10 System (Rec: 05/19/17 19:10 System MED-C15) Document 05/19/17 22:00 [id number] (Rec: 05/19/17 22:33 [id number] MED-C09) Document 05/20/17 05:11 [id number] (Rec: 05/20/17 05:11 [id number] MED-C26) Document 05/20/17 14:00 [id number] (Rec: 05/20/17 19:35 [id number] MED-C15) Document 05/20/17 21:41 [id number] (Rec: 05/20/17 21:46 [id number] MED-C09) Document 05/20/17 21:54 [id number] (Rec: 05/20/17 21:54 [id number] MED-C09) Document 05/21/17 06:00 [id number] (Rec: 05/21/17 06:18 [id number] MED-C26) Document 05/21/17 14:00 [id number] (Rec: 05/21/17 14:35 [id number] MED-C11) Document 05/21/17 20:45 [id number] (Rec: 05/21/17 20:45 [id number] MED-M20) Document 05/21/17 21:39 [id number] (Rec: 05/21/17 21:44 [id number] MED-C11) Document 05/21/17 22:06 [id number] (Rec: 05/21/17 22:06 [id number] MED-M20) Document 05/22/17 04:08 [id number] (Rec: 05/22/17 04:08 [id number] MED-C26) Document 05/22/17 06:00 [id number] (Rec: 05/22/17 06:28 [id number] MED-C09) - Physical Exam General Physical Exam Comment: No acute distress; sitting up; able to ambulate Eye Exam: bilateral: PERRLA Head: Yes Normocephalic Thyroid Function: Clinically Euthyroid Lungs and Chest: Yes: Chest Expansion Full, Chest Expansion Symetrica, Percussion Note Resonant, Crackles Heart Rate and Rhythm: Regular JVP: Not Elevated [place] Beat: Non Displaced Additional Cardiovascular: Yes: [place] Beat not Displaced, Normal Heart Sounds Abdominal Exam: Yes: Soft - Rheumotological System Joints: Joint Deformities, Signs of Connective Tissue Disease - Extremities Posterior Tibial Pulse: Bilateral Normal Hematology: No Supraclavicular Adenopathy - Neuro Psychiatric: Normal Speech: Normal Assessment - Problem List Assessment: Patient Problems COPD (chronic obstructive pulmonary disease) (Acute) SOB (shortness of breath) (Acute) MYESHA (acute kidney injury) (Acute) COPD exacerbation (Acute) DVT prophylaxis (Acute) Full code status (Acute) PNA (pneumonia) (Acute) Status post right hip replacement (Acute) GERD (gastroesophageal reflux disease) (Chronic) History of CVA (cerebrovascular accident) (Chronic) Hypertension (Chronic) Hypothyroidism (Chronic) YOLA (obstructive sleep apnea) (Chronic) Rheumatoid arthritis (Chronic) Plan: Interstitial Lung Disease: she is on oxygen, supportive care and Prednisone 40mg daily. Consider adding Imuran, which may help ILD, but her connective tissue panel is pending and TMPT gene assay is pending Possible pulmonary Fibrosis: would avoid Methotrexate. RA: On low dose Plaquenil; avoid greater than 400mg daily. Follow up inflammatory markers and serologies that were ordered. She is also immunocompromised and will need a yearly flu vaccine; pneumococcal vaccine and Prevnar should be done if not already done Will follow
--- NOTE | 2017-05-22 15:20 | PN ---
Subjective Date of Service: 05/22/17 Interval History: Patient seen and examined at bedside. Patient down to 2L but still doesn't quite feel like she is at her baseline. Denies cough. Has not yet ambulated with oxygen today. Family History: Unchanged from Admission Social History: Unchanged from Admission Past Medical History: Unchanged from Admission Objective Active Medications: Acetaminophen (Tylenol Tab*) 650 mg PO Q4H PRN Albuterol (Ventolin 2.5 Mg/3 Ml Neb.Cary*) 1.25 mg INH QID PRN Albuterol (Ventolin Hfa Inhaler*) 2 puff INH Q4HR PRN Aspirin (Aspirin Ec Low Dose*) 81 mg PO DAILY [facility] Cefpodoxime Proxetil (Vantin (Nf)) 200 mg PO Q12H [facility] Cyclobenzaprine HCl (Flexeril Tab*) 5 mg PO Q8HR PRN Docusate Sodium (Colace Cap*) 100 mg PO BID [facility] Fluticasone Propionate (Flonase Nasal [place] 50mcg*) 2 spray BOTH NARES DAILY [facility] Gabapentin (Neurontin Cap(*)) 600 mg PO QID [facility] Heparin Sodium (Porcine) (Heparin Vial(*)) 5,000 units SUBCUT Q8HR [facility] Hydroxychloroquine Sulfate (Plaquenil Tab*) 200 mg PO BID [facility] Levothyroxine Sodium (Synthroid Tab*) 125 mcg PO 0600 [facility] Lisinopril (Prinivil Tab*) 10 mg PO QAM [facility] Mometasone Furoate/Formoterol Fumar (Dulera 200/5 Mdi*) 2 puff INH BID [facility] Omeprazole (Prilosec Cap*) 20 mg PO BID [facility] Oxycodone/Acetaminophen (Percocet 5/325 Tab*) 1 tab PO TID PRN Prednisone (Deltasone Tab*) 40 mg PO DAILY [facility] Tramadol HCl (Ultram*) 50 mg PO Q6HR PRN Vital Signs 05/21/17 05/21/17 05/21/17 15:17 16:26 16:27 Temperature 98.1 F Pulse Rate 94 Respiratory 24 16 16 Rate Blood Pressure 142/109 (mmHg) O2 Sat by Pulse 93 Oximetry 05/21/17 05/21/17 05/21/17 16:28 18:26 19:50 Temperature 97.2 F Pulse Rate 73 Respiratory 16 16 20 Rate Blood Pressure 120/68 (mmHg) O2 Sat by Pulse 98 Oximetry 05/21/17 05/21/17 05/21/17 20:00 20:39 20:40 Temperature Pulse Rate Respiratory 18 17 17 Rate Blood Pressure (mmHg) O2 Sat by Pulse Oximetry 05/21/17 05/21/17 05/21/17 22:39 22:40 23:32 Temperature Pulse Rate 71 Respiratory 17 17 16 Rate Blood Pressure 125/56 (mmHg) O2 Sat by Pulse 97 Oximetry 05/22/17 05/22/17 05/22/17 00:00 02:00 03:39 Temperature Pulse Rate 72 Respiratory 18 18 16 Rate Blood Pressure 128/55 (mmHg) O2 Sat by Pulse 98 Oximetry 05/22/17 05/22/17 05/22/17 07:52 08:00 08:49 Temperature 97.5 F Pulse Rate 69 Respiratory 18 16 Rate Blood Pressure 120/53 (mmHg) O2 Sat by Pulse 96 98 Oximetry 05/22/17 05/22/17 05/22/17 10:27 10:28 10:36 Temperature Pulse Rate Respiratory 16 16 16 Rate Blood Pressure (mmHg) O2 Sat by Pulse Oximetry 05/22/17 05/22/17 05/22/17 12:28 13:42 13:45 Temperature 98.1 F Pulse Rate 88 Respiratory 18 26 18 Rate Blood Pressure 106/31 (mmHg) O2 Sat by Pulse 98 Oximetry 05/22/17 14:10 Temperature Pulse Rate Respiratory Rate Blood Pressure 108/38 (mmHg) O2 Sat by Pulse Oximetry Oxygen Devices in Use Now: Nasal Cannula - at 5L Appearance: sitting up in bed, NAD Eyes: No Scleral Icterus, PERRLA Ears/Nose/Mouth/Throat: NL Teeth, Lips, Gums Neck: NL Appearance and Movements; NL JVP Respiratory: Symmetrical Chest Expansion and Respiratory Effort, Clear to Auscultation Cardiovascular: NL Sounds; No Murmurs; No JVD Abdominal: NL Sounds; No Tenderness; No Distention Extremities: No Edema Skin: No Rash or Ulcers Neurological: Alert and Oriented x 3, NL Muscle Strength and Tone Lines/Tubes/Other Access: Clean, Dry and Intact Peripheral IV Result Diagrams: 05/21/17 06:16 05/21/17 06:15 Assess/Plan/Problems-Billing Ms. Daigle is a 71 yo female with PMHx significant for chronic hypoxic respiratory failure secondary to COPD requiring 3L O2 continuously, YOLA, RA, CVA , GERD, HTN, hx DVT, and hypothyroidism who presented to the emergency room with shortness of breath and increased oxygen needs one day after discharge and tx for COPD and possible pneumonia. Pt forgot to use her 02 in AM and was found by her sister lethargic and cyanotic. - Patient Problems (1) Acute hypoxemic respiratory failure Comment: Appreciate both rhematology and pulmonology input. CTA from 05/16 shows interstitial lung disease which looks like pulmonary fibrosis. This could be idiopathic or from a connective tissue disorder and serologies pending. Plan for long steroid course and the possible addition of Imuran if it looks like it is associated with a connective tissue disorder. Likely this is the patient's new baseline. (2) COPD (chronic obstructive pulmonary disease) Comment: Not in acute exacerbation. Down to 2L oxygen (baseline). Continue Advair and Albuterol. Appreciate pulmonology input. Will continue Prednisone and plan to taper by 5mg every 2 weeks with close outpatient follow-up. (3) Rheumatoid arthritis Comment: Appreciate input from rheumatology. Continue Plaquenil at lower dose. Will not restart mehotrexate. Awaiting connective tissue serologies to decide about starting Imuran. Will need yearly flu, pneumococcal and Prevnar vaccines due to immunocompromised state. (4) GERD (gastroesophageal reflux disease) Comment: Continue omeprazole. (5) History of CVA (cerebrovascular accident) Comment: Continue ASA (6) Hypertension Comment: Controlled; Continue Lisinopril. Received Lasix earlier in hospitalization. (7) Hypothyroidism Comment: Continue increased dose of synthroid and recheck TSH in 4-6 weeks . (8) YOLA (obstructive sleep apnea) Comment: Continue home CPAP at night. (9) DVT prophylaxis Comment: SQ Heparin (10) Full code status Status and Disposition: Inpatient. Will ambulate with Oxygen. PLan to try and discharge home tomorrow. Will ask OT to eval for home safety..
[2017-05-22] MEDS ORDERED: Pramipexole TAB* 0.125 MG PO PRN ×2 (16:11→17:01)
[2017-05-22 16:53] LABS: Micropolyspora faeni IgG Ab <2.0 mg/L (<=13.2); Thermoactinomyces vulgaris IgG 5.7 mg/L (<=23.9)
[2017-05-22] MEDS ORDERED: Pramipexole TAB* 0.125 MG PO SCH (21:00)
[2017-05-23] MEDS: Acetaminophen TAB* 325 MG PO PRN (04:52)
[2017-05-23] MEDS: oxyCODONE/Acetamin 5/325 MG* TAB PO PRN ×2 (05:47→13:22)
[2017-05-23] MEDS: Levothyroxine TAB* 125 MCG TAB PO SCH (05:47)
[2017-05-23] MEDS: Heparin VIAL(*) 5000 UNITS/ML VIAL (FIVE THOUSAND) SUBCUT SCH ×2 (05:47→14:06)
[2017-05-23] MEDS: Mometasone/Formoter 200/5 MDI INH SCH (07:58)
[2017-05-23] MEDS: Aspirin EC Low Dose* 81 MG TAB.EC PO SCH (10:50)
[2017-05-23] MEDS: Fluticasone NASAL SPRAY 50MCG* 16 gm SPRAY BTL BOTH NARES SCH (10:50)
[2017-05-23] MEDS: Hydroxychloroquine TAB* 200 MG PO SCH (10:50)
[2017-05-23] MEDS: Gabapentin CAP(*) 300 MG PO SCH ×2 (10:50→14:05)
[2017-05-23] MEDS: Omeprazole CAP* 20 MG PO SCH (10:51)
[2017-05-23] MEDS: Docusate CAP* 100 MG PO SCH (10:51)
[2017-05-23] MEDS: Lisinopril TAB* 10 MG PO SCH (10:51)
[2017-05-23] MEDS: predniSONE TAB* 20 MG PO SCH (10:51)
[2017-05-23] MEDS: CEFPODOXIME 200 MG PO SCH (10:52)
[2017-05-23] MEDS: Cyclobenzaprine TAB* 10 MG PO PRN (11:06)
[2017-05-23] MEDS: traMADol TAB* 50 MG PO PRN (11:12)
--- NOTE | 2017-05-23 11:20 | DCNOTE ---
Subjective Date of Service: 05/23/17 Interval History: Patient seen and examined at bedside. Patient still having dyspnea when ambuating. With Oxgygen up to 5L during activity, she can keep her saturations above 90%. HR does rise during activity. OT recommending VNS for home. Family History: Unchanged from Admission Social History: Unchanged from Admission Past Medical History: Unchanged from Admission Objective Active Medications: Acetaminophen (Tylenol Tab*) 650 mg PO Q4H PRN Albuterol (Ventolin 2.5 Mg/3 Ml Neb.Cary*) 1.25 mg INH QID PRN Albuterol (Ventolin Hfa Inhaler*) 2 puff INH Q4HR PRN Aspirin (Aspirin Ec Low Dose*) 81 mg PO DAILY MATIAS Cefpodoxime Proxetil (Vantin (Nf)) 200 mg PO Q12H MATIAS Cyclobenzaprine HCl (Flexeril Tab*) 5 mg PO Q8HR PRN Docusate Sodium (Colace Cap*) 100 mg PO BID MATIAS Fluticasone Propionate (Flonase Nasal [place] 50mcg*) 2 spray BOTH NARES DAILY MATIAS Gabapentin (Neurontin Cap(*)) 600 mg PO QID MATIAS Heparin Sodium (Porcine) (Heparin Vial(*)) 5,000 units SUBCUT Q8HR MATIAS Hydroxychloroquine Sulfate (Plaquenil Tab*) 200 mg PO BID MATIAS Levothyroxine Sodium (Synthroid Tab*) 125 mcg PO 0600 MATIAS Lisinopril (Prinivil Tab*) 10 mg PO QAM MATIAS Mometasone Furoate/Formoterol Fumar (Dulera 200/5 Mdi*) 2 puff INH BID MATIAS Omeprazole (Prilosec Cap*) 20 mg PO BID MATIAS Oxycodone/Acetaminophen (Percocet 5/325 Tab*) 1 tab PO TID PRN Pramipexole Dihydrochloride (Mirapex Tab*) 0.25 mg PO 1700 PRN Prednisone (Deltasone Tab*) 40 mg PO DAILY MATIAS Tramadol HCl (Ultram*) 50 mg PO Q6HR PRN Vital Signs 05/22/17 05/22/17 05/22/17 12:28 13:42 13:45 Temperature 98.1 F Pulse Rate 88 Respiratory 18 26 18 Rate Blood Pressure 106/31 (mmHg) O2 Sat by Pulse 98 Oximetry 05/22/17 05/22/17 05/22/17 14:10 17:06 19:06 Temperature Pulse Rate Respiratory 20 17 Rate Blood Pressure 108/38 (mmHg) O2 Sat by Pulse Oximetry 05/22/17 05/22/17 05/22/17 19:16 19:27 20:00 Temperature 97.8 F Pulse Rate 88 Respiratory 20 19 Rate Blood Pressure 101/46 (mmHg) O2 Sat by Pulse 92 92 Oximetry 05/22/17 05/22/17 05/22/17 20:39 20:58 22:39 Temperature Pulse Rate Respiratory 17 19 16 Rate Blood Pressure (mmHg) O2 Sat by Pulse Oximetry 05/22/17 05/22/17 05/23/17 22:58 23:26 02:29 Temperature Pulse Rate 78 Respiratory 16 16 Rate Blood Pressure 134/56 (mmHg) O2 Sat by Pulse 94 94 Oximetry 05/23/17 05/23/17 05/23/17 02:57 05:47 07:35 Temperature 97.8 F 97.3 F Pulse Rate 77 88 Respiratory 16 17 22 Rate Blood Pressure 138/53 143/68 (mmHg) O2 Sat by Pulse 94 96 Oximetry 05/23/17 05/23/17 05/23/17 07:47 10:50 11:06 Temperature Pulse Rate Respiratory 18 22 22 Rate Blood Pressure (mmHg) O2 Sat by Pulse Oximetry 05/23/17 11:12 Temperature Pulse Rate Respiratory 22 Rate Blood Pressure (mmHg) O2 Sat by Pulse Oximetry Oxygen Devices in Use Now: Nasal Cannula - at 5L Appearance: sitting up in bed, NAD Eyes: No Scleral Icterus, PERRLA Ears/Nose/Mouth/Throat: NL Teeth, Lips, Gums Neck: NL Appearance and Movements; NL JVP Respiratory: Symmetrical Chest Expansion and Respiratory Effort, - - dimished Cardiovascular: NL Sounds; No Murmurs; No JVD Abdominal: NL Sounds; No Tenderness; No Distention Extremities: No Edema Skin: No Rash or Ulcers Neurological: Alert and Oriented x 3, NL Muscle Strength and Tone Lines/Tubes/Other Access: Clean, Dry and Intact Peripheral IV Nutrition: Taking PO's Result Diagrams: 05/21/17 06:16 05/21/17 06:15 Assess/Plan/Problems-Billing Ms. Daigle is a 71 yo female with PMHx significant for chronic hypoxic respiratory failure secondary to COPD requiring 3L O2 continuously, YOLA, RA, CVA , GERD, HTN, hx DVT, and hypothyroidism who presented to the emergency room with shortness of breath and increased oxygen needs one day after discharge and tx for COPD and possible pneumonia. Pt forgot to use her 02 in AM and was found by her sister lethargic and cyanotic. - Patient Problems (1) Acute hypoxemic respiratory failure (2) COPD (chronic obstructive pulmonary disease) (3) Rheumatoid arthritis (4) GERD (gastroesophageal reflux disease) (5) History of CVA (cerebrovascular accident) (6) Hypertension (7) Hypothyroidism (8) YOLA (obstructive sleep apnea) Comment: Continue home CPAP at night. (9) DVT prophylaxis (10) Full code status Status and Disposition: Inpatient. Stable to be discharged home with long steroid taper and close rheumatology and pulmonology follow-up.
[2017-05-23 12:17] VITALS: BP 123/58
--- NOTE | 2017-05-23 13:10 | PN ---
Progress Note - Progress Note Date of Service: 05/23/17 - Pulm f/u note Note: Pt seen and examined at bedside. Pt rpeorts improvement inbreathing. ALso reports that she is being d/c ed home today. Reprots waking up with dry mouth and gasping last night while on CPAP. Has been having dry mouth for few days. Active Medications Generic Name Dose Route Start Last Admin Trade Name Freq PRN Reason Stop Dose Admin Acetaminophen 650 mg 05/19/17 18:35 05/23/17 04:52 Tylenol Tab* PO 650 mg Q4H PRN Administration FEVER/PAIN Albuterol 1.25 mg 05/19/17 18:36 Ventolin 2.5 Mg/3 Ml Neb.Cary* INH QID PRN SHORTNESS OF BREATH Albuterol 2 puff 05/19/17 18:36 05/20/17 09:51 Ventolin Hfa Inhaler* INH 2 puff Q4HR PRN Administration SHORTNESS OF BREATH Aspirin 81 mg 05/20/17 09:00 05/23/17 10:50 Aspirin Ec Low Dose* PO 81 mg DAILY MATIAS Administration Cyclobenzaprine HCl 5 mg 05/19/17 18:36 05/23/17 11:06 Flexeril Tab* PO 5 mg Q8HR PRN Administration SPASMS - MUSCLE Docusate Sodium 100 mg 05/19/17 21:00 05/23/17 10:51 Colace Cap* PO 100 mg BID MATIAS Administration Fluticasone Propionate 2 spray 05/20/17 09:00 05/23/17 10:50 Flonase Nasal [place] 50mcg* BOTH NARES 2 spray DAILY MATIAS Administration Gabapentin 600 mg 05/19/17 21:00 05/23/17 10:50 Neurontin Cap(*) PO 600 mg QID MATIAS Administration Heparin Sodium (Porcine) 5,000 units 05/19/17 22:00 05/23/17 05:47 Heparin Vial(*) SUBCUT 5,000 units Q8HR MATIAS Administration Hydroxychloroquine Sulfate 200 mg 05/22/17 21:00 05/23/17 10:50 Plaquenil Tab* PO 200 mg BID MATIAS Administration Levothyroxine Sodium 125 mcg 05/20/17 06:00 05/23/17 05:47 Synthroid Tab* PO 125 mcg 0600 MATIAS Administration Lisinopril 10 mg 05/20/17 09:00 10/05/17 10:51 Prinivil Tab* PO 10 mg QAM MATIAS Administration Mometasone Furoate/Formoterol Fumar 2 puff 05/19/17 21:00 05/23/17 07:58 Dulera 200/5 Mdi* INH Not Given BID MATIAS Omeprazole 20 mg 05/19/17 21:00 05/23/17 10:51 Prilosec Cap* PO 20 mg BID MATIAS Administration Oxycodone/Acetaminophen 1 tab 05/20/17 16:31 05/23/17 05:47 Percocet 5/325 Tab* PO 1 tab TID PRN Administration PAIN Pramipexole Dihydrochloride 0.25 mg 05/22/17 17:01 05/22/17 17:19 Mirapex Tab* PO 0.125 mg 1700 PRN Administration cramping Prednisone 40 mg 05/20/17 09:00 05/23/17 10:51 Deltasone Tab* PO 40 mg DAILY MATIAS Administration Tramadol HCl 50 mg 05/19/17 18:36 05/23/17 11:12 Ultram* PO 50 mg Q6HR PRN Administration PAIN - ARTHRITIS Vital Signs Temp Pulse Resp BP Pulse Ox 98.0 F 113 22 123/58 97 05/23/17 10:58 05/23/17 10:58 05/23/17 11:12 05/23/17 10:58 05/23/17 10:58 Gen: Pt sitting up in bed eating lunch, in NAD HEENT: No Scleral Icterus, PERRLA, NL Teeth, Lips, Gums Neck: NL Appearance and Movements; NL JVP Respiratory: Symmetrical Chest Expansion and Respiratory Effort, Clear to Auscultation Cardiovascular: NL Sounds; No Murmurs; No JVD Abdominal: NL Sounds; No Tenderness; No Distention Extremities: No Edema Skin: No Rash or Ulcers Neurological: Alert and Oriented x 3, NL Muscle Strength and Tone Laboratory Results - last 24 hr 05/19/17 16:15 Cyclic Citrull Peptide <15.6 Anti-Nuclear Antibody 0.4 MIHAI Interpretation See comment CMV IgG Ab Negative CMV IgM Ab Negative T. vulgaris IgG Ab 5.7 A. fumigatus IgG Ab 21.1 M. 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 P responded to Lasix and steroids. Would recommend longer prednisone taper. Pt was seen by Dr Saenz with plant o start Imuran which should also help with management of her pulmonary disease. Currently stable on 3L O2. Discussed increasing O2 with exertion and monitoring pulse-ox closely She has sero negative RA SHe was also treated with bronchodilators. She has been complaining of dry m outh and waking up with gasping last night Checked her CPAP, AHI around 2.3 last night, used for 2 hrs. Increased humidity setting on her PAP. Will f/u in clinic in 2-3 weeks D/w Miya Cabrera
--- NOTE | 2017-05-24 01:04 | DS ---
CC: Dr. Reinoso; Dr. Hughes; Dr. Santamaria * DISCHARGE SUMMARY: DATE OF ADMISSION: 05/19/17 DATE OF DISCHARGE: 05/23/17 PRIMARY CARE PHYSICIAN: Dr. Reinoso. CONSULTATIONS WHILE IN THE HOSPITAL: 1. Dr. Santamaria, Pulmonology. 2. Dr. Hughes, Rheumatology. ATTENDING PHYSICIAN: Aj Oglesby MD * (report dictated by Miya Cabrera NP). PRIMARY DIAGNOSES: 1. Acute on chronic hypoxemic respiratory failure. 2. Chronic obstructive pulmonary disease. 3. Rheumatoid arthritis. SECONDARY DIAGNOSES: 1. Obstructive sleep apnea, on CPAP. 2. Hypertension. 3. Deep vein thrombosis in the past. 4. Hypothyroidism. 5. Gastroesophageal reflux disease. 6. Hypertension. MEDICATIONS AT DISCHARGE: New medication: Prednisone 20 mg and 10 mg tablets. The patient has been instructed to do a very extended taper, taking 40 mg for 2 weeks, 35 mg for 2 weeks, 30 mg for 2 weeks, 25 mg for 2 weeks, 20 mg for 2 weeks, 15 mg for 2 weeks, 10 mg for 2 weeks, 5 mg for 2 weeks, then stop. Changed medication: Plaquenil, it has been decreased to 200 mg oral twice daily. The patient's Vantin has been discontinued. The following medications are all medications the patient came in on and will be continued at discharge: 1. Neurontin 600 mg oral 4 times daily. 2. Prilosec 20 mg oral twice daily. 3. Aspirin 81 mg oral daily. 4. Estradiol 0.5 mg topical twice weekly. 5. Iron with vitamin C 1 tablet oral twice daily. 6. Pramipexole 0.125 mg 1 or 2 tablets at 5 p.m. as needed. 7. Advair 500/50 one puff inhaled twice daily. 8. Colace 100 mg oral twice daily. 9. Celebrex 200 mg oral twice daily. 10. Calcium 600 with vitamin D 1 tablet oral twice daily. 11. ProAir RespiClick 1 to 2 puffs inhaled every 4 hours as needed. 12. Zyrtec 10 mg oral daily. 13. Flexeril 10 mg oral every 8 hours as needed for spasms. 14. Fluticasone 2 sprays both nares daily. 15. Voltaren gel 1 application topical twice daily as needed. 16. Percocet 5/325 one tablet oral 2 to 3 times daily as needed. 17. Albuterol sulfate nebulizer 4 times daily as needed. 18. Tramadol 50 to 100 mg oral every 6 hours as needed, not to exceed 600 mg per day. 19. Synthroid 125 mcg daily. 20. Lisinopril 10 mg oral in the morning. STUDIES WHILE IN THE HOSPITAL: Chest x-ray, 05/19/17: Again noted is diffuse interstitial opacification. The differential includes pulmonary interstitial edema versus chronic interstitial lung disease. HISTORY OF PRESENT ILLNESS AND HOSPITAL COURSE: Ms. Daigle is a 71-year-old female with past medical history significant for COPD and rheumatoid arthritis, on long-term methotrexate therapy, who was recently admitted to our institution and returned shortly after discharge. The patient was at home and took her oxygen off while getting dressed and forgot to put it back on. She was found by her sister to be cyanotic with a very low oxygen saturation. With replacement of oxygen, her oxygen saturation recovered back to the 90s. The patient was admitted to the medical floor and continued on all of her medications for COPD. She was placed on prednisone at 40 mg. She was allowed to complete her Vantin course. She was seen by Dr. Santamaria here in the hospital. Please refer to Dr. Santamaria's dictation for detail. Additionally, she was also seen by Dr. Hughes from Rheumatology. The patient had a scan prior to her previous admission that showed diffuse interstitial changes in her bilateral lower lungs. This could be pulmonary fibrosis or rheumatoid lung disease. That is the reason Dr. Hughes was consulted. Multiple lab tests were sent out and methotrexate was stopped. Rheumatology felt that it was likely that methotrexate has caused the fibrotic changes in her lungs. There are still some tests pending at discharge and the patient will follow up with Rheumatology. Depending on the outcome of the tests, you may start Humira especially if this is found to be fibrosis with a connective tissue disorder versus idiopathic pulmonary fibrosis. The patient was gradually weaned down to her oxygen to 2 L at baseline. Still during activity, the patient must increase her oxygen up to 5 L both before and after activity. With these adjustments, the patient was able to ambulate and provide care for herself and was deemed stable to be discharged home. In addition to holding the methotrexate, recommendations from Rheumatology were to decrease the Plaquenil for a max dose of 400 daily. The patient's Synthroid dose had just been increased to 125 mcg and this was continued. CPAP was continued for the patient's sleep apnea. On 05/23/17, the patient was seen by Occupational Therapy and deemed able to ambulate independently and manage her oxygen. At this point, she was stable for discharge. Vitals were as follows; temperature 98, heart rate 79, respiratory rate 22, blood pressure 123/58, oxygen saturation 97% on 2 L. At this point, she was stable for discharge. DISCHARGE PLANNING: The patient is being discharged on a regular diet with activity as tolerated. She has the following followup appointments scheduled: 1. She has an MRI of her shoulder scheduled tomorrow 05/24/17 at 5:10 p.m. and she needs to arrive at 4:30 p.m. to register. 2. She has a followup appointment with Dr. Hughes scheduled for 05/29/17 at 2: 20 p.m. 3. She should follow up with Dr. Santamaria in her office at 2 to 3 weeks. 4. She has a followup appointment with Dr. Wanda Reinoso on 05/27/17 at 8: 50 in the morning. The patient should return to the hospital if she experiences any worsening shortness of breath or high fever. I have reviewed all these instructions with the patient. She is agreeable with her discharge today. This is a summarized report of the complex medical history and hospital stay. For more details, please see the entire medical record. TIME SPENT: Time for this discharge was 60 minutes and over 35 minutes were spent with the patient discussing medications at discharge and followup instructions. CONDITION ON DISCHARGE: Stable. MIYA CABRERA NP [id number]/[facility] #: [id number] DONALD
== END 2017-05-23 14:50 | disposition home health service (06) | DRG 189 ==
LOC: ED 15:31 → MED 18:35 → OBSVTOIN 05-20 15:00
PROVIDERS: ADMIT Internal Medicine; ATTEND Hospitalist
DX: J96.21 Acute and chronic respiratory failure with hypoxia (principal); J84.10 Pulmonary fibrosis, unspecified; Z99.81 Dependence on supplemental oxygen; J44.9 Chronic obstructive pulmonary disease, unspecified; M06.9 Rheumatoid arthritis, unspecified; G47.33 Obstructive sleep apnea (adult) (pediatric); K21.9 Gastro-esophageal reflux disease without esophagitis; I10 Essential (primary) hypertension; E03.9 Hypothyroidism, unspecified; Z96.641 Presence of right artificial hip joint; M19.90 Unspecified osteoarthritis, unspecified site; M81.0 Age-related osteoporosis without current pathological fracture; R40.2412 Glasgow coma scale score 13-15, at arrival to emergency department; G43.909 Migraine, unspecified, not intractable, without status migrainosus; G89.29 Other chronic pain; M54.9 Dorsalgia, unspecified; Z79.82 Long term (current) use of aspirin; Z86.73 Personal history of transient ischemic attack (TIA), and cerebral infarction without residual deficits; Z86.718 Personal history of other venous thrombosis and embolism; Z90.710 Acquired absence of both cervix and uterus; Z90.722 Acquired absence of ovaries, bilateral; Z98.41 Cataract extraction status, right eye; Z98.1 Arthrodesis status; Z82.3 Family history of stroke; Z82.49 Family history of ischemic heart disease and other diseases of the circulatory system; Z82.5 Family history of asthma and other chronic lower respiratory diseases; Z88.0 Allergy status to penicillin; Z87.891 Personal history of nicotine dependence; Z88.1 Allergy status to other antibiotic agents; Z91.048 Other nonmedicinal substance allergy status; Z91.040 Latex allergy status; Z88.8 Allergy status to other drugs, medicaments and biological substances; Z88.6 Allergy status to analgesic agent; Z98.42 Cataract extraction status, left eye
CPT/HCPCS: 36415; 71010; 80048; 80053; 81401; 82652; 83516; 83605; 83880; 84484; 85025; 85379; 85610; 86038; 86140; 86200; 86606; 86609; 86644; 86645; 87040; 93005; 94640; 94660; 94664; 94760; A9270-GY; G0378; J1644; J1940; J7512

== ENCOUNTER 2017-06-27 10:49 | Inpatient (IN) | payer MEDICARE ==
[2017-06-27] MEDS ORDERED: methylPREDNISolone 125 MG* 2 ML VIAL IV ONE (11:27)
[2017-06-27] MEDS ORDERED: Albuterol/Ipratropium NEB.SOL* Albuterol 2.5 MG/Ipratropium 0.5 MG 3 ML INH ONE ×2 (11:27→12:26)
[2017-06-27 11:44] LABS: Comments Flag Yes; Hematocrit 32 % (35-47); Hemoglobin 10.6 g/dl (12.0-16.0); Mean Corpuscular HGB Conc 33 g/dl (31-36); Mean Corpuscular Hemoglobin 33 pg (27-31); Mean Corpuscular Volume 100 fL (80-97); Mean Platelet Volume 9 um3 (7.4-10.4); Red Blood Count 3.23 10^6/ul (4.0-5.4); Red Cell Distribution Width 15 % (10.5-15); White Blood Count 3.2 10^3/ul (3.5-10.8)
[2017-06-27 11:45] LABS: Add Diff/Slide Review? Slide Review Added
[2017-06-27 11:59] LABS: Albumin 3.2 g/dL (3.2-5.2); BUN/Creatinine Ratio 34.1 (8-20); C Reactive Protein 267.42 mg/L (< 5.00); Calcium 9.1 mg/dL (8.6-10.3); EGFR African American 38.8 (>60); EGFR Non-African American 30.2 (>60); Globulin 3.2 g/dL (2-4); Magnesium 2.4 mg/dL (1.9-2.7); Total Protein 6.4 g/dL (6.4-8.9)
[2017-06-27 12:00] LABS: Troponin I 0.03 ng/mL (<0.04)
[2017-06-27 12:11] LABS: Add Path Review? YES; Eosinophils % 2 % (0-6); Immature Granulocytes 16 % (0-9); Myelocytes % 1 % (0-1); Neutrophil % 51 % (38-83); RBC Morphology Normal (Normal)
[2017-06-27 12:13] LABS: TSH (Thyroid Stimulating Horm) 1.65 mcIU/mL (0.34-5.60)
--- NOTE | 2017-06-27 12:43 | RAD ---
INDICATION: Short of breath COMPARISON: May 19, 2017 TECHNIQUE: An AP portable view obtained at 1210 hours is submitted. FINDINGS: Bones/Soft Tissues: There are no acute bony findings. Cardiomediastinal: The heart is normal in size. The central pulmonary vessels and interstitium are prominent compatible with pulmonary vascular congestion.. Lungs: There are no infiltrates. Pleura: There are no pleural effusions. Other: None IMPRESSION: FINDINGS OF MILD PULMONARY VASCULAR CONGESTION
[2017-06-27] MEDS: Levofloxacin 750 MG IVPREMIX(* 750 MG/150 ML BAG IVPB ONE ×2 (13:37→13:53)
[2017-06-27] MEDS ORDERED: Ondansetron INJ* 2 MG/ML VIAL IV PRN (14:32)
[2017-06-27] MEDS ORDERED: Albuterol 2.5 MG/3 ML NEB.SOL* (0.083%) INH PRN (14:32)
[2017-06-27] MEDS ORDERED: Acetaminophen TAB* 325 MG PO PRN (14:32)
[2017-06-27] MEDS ORDERED: NS 0.9% 1000 ML* 2,000 ML IV ONE (14:32)
--- NOTE | 2017-06-27 14:42 | ED ---
Claudia Romero Alfonso, scribed for Maldonado Batista MD on 06/27/17 at 1124 . Shortness of Breath - HPI Summary HPI Summary: This patient is a 71 year old F BIBA to [facility] accompanied by family members with a chief complaint of SOB gradually worsening since a few days ago. The patient rates the pain 0/10 in severity. Symptoms aggravated by exertion. Symptoms alleviated by breathing treatment. Patient reports fever, and dark urine. Patient denies chills, productive coughing, weight gain, and wheezing. She uses O2 NC at home. She reports being admitted to the hospital for similar symptoms approximately one month ago. - History of Current Complaint Chief Complaint: EDShortnessOfBreath Time Seen by Provider: 06/27/17 11:18 Hx Obtained From: Patient Onset/Duration: Gradual Onset, Lasting Days, Still Present, Worse Since Timing: Constant Aggrevating Factors: Other - exertion Alleviating Factors: Other - Breathing treatment Associated Signs & Symptoms: Fever - Allergy/Home Medications Allergies/Adverse Reactions: Allergies Allergy/AdvReac Type Severity Reaction Status Date / Time Amoxicillin [From Augmentin] Allergy Severe Difficulty Verified 05/17/17 16:16 Breathing Clavulanic Acid Allergy Severe Difficulty Verified 05/17/17 16:16 [From Augmentin] Breathing Erythromycin Allergy Intermediate Rash Verified 05/17/17 16:16 Latex Allergy Intermediate Rash Verified 05/17/17 16:16 Aminophylline Allergy Mild Rash Verified 05/17/17 16:16 Atorvastatin [From Lipitor] Allergy Stomach Verified 05/17/17 16:16 Cramps Epinephrine Allergy Rash Verified 05/19/17 19:14 Nystatin [From Mycolog-II] Allergy Unknown Verified 05/19/17 19:12 Reaction Details Pravastatin Allergy Stomach Verified 05/17/17 16:16 Cramps Triamcinolone Allergy Unknown Verified 05/19/17 19:11 [From Mycolog-II] Reaction Details ADHESIVE TAPE Allergy Intermediate Blisters Uncoded 05/17/17 16:16 ANTINFLAMMATORY Allergy Mild GI Upset Uncoded 05/17/17 16:16 Home Medications: Home Medications Furosemide TAB* [Lasix TAB*] 20 mg PO EVERY OTHER DAY 06/27/17 [History Confirmed 06/27/17] Levothyroxine TAB* [Synthroid 125 MCG TAB*] 125 mcg PO QAM 06/27/17 [History Confirmed 06/27/17] Lisinopril TAB* [Prinivil TAB*] 5 mg PO DAILY 06/27/17 [History Confirmed ] predniSONE TAB* [Deltasone TAB*] 70 mg PO DAILY 06/27/17 [History Confirmed 05/05] PMH/Surg Hx/FS Hx/Imm Hx Endocrine/Hematology History: Reports: Hx Thyroid Disease - HYPO Denies: Hx Diabetes Cardiovascular History: Reports: Hx Hypertension, Hx Valvular Heart Disease - MVP, Other Cardiovascular Problems/Disorders - Hx of DVT following a muscle tear with hematoma 1993 Denies: Hx Pacemaker/ICD Respiratory History: Reports: Hx Asthma - CONTROLLED WITH INHALER, Hx Chronic Obstructive Pulmonary Disease (COPD), Hx Sleep Apnea - SLEEP STUDY 03/03/15 GI History: Reports: Hx Gastroesophageal Reflux Disease Denies: Hx Ulcer History: Reports: Hx Kidney Infection - HX OF Denies: Hx Dialysis, Hx Renal Disease Musculoskeletal History: Reports: Hx Arthritis - OSTEOARTHRITIS AND RA, Hx Rheumatoid Arthritis, Hx Bursitis - HISTORY IN SHOULDER, Hx Osteoporosis, Hx Tendonitis - IN ELBOW, Other Musculoskeletal History - degenrative disc disease Denies: Hx Back Problems Sensory History: Reports: Hx Cataracts - HAD SURGERY ON BOTH EYES Denies: Hx Contacts or Glasses, Hx Hearing Aid Opthamlomology History: Reports: Hx Cataracts - HAD SURGERY ON BOTH EYES Denies: Hx Contacts or Glasses Neurological History: Reports: Hx Headaches - lately, Hx Migraine, Other Neuro Impairments/Disorders - RHEUMATOID ARTHRITIS Denies: Hx Dementia, Hx Seizures Psychiatric History: Denies: Hx Panic Disorder - Cancer History Hx Chemotherapy: No Hx Radiation Therapy: No - Surgical History Surgery Procedure, Year, and Place: HYSTERECTOMY 1974. ABDOMINAL BOWEL OBSTRUCTION 1982. NEUROMA BILAT FEET. LUMBAR FUSION 1989. CERVICAL FUSION 1990. BILAT CTR- 3-4 YEARS AGO [facility]. HERNIA REPAIR [facility]. BILAT CATARACT [facility]. RT KNEE ACL REPAIR [facility]. R ROTATOR CUFF REPAIR 01/29 [facility]. IMPLANTED EVENT MONITOR 04/2013 Hx Anesthesia Reactions: No Infectious Disease History: No Infectious Disease History: Denies: Hx Clostridium Difficile, Hx Hepatitis, Hx Human Immunodeficiency Virus (HIV), Hx of Known/Suspected MRSA, Hx Shingles, Hx Tuberculosis, Traveled Outside the [place] in Last 30 Days - Family History Known Family History: Positive: Cardiac Disease - father, Renal Disease - father , Respiratory Disease - Father: COPD. , Other - Mother: stroke - Social History Alcohol Use: Rare Hx Substance Use: No Substance Use Type: Reports: None Substance Use Comment - Amount & Last Used: Tramadol Hx Tobacco Use: Yes Smoking Status (MU): Former Smoker Type: Cigarettes Amount Used/How Often: 30 yrs Have You Smoked in the Last Year: No Review of Systems Positive: Fever. Negative: Chills Positive: Shortness Of Breath, Other - Negative wheezing. Negative: Cough Positive: other - dark urine Positive: Other - Negative weight gain All Other Systems Reviewed And Are Negative: Yes Physical Exam - Summary Physical Exam Summary: General: well-appearing, no pain distress Skin: warm, color reflects adequate perfusion, dry Head: normal Eyes: EOMI, MARIZA ENT: normal Neck: supple, nontender Respiratory: Mild respiratory distress. Decreased air movement bilaterally. Scattered wheezing. Cardiovascular: Tachycardia Abdomen: soft, nontender Bowel: hypoactive bowel sounds. Musculoskeletal: normal, strength/ROM intact, No pedal edema Neurological: normal, sensory/motor intact, A&O x3 Psychological: affect/mood appropriate Triage Information Reviewed: Yes Vital Signs On Initial Exam: Initial Vitals BP 105/54 06/27/17 10:57 Vital Signs Reviewed: Yes - Lupe Coma Scale Coma Scale Total: 15 Diagnostics - Vital Signs Vital Signs Temp Pulse Resp BP Pulse Ox 06/27/17 11:09 112 25 06/27/17 11:05 112 21 117/55 97 06/27/17 11:03 97.8 F 113 26 105/54 93 06/27/17 11:00 113 96 06/27/17 10:59 115 92 06/27/17 10:57 105/54 - Laboratory Lab Results: Lab Results 06/27/17 06/27/17 06/27/17 Range/Units 11:13 11:13 11:13 WBC (3.5-10.8) 10^3/ul RBC (4.0-5.4) 10^6/ul Hgb (12.0-16.0) g/dl Hct (35-47) % MCV (80-97) fL MCH (27-31) pg MCHC (31-36) g/dl RDW (10.5-15) % Plt Count (150-450) 10^3/ul MPV (7.4-10.4) um3 Immature Gran % (Auto) (0-9) % Neut % (Auto) (38-83) % Lymph % (Auto) (25-47) % Gillespie % (Auto) (1-9) % Eos % (Auto) (0-6) % Baso % (Auto) (0-2) % Absolute Neuts (auto) (1.5-7.7) 10^3/ul Absolute Lymphs (auto) (1.0-4.8) 10^3/ul Absolute Monos (auto) (0-0.8) 10^3/ul Absolute Eos (auto) (0-0.6) 10^3/ul Absolute Basos (auto) (0-0.2) 10^3/ul Absolute Nucleated RBC 10^3/ul Neutrophils % (38-83) % Band Neutrophils % (0-8) % Lymphocytes % (25-47) % Monocytes % (0-13) % Eosinophils % (0-6) % Myelocytes % (0-1) % Nucleated RBC % Normal RBC Morphology (Normal) Hem Pathologist Commnt INR (Anticoag Therapy) 0.90 (0.89-1.11) APTT 25.1 L (26.0-36.3) seconds D-Dimer, Quantitative > 1050 H (Less Than 230) ng/mL Sodium 138 (133-145) mmol/L Potassium 4.0 (3.5-5.0) mmol/L Chloride 105 (101-111) mmol/L Carbon Dioxide 22 (22-32) mmol/L Anion Gap 11 (2-11) mmol/L BUN 57 H (6-24) mg/dL Creatinine 1.67 H (0.51-0.95) mg/dL Est GFR ( Amer) 38.8 (>60) Est GFR (Non-Af Amer) 30.2 (>60) BUN/Creatinine Ratio 34.1 H (8-20) Glucose 84 (70-100) mg/dL Lactic Acid (0.5-2.0) mmol/L Calcium 9.1 (8.6-10.3) mg/dL Magnesium 2.4 (1.9-2.7) mg/dL Total Bilirubin 1.00 (0.2-1.0) mg/dL AST 270 H (13-39) U/L ALT 185 H (7-52) U/L Alkaline Phosphatase 206 H (34-104) U/L Total Creatine Kinase 250 H (10-223) U/L CK-MB (CK-2) 9.2 H (0.6-6.3) ng/mL Troponin I 0.03 (<0.04) ng/mL C-Reactive Protein 267.42 H (< 5.00) mg/L B-Natriuretic Peptide 110 H ( - 100) pg/mL Total Protein 6.4 (6.4-8.9) g/dL Albumin 3.2 (3.2-5.2) g/dL Globulin 3.2 (2-4) g/dL Albumin/Globulin Ratio 1.0 (1-3) Lipase 10 L (11.0-82.0) U/L TSH 1.65 (0.34-5.60) mcIU/mL 06/27/17 06/27/17 Range/Units 11:13 11:13 WBC 3.2 L (3.5-10.8) 10^3/ul RBC 3.23 L (4.0-5.4) 10^6/ul Hgb 10.6 L (12.0-16.0) g/dl Hct 32 L (35-47) % MCV 100 H (80-97) fL MCH 33 H (27-31) pg MCHC 33 (31-36) g/dl RDW 15 (10.5-15) % Plt Count 87 L D (150-450) 10^3/ul MPV 9 (7.4-10.4) um3 Immature Gran % (Auto) 16 H (0-9) % Neut % (Auto) 65.8 (38-83) % Lymph % (Auto) 23.5 L (25-47) % Gillespie % (Auto) 5.8 (1-9) % Eos % (Auto) 2.4 (0-6) % Baso % (Auto) 2.5 H (0-2) % Absolute Neuts (auto) 2.1 (1.5-7.7) 10^3/ul Absolute Lymphs (auto) 0.8 L (1.0-4.8) 10^3/ul Absolute Monos (auto) 0.2 (0-0.8) 10^3/ul Absolute Eos (auto) 0.1 (0-0.6) 10^3/ul Absolute Basos (auto) 0.1 (0-0.2) 10^3/ul Absolute Nucleated RBC 0.01 10^3/ul Neutrophils % 51 (38-83) % Band Neutrophils % 15 H (0-8) % Lymphocytes % 27 (25-47) % Monocytes % 4 (0-13) % Eosinophils % 2 (0-6) % Myelocytes % 1 (0-1) % Nucleated RBC % 0.3 Normal RBC Morphology Normal (Normal) Hem Pathologist Commnt Pending INR (Anticoag Therapy) (0.89-1.11) APTT (26.0-36.3) seconds D-Dimer, Quantitative (Less Than 230) ng/mL Sodium (133-145) mmol/L Potassium (3.5-5.0) mmol/L Chloride (101-111) mmol/L Carbon Dioxide (22-32) mmol/L Anion Gap (2-11) mmol/L BUN (6-24) mg/dL Creatinine (0.51-0.95) mg/dL Est GFR ( Amer) (>60) Est GFR (Non-Af Amer) (>60) BUN/Creatinine Ratio (8-20) Glucose (70-100) mg/dL Lactic Acid 2.6 H* (0.5-2.0) mmol/L Calcium (8.6-10.3) mg/dL Magnesium (1.9-2.7) mg/dL Total Bilirubin (0.2-1.0) mg/dL AST (13-39) U/L ALT (7-52) U/L Alkaline Phosphatase (34-104) U/L Total Creatine Kinase (10-223) U/L CK-MB (CK-2) (0.6-6.3) ng/mL Troponin I (<0.04) ng/mL C-Reactive Protein (< 5.00) mg/L B-Natriuretic Peptide ( - 100) pg/mL Total Protein (6.4-8.9) g/dL Albumin (3.2-5.2) g/dL Globulin (2-4) g/dL Albumin/Globulin Ratio (1-3) Lipase (11.0-82.0) U/L TSH (0.34-5.60) mcIU/mL Result Diagrams: 06/27/17 11:13 06/27/17 11:13 Lab Statement: Any lab studies that have been ordered have been reviewed, and results considered in the medical decision making process. - Radiology CXR Radiology Interpretation Completed By: Radiologist - FINDINGS OF MILD PULMONARY VASCULAR CONGESTION. ED physician has reviewed this radiology report and agrees. - EKG 1138 Cardiac Rate: Tachycardia EKG Rhythm: Sinus Tachycardia ST Segment: Normal Ectopy: None EKG Interpretation: BPM 105. Course/Dx - Course Course Of Treatment: PATIENT DESATURATES WITH ANY ACTIVITY. ADMIT HOSPITALIST. - Diagnoses Provider Diagnoses: Hypoxia, Pneumonia - Physician Notifications Discussed Care of Patient With: Radha Cristina Time Discussed With Above Provider: 12:29 Instructed by Provider To: Other - Consulted Dr. Cristina (hospitalist) at 1229 who agrees to admit. - Critical Care Time Critical Care Time: 30-74 min Discharge - Discharge Plan Condition: Guarded Disposition: ADMITTED TO [facility] documentation as recorded by the Claudia morgan Alfonso accurately reflects the service I personally performed and the decisions made by me, Maldonado Batista MD.
[2017-06-27] MEDS: Cefepime 2 GM in Dextrose(*) 2 GM/50 ML BAG IV SCH (15:54)
[2017-06-27] MEDS: methylPREDNISolone 125 MG* 2 ML VIAL IV SCH ×2 (15:57→22:19)
[2017-06-27] MEDS: Gabapentin CAP(*) 300 MG PO SCH ×2 (17:41→21:36)
[2017-06-27] MEDS: NS 0.9% 1000 ML* 1,000 ML IV SCH (18:47)
[2017-06-27] MEDS: traMADol TAB* 50 MG PO PRN (18:47)
--- NOTE | 2017-06-27 18:50 | HP ---
CC: Dr. Reinoso; Dr. Mejia; Dr. Santamaria * HISTORY AND PHYSICAL: DATE OF ADMISSION: 06/27/17 PRIMARY CARE PROVIDER: Dr. Reinoso. CONSULTING AIR AND WATER TESTER: Dr. Mejia. CONSULTING WOUND CARE PHYSICIAN: Dr. Santamaria. ATTENDING PHYSICIAN WHILE IN THE HOSPITAL: Dr. Radha Ny * (reported dictated by Rivera Coyle NP). CHIEF COMPLAINT: 1. Shortness of breath. 2. Hypoxia. HISTORY OF PRESENT ILLNESS: Ms. Daigle is a 71-year-old female patient who carries a history of COPD, interstitial lung disease of unclear etiology, history of rheumatoid arthritis, YOLA, history of CVA, GERD, hypertension, history of DVT, hypothyroidism, and history of small bowel obstruction. She comes into our ER today, says over the last 3 days, she has had progressive worsening shortness of breath. She noticed that 2 days ago, she had a fever of 103. She said she has not been coughing or having any rhinorrhea, sore throat, or runny nose, but she has noticed that her oxygen requirements have been increasing. She has noted that she has been having low oxygen levels; they were down into the 50s today. She pumped up her oxygen, but despite this it did not improve and she was concerned and came into the hospital immediately. There have been no reports of recent sick contact. There was a reported fever of 103. There has been no vomiting or diarrhea or abdominal discomfort and she says that she has not had any orthopnea, no weight gain, and no swelling of the lower extremities. There was concern and she came into the ED and it was noted that she was hypoxic. She was placed on Vapotherm. She appeared to be septic with multisystem organ failure and we were asked to evaluate for admission. PAST MEDICAL HISTORY: Significant for: 1. COPD. 2. Rheumatoid arthritis. 3. YOLA. 4. Interstitial lung disease of unclear etiology. 5. CVA. 6. GERD. 7. Hypertension. 8. History of DVT. 9. Hypothyroidism. 10. History of SBO. PAST SURGICAL HISTORY: 1. She has had hysterectomy. 2. Bilateral oophorectomy. 3. Right total hip arthroplasty. 4. She has had lower back surgery. 5. C-spine fusion. 6. Loop recorder placement, now removal. 7. She has had a bunionectomy. 8. Right knee surgery. 9. She has had rotator cuff repair. MEDICATIONS: Home meds according to her list provided include: 1. Synthroid 125 mcg p.o. daily. 2. Plaquenil 200 mg p.o. b.i.d. 3. Colace 100 mg p.o. b.i.d. 4. Zyrtec 10 mg daily. 5. Calcium carbonate 1 tablet p.o. b.i.d. 6. Prednisone, she is on 25 mg daily, now she is weaning down. 7. Albuterol 1.25 mg inhaled four times a day as needed. 8. Prilosec 20 mg p.o. b.i.d. 9. Iron with vitamin C 1 tablet p.o. b.i.d. 10. Neurontin 600 mg p.o. four times a day. 11. Lisinopril 5 mg daily. 12. Flonase 2 sprays both nares daily. 13. Diclofenac gel 1 application topical b.i.d. as needed. 14. ProAir 1 to 2 puffs every 4 hours as needed. 15. Pramipexole 0.125 mg p.o. at bedtime. 16. Estradiol patch 0.05 topically twice weekly. 17. Aspirin 81 mg daily. 18. Percocet 1 tablet p.o. t.i.d. as needed. 19. Lasix 20 mg p.o. every other day. 20. Ultram 50 to 100 mg every 6 hours as needed. 21. Celebrex 20 mg p.o. daily. 22. Advair 1 puff inhaled b.i.d. ALLERGIES TO MEDICATIONS: Include AUGMENTIN, ERYTHROMYCIN, LATEX, AMINOPHYLLINE , LIPITOR, EPINEPHRINE, NYSTATIN, PRAVACHOL, TRIAMCINOLONE, TAPE, ANTIINFLAMMATORY. FAMILY HISTORY: Mother had a history of CVA. Father had a history of COPD and heart disease. SOCIAL HISTORY: She is a former smoker. She quit in 2004. She does not drink alcohol. Surrogate decision makers are her daughters. REVIEW OF SYSTEMS: There is a documented fever at home of 103. There is no significant weight change. There was no double vision. There is no ear discharge. She denied having any rhinorrhea. There is no sore throat. No thyroid enlargement. She denied having any chest pain. There was no orthopnea , no nocturnal dyspnea. There was no abdominal pain. There was no nausea, no vomiting. There was shortness of breath noted. No dysuria, no frequency. There was no seizure, no loss of consciousness. No pruritus and no skin ulcerations. Review of 14 systems completed, all others negative. PHYSICAL EXAMINATION GENERAL: At this time, Ms. Daigle is a 71-year-old female patient. She is sitting in the ED stretcher. She does not appear to be in any acute distress. She is awake and she is alert. VITAL SIGNS: Blood pressure 118/63, pulse 109, respirations 20, O2 sat 97%, and temperature 97.8. HEENT: Head atraumatic, normocephalic. Eyes: EOMs are intact. Sclerae are anicteric, not pale. Throat: Oral mucosa appears to be dry. No oropharyngeal erythema. NECK: Supple. LUNGS: She had rhonchi in the lower lobes, equal diaphragmatic expansion. HEART: Sounds S1 and S2. Regular rate and rhythm. She is tachycardic. ABDOMEN: Soft, flat, nontender. Bowel sounds present. EXTREMITIES: Pulses are 2+ throughout. She is able to move all 4 extremities with 5/5 strength. NEUROLOGIC: The patient is awake, alert. She is oriented x3. Biophysics Teacher were equal. Tongue is midline. She had no gross focal deficits. SKIN: Grossly intact. DIAGNOSTIC STUDIES/LAB DATA: WBC of 3.2, RBC of 3.23, hemoglobin 10.6, hematocrit 32, platelet count 87 which is down from her previous. She also has band 15%. PTT was 25.1. The D-dimer was greater than 1050. The sodium was 138 ; potassium was 4.0; chloride of 105; bicarb 22, BUN 57; creatinine 1.67, her baseline is 0.8 to 0.9; glucose 84; lactate 2.6; calcium 9.1; mag 2.4. Total bili 1.4, AST 270, ALT 185, alk phos 206. CK 205, CK-MB 9.2. Troponin 0.03. CRP of 267. BNP of 110. TSH is normal. Lipase was low at 10. Chest x-ray obtained today, impression: Findings of mild pulmonary vascular congestion. Under my review, it does appear that she may be developing infiltrate in the right base. EKG obtained today revealed a sinus tachycardia, rate of 106. No ST elevation or T- wave inversions were noted. Old medical records were reviewed. ASSESSMENT AND PLAN: Ms. Daigle is a 71-year-old female patient coming into the ER today with complaints of fever, worsening shortness of breath. On evaluation here today, found to be having severe sepsis. The patient will be admitted under inpatient status for: 1. Severe sepsis with multisystem organ failure. At this point, fortunately, she does not appear to be in septic shock, but I do think that she needs to be hydrated aggressively. She needs to undergo flu swab as well rossi culture the patient. Blood cultures were attempted here in the ED; however, they were unable to be obtained as she is a hard stick, I have asked these to be done. We will get serial lactate. We will get her on broad-spectrum antibiotics in the form of cefepime and Levaquin. We will get legionella antigen, Streptococcus pneumoniae antigen, and flu swab, and I did touch base with Dr. Mejia as well as I am worried that with hydration, her work of breathing may increase, but without it, her kidneys will suffer. In addition to this, again she will not perfuse. My plan will be to hydrate her, again aggressive antibiotics, and to also get close follow with Dr. Mejia, our transformer shop supervisor. 2. Chronic obstructive pulmonary disease, question of interstitial lung disease. Again, I did consult with Dr. Santamaria. The plan will be to get her on standing nebs, p.r.n. albuterol, and also standing steroids as well. 3. Rheumatoid arthritis. Continue with her steroids. 4. History of obstructive sleep apnea. We will get to her on auto CPAP if she is able to be weaned off the Vapo. 5. History of cerebrovascular accident. Continue secondary prevention. 6. Gastroesophageal reflux disease. Continue meds as prescribed. 7. Hypertension. In the setting of acute illness, I am holding her meds. 8. Acute renal failure. We will send off a FENa. I suspect this is prerenal, possibly from acute tubular necrosis, from the sepsis, but we will hydrate her aggressively. We will place a Jacobs, follow her urine output closely. Get a FENa and again follow up. 9. History of deep venous thrombosis. We will get her on heparin subcu. 10. Hypothyroidism. Continue her Synthroid. 11. Code status. She is full code. 12. Fluids, electrolytes, and nutrition. Clear liquid diet. TIME SPENT: On this admission, critical care time was approximately 60 minutes , greater than half the time was spent [id number] with the patient obtaining my history and physical; the other half time spent going over the plan of care with the patient and implementing the plan of care. I did discuss the plan of care with my attending, Dr. Ny; she is in agreement. RIVERA COYLE, SPECIAL EDUCATION CASE MANAGER [id number]/CPS #: [id number] DONALD
[2017-06-27] MEDS: Mometasone/Formoter 200/5 MDI INH SCH ×2 (18:54→19:37)
[2017-06-27] MEDS: Albuterol/Ipratropium NEB.SOL* Albuterol 2.5 MG/Ipratropium 0.5 MG 3 ML INH SCH ×2 (18:54→19:34)
[2017-06-27 20:30] LABS: Urine Bacteria 1+ (Absent); Urine Bilirubin Negative (Negative); Urine Glucose 1+(50 mg/dL) (Negative); Urine Nitrite Negative (Negative)
[2017-06-27 21:23] LABS: Venous Bicarbonate HCO3 21.4 mmol/L (24-28)
[2017-06-27] MEDS: Heparin VIAL(*) 5000 UNITS/ML VIAL (FIVE THOUSAND) SUBCUT SCH (21:36)
[2017-06-27] MEDS: Hydroxychloroquine TAB* 200 MG PO SCH (21:36)
[2017-06-27] MEDS: Omeprazole CAP* 20 MG PO SCH (21:36)
[2017-06-27] MEDS: Pramipexole TAB* 0.125 MG PO SCH (21:36)
[2017-06-27] MEDS ORDERED: oxyCODONE/Acetamin 5/325 MG* TAB ONE (22:14)
[2017-06-27] MEDS ORDERED: oxyCODONE/Acetamin 5/325 MG* TAB PO PRN (22:36)
[2017-06-27] MEDS ORDERED: NS 0.9% 1000 ML* 1,000 ML IV ONE (22:45)
[2017-06-28] MEDS: Albuterol/Ipratropium NEB.SOL* Albuterol 2.5 MG/Ipratropium 0.5 MG 3 ML INH SCH ×4 (01:40→19:49)
[2017-06-28 05:41] LABS: Hematocrit 27 % (35-47); Hemoglobin 8.8 g/dl (12.0-16.0); Mean Corpuscular HGB Conc 33 g/dl (31-36); Mean Corpuscular Hemoglobin 33 pg (27-31); Mean Corpuscular Volume 99 fL (80-97); Mean Platelet Volume 9 um3 (7.4-10.4); Red Cell Distribution Width 15 % (10.5-15); White Blood Count 4.4 10^3/ul (3.5-10.8)
[2017-06-28] MEDS: Heparin VIAL(*) 5000 UNITS/ML VIAL (FIVE THOUSAND) SUBCUT SCH ×3 (05:52→22:09)
[2017-06-28 05:59] LABS: Albumin 2.9 g/dL (3.2-5.2); BUN/Creatinine Ratio 32.1 (8-20); Calcium 7.9 mg/dL (8.6-10.3); Direct Bilirubin 0.2 mg/dL (0.03-0.18); EGFR African American 61.5 (>60); EGFR Non-African American 47.8 (>60); Globulin 2.7 g/dL (2-4); Indirect Bilirubin 0.5 mg/dL (0.3-1.0); Potassium 4.1 mmol/L (3.5-5.0); Total Bilirubin 0.7 mg/dL (0.2-1.0); Total Protein 5.6 g/dL (6.4-8.9)
[2017-06-28] MEDS ORDERED: Levothyroxine TAB* 125 MCG TAB PO SCH (06:00)
[2017-06-28] MEDS: methylPREDNISolone 125 MG* 2 ML VIAL IV SCH ×3 (06:02→22:09)
[2017-06-28] MEDS: NS 0.9% 1000 ML* 1,000 ML IV SCH (06:02)
[2017-06-28 06:10] LABS: Add Diff/Slide Review? Slide Review Added; Comments Flag Yes
[2017-06-28] MEDS: Mometasone/Formoter 200/5 MDI INH SCH (08:43)
[2017-06-28] MEDS: Gabapentin CAP(*) 300 MG PO SCH ×4 (08:48→21:55)
[2017-06-28] MEDS: Aspirin EC Low Dose* 81 MG TAB.EC PO SCH (08:48)
[2017-06-28] MEDS: Hydroxychloroquine TAB* 200 MG PO SCH (08:48)
[2017-06-28] MEDS: Omeprazole CAP* 20 MG PO SCH (08:51)
[2017-06-28] MEDS: traMADol TAB* 50 MG PO PRN (08:53)
[2017-06-28] MEDS ORDERED: Lisinopril TAB* 10 MG PO SCH (10:00)
[2017-06-28] MEDS ORDERED: Morphine INJ* 4 MG/ML 1 ML CARPUJECT IV ONE ×2 (10:50→11:02)
[2017-06-28] MEDS ORDERED: Morphine INJ* 4 MG/ML 1 ML CARPUJECT ONE ×2 (10:53→11:01)
[2017-06-28] MEDS ORDERED: NS 0.9% 1000 ML* 1,000 ML IV SCH (11:42)
[2017-06-28] MEDS ORDERED: LORazepam INJ* 2 MG/ML 1 ML VIAL IV PUSH PRN (12:20)
[2017-06-28] MEDS ORDERED: Amiodarone 150 MG IVPREMIX* 150 MG/100 ML BAG IV ONE (13:09)
[2017-06-28] MEDS: Cefepime 2 GM in Dextrose(*) 2 GM/50 ML BAG IV SCH (14:53)
[2017-06-28] MEDS ORDERED: Propofol* 100 ML ONE (15:02)
--- NOTE | 2017-06-28 15:29 | PN ---
Progress Note - Progress Note Date of Service: 06/28/17 Note: CRITICAL CARE MEDICINE Date: 06/28/17 Time: 1200 SUBJECTIVE: Patient seen and examined. PHYSICAL EXAM: Vital Signs: Reviewed. Neurologic: awake, communicating. HEENT: pupils equal. Sclera anicteric. Trachea midline. Cardiovascular: S1 S2, reg tachy Respiratory: dec bl, forced exhalation and poor deep inspiration. no wheeze. dry rales bl Abdomen: Soft, obese, nt. No r/g/r. Extremities: Warm. Access: picc placed LABS: Reviewed. flu neg IMAGING: Reviewed. CT in 2013 with empysema; CT end apr 2017 with ground glass with emphysema and interstial changes/fibrosis MEDICATIONS: Reviewed. ASSESSMENT: 71 F Acute on chronic hypoxic respiratory failure Tx for HCAP ?fungal pna - at least to the degree worsening space. Multisystem organ dysfunction sec to hypoxemia Emphysema PLAN: Neurologic: stable. needs anxiotytic and air hunger relief. explained about giving morphine and trying bipap a bit longer. Cardiovascular: Perfusing but inc demand. vol status up interstitially now and intravascular met but not overloaded. question further right heart decompensation. stopm ivf for now Respiratory: much of her dynamic seems to stem from globaly hypoxemia over last several days perhaps and mods. Question is about reversibility vs chronic decline. explained such to pt. bipap and vapotx today but likely headed towards intubation. we had a beryl discussion with daughter present about risks and benefits. she is ok with trial but not longer term. most of her disease looks subacute on chronic without reversible acute component. progression of RA ILD with AIP? vs fibrosis - already had been on prednisone. Gastrointestinal: diet ok but not going to have adequate intake today. sup. lfts up with likely hepatic congestion from lung dz/R heart. Renal/Metabolic: myesha sec to low end perfusion. systemic disease other then low flow? Infectious Disease: tx for hcap although not appearing infective. at risk for opportunistics but nothing obvious. Yeast pos on sputum, which again may be an ailment contributing to inc deadspace and given her condition will tx with systemic diflucan. remains onhigh dose levaquin. can dc C4. Hematology: pancytopenia - suppression. some consumption. ?systematic. Endocrine: receiving solumedrol for what it is worth. question of a reversible AIP. f/u glu Musculoskeletal: bedrest currently Psych/Social: family up to date at bedside Supportive and preventative care as ordered. SUP: ppi VTE prophylaxis: heparin Jacobs catheter given critical illness, monitoring needs for accurate assessment of MYESHA and KDIGO criteria for critically ill patients and to avoid potential harms of urinary retention, skin breakdown/ulcers. Disposition: ICU Code Status: Full presently Critical Care Time: 50min Charline Hill DO
[2017-06-28] MEDS: Fluconazole 200 MG IVPREMIX(*) 200 MG/100 ML BAG IVPB SCH (15:59)
[2017-06-28] MEDS ORDERED: fentaNYL* 50 MCG/ML 5 ML VIAL (250 MCG VIAL) ONE (16:44)
[2017-06-28] MEDS ORDERED: Propofol* 10 MG/ML 100 ML BTL ONE (16:48)
[2017-06-28] MEDS ORDERED: fentaNYL* 50 MCG/ML 2 ML VIAL (100 MCG VIAL) IV SLOW PU PRN (17:18)
--- NOTE | 2017-06-28 17:23 | PN ---
Progress Note - Progress Note Date of Service: 06/28/17 Note: CRITICAL CARE MEDICINE PROCEDURE NOTE DATE: 06/28/17 TIME: 1700 SERVICE: Critical Care Medicine LOCATION OF PROCEDURE: ICU PROCEDURE: Endotracheal intubation PROCEDURALIST: Dr. Hill Consent obtain: Yes Time out held: Not indicated INDICATION: Acute respiratory failure. PROCEDURE: Oxygenation maintained and vitals monitored. Patient in supine position. Pre-medication with fentanyl 250mcg total / propofol 100mg. Glidescope #3 inserted with Grade 1 view obtained. 7.5 endotracheal tube inserted to 20cm lip. Good chest rise with breath sounds appreciated in bilaterally lung vilchis. EtCO2 + color change. Sats to 70s with no surprise and slow to rise. family at bedside throughout. Portable chest x-ray pending. Patient otherwise tolerated well. Charline Hill,
[2017-06-28] MEDS: LORazepam INJ* 2 MG/ML 1 ML VIAL IV PUSH PRN (17:54)
[2017-06-28] MEDS ORDERED: fentaNYL PATCH 50 MCG/HR TRANSDERM SCH (18:00)
--- NOTE | 2017-06-28 18:04 | RAD ---
INDICATION: Status post intubation orogastric tube placement. COMPARISON: Comparison is made with prior chest x-ray study from June 27, 2017. TECHNIQUE: A portable view of the chest was obtained. FINDINGS: The heart is mildly enlarged and unchanged from the prior exam. Note is made of endotracheal tube which projects approximately 4 cm above the colton. There appears to be a PICC on the right side. The catheter tip projects over the distal subclavian vein region. There is an orogastric tube which demonstrates normal course. The catheter tip projects in the left upper quadrant. There is mild diffuse prominence of the interstitial markings with more focal patchy of a trace in the mid and lower lung vilchis which have progressed. IMPRESSION: BILATERAL INFILTRATES DEMONSTRATING INTERVAL PROGRESSION.
[2017-06-28] MEDS: Chlorhexidine MOUTHWASH 0.12%* 15 ML UDC TOPICAL SCH ×2 (18:33→22:09)
[2017-06-28] MEDS: Propofol* 100 ML IV SCH ×3 (18:46→23:46)
[2017-06-28] MEDS: fentaNYL Patch Check Q Shift 1 NOTE SCH (19:06)
--- NOTE | 2017-06-28 20:09 | CONS ---
PULMONARY CONSULTATION REPORT: DATE OF CONSULT: 06/28/17 CONSULTATION REQUESTED BY: Rivera Coyle NP REASON FOR CONSULT: Evaluation of hypoxemia. HISTORY OF PRESENT ILLNESS: The patient is a 71-year-old female with history of COPD; interstitial lung disease of unclear etiology; seronegative rheumatoid arthritis; YOLA, on CPAP; history of CVA; GERD; DVT; hypothyroidism; small bowel obstruction with recurrent admissions recently for shortness of breath, hypoxemia, altered mental status, the patient was recently treated for pneumonia and discharged from the hospital. The patient readmitted for evaluation of worsening hypoxemia at home that did not improve with increase in O2 supplementation. The patient was found to be significantly hypoxemic in the emergency room, was placed on BiPAP to help with work of breathing. Significant labs include pancytopenia with significant drop in platelets, hemoglobin of 10.6 that is not significantly changed from prior values and leukopenia with the white count of 3.2, white count improved to 4.4 on the repeat labs from this morning, hemoglobin around 8.8 and platelet count of 63 this morning, dropped from 87. The patient was placed on BiPAP after being tried on Vapotherm initially in the ED. This morning, she is on BiPAP with 100 % FiO2 with no accessory muscle usage or respiratory distress. The patient was found to have PO2 of 168 on 100% FiO2 with a P/F ratio of less 200. She does not have elevated eosinophil count concerning for eosinophilic pneumonia. The patient was noted to have a limited lactic acid levels on admission, which normalized. The patient was recently started on prednisone with the slow taper , given concern for interstitial lung disease from seronegative rheumatoid arthritis since her medications were being held after recent surgery. The patient also with evidence of elevated LFTs more consistent with congestive hepatopathy. The patient also with mildly elevated BNP, normal TSH levels. Chest x-ray showed chronic interstitial disease bilaterally without significant change in comparison with prior chest x-ray. Of note, her D-dimer also is significantly elevated, which she also had in the past and had a CTA in April of 2017, which does not show evidence of pulmonary embolism. The patient noted to have significant emphysematous changes and chronic lung findings with superimposed interstitial edema and ground-glass opacities. The patient is currently on broad-spectrum antibiotics. She was also started on antifungals for possible fungal pneumonia. She is currently on Plaquenil, which was restarted for her rheumatoid arthritis. She is also being continued on Solu- Medrol 60 mg IV q.8. PAST MEDICAL HISTORY: As delineated in history and physical. 1. COPD with significant emphysematous changes. 2. Seronegative-rheumatoid arthritis, being followed by Rheumatology. 3. Obstructive sleep apnea, on CPAP. 4. Interstitial lung disease with working diagnosis of BOOP/SEAT JOINER versus acute interstitial pneumonia. 5. Right heart failure. 6. CVA. 7. GERD. 8. Hypertension. 9. DVT. 10. Hypothyroidism. 11. History of small bowel obstruction. PAST SURGICAL HISTORY: 1. Hysterectomy and bilateral oophorectomy. 2. Total hip arthroplasty. 3. Lower back surgery. 4. C-spine fusion. 5. Loop recorder placement in the past. 6. Bunionectomy. 7. Right knee surgery. 8. Rotator cuff repair. MEDICATIONS: 1. Synthroid. 2. Plaquenil. 3. Colace. 4. Zyrtec. 5. Calcium carbonate. 6. Prednisone, was on 25 mg tapering dose on admission. 7. Albuterol. 8. Prilosec 20 mg b.i.d. 9. Iron with vitamin C. 10. Neurontin 600 four times a day. 11. Lisinopril. 12. Flonase. 13. Diclofenac. 14. ProAir. 15. Pramipexole. 16. Estradiol. 17. Aspirin. 18. Percocet. 19. Lasix. 20. Ultram. 21. Celebrex. 22. Advair. ALLERGIES: AUGMENTIN, ERYTHROMYCIN, LATEX, AMINOPHYLLINE, LIPITOR, EPINEPHRINE , NYSTATIN, PRAVACHOL, TRIAMCINOLONE, ANTIINFLAMMATORY. FAMILY HISTORY: CVA in mother. COPD and heart disease in father. SOCIAL HISTORY: Former smoker, quit in 2004. Does not drink alcohol. REVIEW OF SYSTEMS: All 14 systems reviewed and as per HPI. PHYSICAL EXAM: The patient in bed, BiPAP mask in place. Vital Signs: Temperature 98.6, pulse 113 beats per minute, respiratory rate 21 per minute, O2 sat 93% on 100% FiO2, blood pressure 153/87. HEENT: Pupils equal, reactive to light. Mucous membranes dry. Respiratory: Diminished air entry bilaterally , distant breath sounds, crackles at bases. Cardiovascular: Tachycardic, S1 and S2 present. Abdomen: Obese, bowel sounds present, nontender, nondistended. Extremities: Normal range of motion. No edema. Neurological: Alert, awake, oriented x3. Mildly anxious. DIAGNOSTIC STUDIES/LAB DATA: Blood gas analysis showed, pH of 7.38, with PO2 of 168 on 100% FiO2 with O2 sat of 99.6%. WBC count was 4.4, hemoglobin of 8.8 , hematocrit of 27, platelet count of 63. Sodium 141, potassium 4.1, chloride 113, bicarb 21, BUN 36, creatinine 1.12, lactic acid normalized, and calcium 7.9. LFTs elevated, trending down. CRP significantly elevated at 267. BNP 110. Chest x-ray as described above in HPI. IMPRESSION AND RECOMMENDATIONS: 71-year-old female with multiple comorbidities with recent recurrent admissions for shortness of breath, hypoxemia with worsening interstitial process in the lung, not steroid responsive, with worsening hypoxemic respiratory failure. The patient on noninvasive positive-pressure ventilation at this time with improved work of breathing. The patient with signs of sepsis on admission, on broad-spectrum antibiotics, and also on antifungals, given recurrent doses of antibiotics and being on prednisone. Her presentation does not look like what is normally seen in Pneumocystis carinii pneumonia. She is still to be continued on Solu-Medrol in spite of nonsignificant response of her underlying lung condition recently given elevated CRP. She has significant bone marrow suppression at this point secondary to underlying chronic disease process versus fungal pneumonia versus sequestration from hepatosplenomegaly. Given prior exposure to heparin, heparin-induced thrombocytopenia is possibility , will order heparin-induced thrombocytopenia antibodies. Discussed that concern with Dr. Hill as well. He did not feel this is more in terms of heparin-induced thrombocytopenia. The patient continues to be on heparin and will be closely monitored. Will monitor for signs of bleeding. She is also on PPI. Continue with nebulizers, continue with BiPAP, discussed intubation and mechanical ventilation with the family. If condition deteriorates, she might need bone marrow biopsy if her counts do not seem to improve for management of underlying sepsis. Would recommend sending blood cultures for bacterial and fungal etiology. Thank you for allowing me to participate in the care of Ms. Daigle. [id number]/CPS #: [id number] DONALD
[2017-06-28] MEDS ORDERED: traMADol TAB* 50 MG NG TUBE PRN (21:41)
[2017-06-29] MEDS: Albuterol/Ipratropium NEB.SOL* Albuterol 2.5 MG/Ipratropium 0.5 MG 3 ML INH SCH ×4 (01:30→19:32)
[2017-06-29] MEDS: Chlorhexidine MOUTHWASH 0.12%* 15 ML UDC TOPICAL SCH ×6 (01:56→21:36)
[2017-06-29] MEDS: fentaNYL* 50 MCG/ML 2 ML VIAL (100 MCG VIAL) IV SLOW PU PRN ×2 (02:01→15:33)
[2017-06-29] MEDS: Propofol* 100 ML IV SCH ×8 (04:52→23:03)
[2017-06-29 06:28] LABS: Hematocrit 26 % (35-47); Hemoglobin 8.4 g/dl (12.0-16.0); Mean Corpuscular HGB Conc 32 g/dl (31-36); Mean Corpuscular Hemoglobin 33 pg (27-31); Mean Corpuscular Volume 101 fL (80-97); Mean Platelet Volume 11 um3 (7.4-10.4); Red Blood Count 2.58 10^6/ul (4.0-5.4); Red Cell Distribution Width 15 % (10.5-15); White Blood Count 6.4 10^3/ul (3.5-10.8)
[2017-06-29 06:30] LABS: Comments Flag Yes
[2017-06-29 06:45] LABS: ALT 119 U/L (7-52); Albumin 2.9 g/dL (3.2-5.2); Alkaline Phosphatase 192 U/L (34-104); BUN/Creatinine Ratio 36.8 (8-20); Blood Urea Nitrogen 35 mg/dL (6-24); CO2 Carbon Dioxide 20 mmol/L (22-32); Calcium 8.4 mg/dL (8.6-10.3); EGFR African American 74.4 (>60); EGFR Non-African American 57.8 (>60); Globulin 2.7 g/dL (2-4); Glucose 146 mg/dL (70-100); Phosphorus 2.9 mg/dL (2.5-5.0); Sodium 142 mmol/L (133-145); Total Protein 5.6 g/dL (6.4-8.9)
[2017-06-29 06:49] LABS: Chloride 113 mmol/L (101-111)
[2017-06-29 06:50] LABS: Anion Gap 9 mmol/L (2-11)
[2017-06-29] MEDS: Heparin VIAL(*) 5000 UNITS/ML VIAL (FIVE THOUSAND) SUBCUT SCH (06:55)
[2017-06-29] MEDS: methylPREDNISolone 125 MG* 2 ML VIAL IV SCH ×3 (07:05→23:03)
[2017-06-29] MEDS: Levothyroxine TAB* 125 MCG TAB NG TUBE SCH (07:06)
[2017-06-29] MEDS: fentaNYL Patch Check Q Shift 1 NOTE SCH ×2 (07:07→19:03)
[2017-06-29] MEDS: Aspirin EC Low Dose* 81 MG TAB.EC PO SCH (08:55)
[2017-06-29] MEDS: Gabapentin CAP(*) 300 MG PO SCH ×4 (08:55→21:36)
[2017-06-29] MEDS: Hydroxychloroquine TAB* 200 MG NG TUBE SCH ×2 (08:55→21:36)
[2017-06-29] MEDS: Lisinopril TAB* 10 MG NG TUBE SCH (08:56)
[2017-06-29] MEDS: Lansoprazole susp Kit 3 MG/ML (30 MG = 10 ML) PO SCH (08:58)
[2017-06-29] MEDS ORDERED: Lansoprazole SOLUTAB* 30 MG G TUBE SCH (09:00)
[2017-06-29 09:31] LABS: Magnesium 2.6 mg/dL (1.9-2.7)
[2017-06-29 09:37] LABS: Direct Bilirubin Redraw 0.3 mg/dL (0.03-0.18)
[2017-06-29] MEDS: Acetaminophen ADULT LIQ* 650 MG/20.3 ML UDC NG TUBE PRN (09:57)
--- NOTE | 2017-06-29 11:07 | PN ---
Progress Note - Progress Note Date of Service: 06/29/17 Note: CRITICAL CARE MEDICINE Date: 06/29/17 Time: 1045 SUBJECTIVE: Patient seen and examined. PHYSICAL EXAM: Vital Signs: Reviewed. sedated Neurologic: awake, communicating. HEENT: pupils equal. Sclera anicteric. Trachea midline. Cardiovascular: S1 S2, reg Respiratory: dec bl, forced exhalation. no wheeze. Abdomen: Soft, obese, nt. No r/g/r. Extremities: Warm. Access: picc LABS: Reviewed. IMAGING: Reviewed. MEDICATIONS: Reviewed. ASSESSMENT: 71 F Acute on chronic hypoxic respiratory failure Tx for HCAP ?fungal pna - at least to the degree worsening space. Multisystem organ dysfunction sec to hypoxemia Emphysema PLAN: Neurologic: stable. keep sedated today. sedation vacation tomorrow. Cardiovascular: Perfusing and vol status ok. not overloaded anyway. Respiratory: multifactorail failire. FiO2 still 100%. Adjusted to aprv and see if we can recruit. Cant bronch yet. see if O2 can wean towards bronch. copd adjunctives. time Gastrointestinal: tf. sup. Renal/Metabolic: myesha better. follow. Infectious Disease: tx for hcap continued. diflucan course for what is is worth. looking for timing of bronch: risk/benefit. Hematology: pancytopenia holding. follow up. Endocrine: solumedrol. Musculoskeletal: bedrest currently Psych/Social: family up to date at bedside Supportive and preventative care as ordered. SUP: ppi VTE prophylaxis: heparin Jacobs catheter given critical illness, monitoring needs for accurate assessment of MYESHA and KDIGO criteria for critically ill patients and to avoid potential harms of urinary retention, skin breakdown/ulcers. Disposition: ICU Code Status: Full presently Critical Care Time: 35min Charline Hill DO
--- NOTE | 2017-06-29 12:56 | RAD ---
HISTORY: Respiratory failure COMPARISONS: June 28, 2017 VIEWS: 1: frontal portable view of the chest at 12:25 PM FINDINGS: LINES AND TUBES: An endotracheal tube is noted with the tip overlying the trachea between the clavicles and the colton. A gastric tube is noted, with the tip in the left upper quadrant in a prepyloric position.. A right-sided PICC line is noted with the tip overlying the superior vena cava. CARDIOMEDIASTINAL SILHOUETTE: The cardiomediastinal silhouette is normal for portable technique. PLEURA: The costophrenic angles are sharp. No pleural abnormalities are noted. LUNG PARENCHYMA: There is coarse pattern of reticular opacification ABDOMEN: The upper abdomen is clear. There is no subphrenic gas. BONES AND SOFT TISSUES: No bone or soft tissue abnormalities are noted. IMPRESSION: LINES AND TUBES ABOVE. COARSE INTERSTITIAL OPACIFICATION WHICH MAY REFLECT CHRONIC INTERSTITIAL LUNG DISEASE OR PULMONARY INTERSTITIAL EDEMA, OR COMMINUTION OF BOTH.
[2017-06-29] MEDS: Levofloxacin 750 MG IVPREMIX(* 750 MG/150 ML BAG IVPB SCH (13:00)
[2017-06-29] MEDS: Cefepime 2 GM in Dextrose(*) 2 GM/50 ML BAG IV SCH (15:33)
[2017-06-29] MEDS: Fluconazole 200 MG IVPREMIX(*) 200 MG/100 ML BAG IVPB SCH (15:33)
[2017-06-29] MEDS: Pramipexole TAB* 0.125 MG NG TUBE SCH (21:36)
[2017-06-30] MEDS: Albuterol/Ipratropium NEB.SOL* Albuterol 2.5 MG/Ipratropium 0.5 MG 3 ML INH SCH ×4 (01:51→19:54)
[2017-06-30] MEDS: Propofol* 100 ML IV SCH ×6 (02:02→19:12)
[2017-06-30] MEDS: Chlorhexidine MOUTHWASH 0.12%* 15 ML UDC TOPICAL SCH ×6 (02:51→21:20)
[2017-06-30] MEDS: Levothyroxine TAB* 125 MCG TAB NG TUBE SCH (06:00)
[2017-06-30 06:04] LABS: Hematocrit 26 % (35-47); Hemoglobin 8.5 g/dl (12.0-16.0); Mean Corpuscular HGB Conc 32 g/dl (31-36); Mean Corpuscular Hemoglobin 33 pg (27-31); Mean Corpuscular Volume 102 fL (80-97); Mean Platelet Volume 10 um3 (7.4-10.4); Red Blood Count 2.55 10^6/ul (4.0-5.4); Red Cell Distribution Width 16 % (10.5-15); White Blood Count 9.6 10^3/ul (3.5-10.8)
[2017-06-30 06:22] LABS: Blood Urea Nitrogen 47 mg/dL (6-24); CO2 Carbon Dioxide 25 mmol/L (22-32); Calcium 8.5 mg/dL (8.6-10.3); Chloride 115 mmol/L (101-111); Comments Flag Yes; EGFR African American 61.5 (>60); EGFR Non-African American 47.8 (>60); Glucose 140 mg/dL (70-100); Phosphorus 4.1 mg/dL (2.5-5.0); Sodium 142 mmol/L (133-145)
[2017-06-30 06:26] LABS: Anion Gap 2 mmol/L (2-11)
[2017-06-30] MEDS: fentaNYL Patch Check Q Shift 1 NOTE SCH ×2 (06:57→19:12)
[2017-06-30] MEDS: methylPREDNISolone 125 MG* 2 ML VIAL IV SCH ×3 (06:59→22:29)
[2017-06-30] MEDS: Aspirin EC Low Dose* 81 MG TAB.EC PO SCH (07:29)
[2017-06-30] MEDS: Gabapentin CAP(*) 300 MG PO SCH ×4 (07:30→21:19)
[2017-06-30] MEDS: Lansoprazole susp Kit 3 MG/ML (30 MG = 10 ML) PO SCH (07:31)
[2017-06-30] MEDS: Acetaminophen ADULT LIQ* 650 MG/20.3 ML UDC NG TUBE PRN (07:33)
[2017-06-30] MEDS: fentaNYL* 50 MCG/ML 2 ML VIAL (100 MCG VIAL) IV SLOW PU PRN ×3 (07:33→20:11)
[2017-06-30] MEDS: Hydroxychloroquine TAB* 200 MG NG TUBE SCH ×2 (07:33→21:20)
[2017-06-30] MEDS: Lisinopril TAB* 10 MG NG TUBE SCH (07:33)
--- NOTE | 2017-06-30 13:17 | PN ---
Progress Note - Progress Note Date of Service: 06/30/17 Note: CRITICAL CARE MEDICINE Date: 06/29/17 Time: 900 SUBJECTIVE: Patient seen and examined. PHYSICAL EXAM: Vital Signs: Reviewed. sedated but less propofol Neurologic: awake, communicating. HEENT: pupils equal. Sclera anicteric. Trachea midline. Cardiovascular: S1 S2, reg Respiratory: dec bl, still with but less forced exhalation. no wheeze. Abdomen: Soft, obese, nt. No r/g/r. Extremities: Warm. Access: picc LABS: Reviewed. IMAGING: Reviewed. MEDICATIONS: Reviewed. ASSESSMENT: 71 F Acute on chronic hypoxic respiratory failure Tx for HCAP ?fungal pna - at least to the degree worsening space. Multisystem organ dysfunction sec to hypoxemia Emphysema PLAN: Neurologic: stable. keep sedated today for bronch then less sedation post. Cardiovascular: Perfusing and vol status ok. Respiratory: Fio2 to 60%. Bronch today for bal. aprv. continue spont breathing with that. Hopefully tomorrow can liberate early dirctly to niv and see if she has a chance to maintain vs needing more comfort approach. Gastrointestinal: tf. sup. Renal/Metabolic: myesha ok. bun up with steroids. Infectious Disease: tx for hcap continued. diflucan course. Hematology: pancytopenia holding. follow up. Endocrine: solumedrol - look to dec tomorrow. Musculoskeletal: bedrest currently Psych/Social: family up to date at bedside Supportive and preventative care as ordered. SUP: ppi VTE prophylaxis: heparin Jacobs catheter given critical illness, monitoring needs for accurate assessment of MYESHA and KDIGO criteria for critically ill patients and to avoid potential harms of urinary retention, skin breakdown/ulcers. Disposition: ICU Code Status: Full Critical Care Time: 35min Charline Hill DO
--- NOTE | 2017-06-30 13:27 | PN ---
Progress Note - Progress Note Date of Service: 06/30/17 Note: CRITICAL CARE MEDICINE PROCEDURE NOTE DATE: 06/30/17 TIME: 1115 SERVICE: Critical Care Medicine LOCATION OF PROCEDURE: ICU PROCEDURE: Bronchoscopy PROCEDURALIST: Dr. Hill Consent obtain: Yes Time out held: Yes INDICATION: Resp failure, ards. ?Pneumonia ISOLATION: HEPA Filter utilized PROCEDURE: Oxygenation maintained and vitals monitored. Patient in supine position. Pre-medication already on propofol gtt. Bronchoscope inserted via endotracheal tube. Ett ~3cm above the colton. mainstem, first and second order with patency; mild tbm, and signs of empysema. no overt secretions. dry. 10ml aliquots of saline were inserted, to a total of 80ml in RUL anterior segment with bal performed with about 15ml return, some blood tinge. Specimens were sent to lab. Patient otherwise tolerated well. Family at bedside throughout. Charline Hill, DO
[2017-06-30] MEDS: Cefepime 2 GM in Dextrose(*) 2 GM/50 ML BAG IV SCH (16:06)
[2017-06-30] MEDS: Fluconazole 200 MG IVPREMIX(*) 200 MG/100 ML BAG IVPB SCH (16:06)
[2017-06-30] MEDS: Pramipexole TAB* 0.125 MG NG TUBE SCH (21:20)
[2017-07-01] MEDS: Chlorhexidine MOUTHWASH 0.12%* 15 ML UDC TOPICAL SCH ×3 (01:21→11:27)
[2017-07-01] MEDS: Albuterol/Ipratropium NEB.SOL* Albuterol 2.5 MG/Ipratropium 0.5 MG 3 ML INH SCH ×3 (01:43→12:35)
[2017-07-01] MEDS: fentaNYL* 50 MCG/ML 2 ML VIAL (100 MCG VIAL) IV SLOW PU PRN ×6 (02:19→14:20)
[2017-07-01] MEDS: LORazepam INJ* 2 MG/ML 1 ML VIAL IV PUSH PRN (03:43)
[2017-07-01 04:59] LABS: Hematocrit 27 % (35-47); Hemoglobin 8.5 g/dl (12.0-16.0); Mean Corpuscular HGB Conc 32 g/dl (31-36); Mean Corpuscular Hemoglobin 32 pg (27-31); Mean Corpuscular Volume 102 fL (80-97); Mean Platelet Volume 10 um3 (7.4-10.4); Red Blood Count 2.64 10^6/ul (4.0-5.4); Red Cell Distribution Width 16 % (10.5-15); White Blood Count 11.3 10^3/ul (3.5-10.8)
[2017-07-01 05:08] LABS: Comments Flag Yes
[2017-07-01 05:09] LABS: Add Diff/Slide Review? Slide Review Added
[2017-07-01 05:14] LABS: BUN/Creatinine Ratio 63.3 (8-20); Calcium 8.7 mg/dL (8.6-10.3); EGFR African American 63.5 (>60); EGFR Non-African American 49.3 (>60); Phosphorus 4.1 mg/dL (2.5-5.0)
[2017-07-01 05:16] LABS: Potassium 5.7 mmol/L (3.5-5.0)
[2017-07-01] MEDS: methylPREDNISolone 125 MG* 2 ML VIAL IV SCH (06:14)
[2017-07-01] MEDS: Levothyroxine TAB* 125 MCG TAB NG TUBE SCH (06:14)
[2017-07-01] MEDS ORDERED: Sodium Polystyrene ORAL.SOL* 15 GM/60 ML BTL G TUBE ONE (07:17)
[2017-07-01] MEDS: fentaNYL Patch Check Q Shift 1 NOTE SCH (07:23)
[2017-07-01] MEDS ORDERED: predniSONE TAB* 20 MG PO SCH (09:00)
[2017-07-01] MEDS: Hydroxychloroquine TAB* 200 MG NG TUBE SCH (09:33)
[2017-07-01] MEDS: Gabapentin CAP(*) 300 MG PO SCH (09:33)
[2017-07-01] MEDS: Aspirin EC Low Dose* 81 MG TAB.EC PO SCH (09:35)
[2017-07-01] MEDS: Lisinopril TAB* 10 MG NG TUBE SCH (09:35)
--- NOTE | 2017-07-01 09:46 | PN ---
Progress Note - Progress Note Date of Service: 07/01/17 Note: CRITICAL CARE MEDICINE Date: 07/01/17 Time: 900 SUBJECTIVE: Patient seen and examined. family not present yet. PHYSICAL EXAM: Vital Signs: Reviewed. sedated but much less propofol Neurologic: awake, attempting to communicating. HEENT: pupils equal. Sclera anicteric. Trachea midline. Cardiovascular: S1 S2, tachy Respiratory: dec bl, no rales nor wheeze. keely aprv. FIO2 50%. Abdomen: Soft, obese, nt. Extremities: Warm. Access: picc LABS: Reviewed. cx neg IMAGING: Reviewed. MEDICATIONS: Reviewed. ASSESSMENT: 71 F Acute on chronic hypoxic respiratory failure Tx for HCAP ?fungal pna - at least to the degree worsening space. Multisystem organ dysfunction sec to hypoxemia Emphysema PLAN: Neurologic: stable. holding propofol today. prn morphine. Cardiovascular: Perfusing and vol status dry but leaving her on the dry side. Respiratory: Fio2 to 50%. keely as well as she can. liberate directly to niv and then to HFO2 and see how she can fair with support. Gastrointestinal: tf held. sup. Renal/Metabolic: myesha ok on dry side. bun/k up with steroids. Infectious Disease: tx with levaquin and diflucan course for what it is worth. Hematology: plt up some. on hsq. follow up clincally. Endocrine: solumedrol changed to prednisone. Musculoskeletal: bedrest currently and may need pt post liberation depending on her condition Psych/Social: family will be present soon. Supportive and preventative care as ordered. SUP: ppi VTE prophylaxis: heparin Jacobs catheter given critical illness, monitoring needs for accurate assessment of MYESHA and KDIGO criteria for critically ill patients and to avoid potential harms of urinary retention, skin breakdown/ulcers. Disposition: ICU Code Status: Full presently Critical Care Time: 35min Charline Hill DO
[2017-07-01] MEDS: Lansoprazole susp Kit 3 MG/ML (30 MG = 10 ML) PO SCH (10:26)
[2017-07-01] MEDS: Hydroxychloroquine TAB* 200 MG PO SCH (11:32)
[2017-07-01] MEDS: Pramipexole TAB* 0.125 MG PO SCH (11:32)
[2017-07-01] MEDS ORDERED: D5W 1000 ML BAG* 1,000 ML IV SCH ×2 (13:00→14:03)
[2017-07-01] MEDS: Levofloxacin 750 MG IVPREMIX(* 750 MG/150 ML BAG IVPB SCH (13:15)
[2017-07-01] MEDS ORDERED: Heparin VIAL(*) 5000 UNITS/ML VIAL (FIVE THOUSAND) SUBCUT SCH (14:00)
--- NOTE | 2017-07-01 14:10 | PN ---
Progress Note - Progress Note Date of Service: 07/01/17 Note: CRITICAL CARE MEDICINE Date: 07/01/17 Time: 1410 Follow up of pt post liberation. Slightly groggy still but RR and HR still up. 70% NIV with good volumes but still with large V/Q mismatch and not able to tolerate any transition off ppv. D/w family at bedside. They express understanding. Will look to ensure further comfort and then dc niv without return to it and comfort measures to ensue. Disposition: ICU presently Code Status: change to DNR/DNI Critical Care Time: 20min FFrancheska Hill DO
--- NOTE | 2017-07-01 14:35 | DS ---
CRITICAL CARE MEDICINE DISCHARGE SUMMARY ADMISSION DATE: 06/27/2017 ICU ADMISSION DATE: 06/27/2017 ICU DISCHARGE DATE: 07/01/2017 PRIMARY CARE PROVIDER: Kemar. REFERRING PHYSICIAN: Lester. DIAGNOSIS: 1. Acute on chronic hypoxic respiratory failure. 2. Sepsis secondary to culture negative pneumonia. 3. Acute interstitial pneumonitis. 4. Treatment for fungal pneumonia. 5. Acute renal failure. 6. Chronic emphysema. MEDICATIONS AT DISCHARGE: None. HOSPITAL COURSE: 71 year old female presenting with increasing shortness of breath at home. Oxygen dependent. UNderlying emphysema and worsening concern for lung fibrosis and interstitial disease with worsening disease and hypoxic failure. Treatment for pneumonia and sepsis but unable to maintain with just high flow oxygen, requiring a trial of intubation. Slow but some mild oxgentation improvement with positive pressure. Bronchoscopy unrevealing. Concluded her intubation trial on 07/01/17 with liberation directly to non- invasive ventilation but her positive pressure dependency revealed. Increased comfort care measures and discontinuation of ventilation efforts. Comfort and passed in ICU. DISPOSITION: . Charline Hill DO
[2017-07-01] MEDS ORDERED: Morphine PCA ADULT* 5 MG/ML 30 ML PCA SCH ×4 (15:00→16:05)
[2017-07-01 15:15] VITALS: BP 147/126
[2017-07-01] MEDS ORDERED: Morphine INJ* 10 MG/ML 1 ML CARPUJECT IV ONE ×2 (15:52→15:55)
== END 2017-07-01 16:50 | disposition expired | DRG 853 ==
LOC: ED 10:49 → ICU 14:25
PROVIDERS: ADMIT Internal Medicine; ATTEND Internal Medicine Critical Care Medicine
PROC: 5A09357 Assistance with Respiratory Ventilation, Less than 24 Consecutive Hours, Continuous Positive Airway Pressure (ICD-10-PCS; 2017-06-27)
PROC: 5A1945Z Respiratory Ventilation, 24-96 Consecutive Hours (ICD-10-PCS; principal; 2017-06-28)
PROC: 0BH17EZ Insertion of Endotracheal Airway into Trachea, Via Natural or Artificial Opening (ICD-10-PCS; 2017-06-28)
PROC: 02HV33Z Insertion of Infusion Device into Superior Vena Cava, Percutaneous Approach (ICD-10-PCS; 2017-06-28)
PROC: 0B9C8ZX Drainage of Right Upper Lung Lobe, Via Natural or Artificial Opening Endoscopic, Diagnostic (ICD-10-PCS; 2017-06-30)
DX: A41.9 Sepsis, unspecified organism (principal); J96.21 Acute and chronic respiratory failure with hypoxia; J16.8 Pneumonia due to other specified infectious organisms; N17.9 Acute kidney failure, unspecified; J84.114 Acute interstitial pneumonitis; I11.0 Hypertensive heart disease with heart failure; I50.810 Right heart failure, unspecified; B49 Unspecified mycosis; I34.1 Nonrheumatic mitral (valve) prolapse; R65.20 Severe sepsis without septic shock; M06.9 Rheumatoid arthritis, unspecified; J43.9 Emphysema, unspecified; E03.9 Hypothyroidism, unspecified; K21.9 Gastro-esophageal reflux disease without esophagitis; M81.0 Age-related osteoporosis without current pathological fracture; M47.9 Spondylosis, unspecified; R40.2412 Glasgow coma scale score 13-15, at arrival to emergency department; Z96.641 Presence of right artificial hip joint; Z66 Do not resuscitate; G47.33 Obstructive sleep apnea (adult) (pediatric); G43.909 Migraine, unspecified, not intractable, without status migrainosus; Z90.710 Acquired absence of both cervix and uterus; Z98.1 Arthrodesis status; Z82.3 Family history of stroke; Z82.49 Family history of ischemic heart disease and other diseases of the circulatory system; Z82.5 Family history of asthma and other chronic lower respiratory diseases; Z88.8 Allergy status to other drugs, medicaments and biological substances; Z88.1 Allergy status to other antibiotic agents; Z91.040 Latex allergy status; Z86.718 Personal history of other venous thrombosis and embolism; Z98.42 Cataract extraction status, left eye; Z98.41 Cataract extraction status, right eye; Z84.1 Family history of disorders of kidney and ureter; Z87.891 Personal history of nicotine dependence; Z86.73 Personal history of transient ischemic attack (TIA), and cerebral infarction without residual deficits; Z90.79 Acquired absence of other genital organ(s)
CPT/HCPCS: 31622; 36415; 71010; 80048; 80053; 80076; 81003; 81015; 82550; 82553; 82570; 82803; 83605; 83690; 83735; 83880; 84100; 84300; 84443; 84484; 85025; 85060; 85379; 85610; 85730; 86140; 87040; 87070; 87086; 87102; 87103; 87205; 87502; 87798; 87899; 93005; 94002; 94003; 94640; 94660; 94760; A9270-GY; C1751; J0282; J0692; J1450; J1644; J2060; J2270; J2704; J2930; J3010; J7512